=== PATIENT | male | born 1980 | race Caucasian/White ===

== ENCOUNTER → 2016-11-25 | Outpatient (CLI) | payer OTHER ==
--- NOTE | 2016-11-25 12:40 | XR ---
EXAMINATION TYPE: XR wrist complete RT DATE OF EXAM: 11/25/2016 COMPARISON: NONE HISTORY: Pain TECHNIQUE: Four views submitted. FINDINGS: The osseous structures are intact. The joint spaces are preserved and there is no acute fracture or dislocation. IMPRESSION: 1. No definite acute fracture or dislocation if symptoms persist, follow-up study in 7 to 10 days wo uld be suggested
== END ==
LOC: RADXRMAIN 12:00
PROVIDERS: ATTEND Emergency Medicine
DX: S60.211A Contusion of right wrist, initial encounter (principal)

== ENCOUNTER 2018-05-24 14:18 | Emergency (ER) | payer BC ==
[2018-05-24 14:33] VITALS: RESP 18
[2018-05-24] MEDS ORDERED: SODIUM CHLORIDE 0.9% 1,000 ML IV STA (14:48)
[2018-05-24] MEDS ORDERED: SODIUM CHLORIDE 0.9% 500 ML 500 ML IV STA (14:48)
--- NOTE | 2018-05-24 14:50 | ED ---
Seizure HPI - General Chief Complaint: Seizure Stated Complaint: poss seizure, head injury Time Seen by Provider: 05/24/18 14:35 Source: patient, RN notes reviewed, old records reviewed Mode of arrival: ambulatory Limitations: physical limitation - History of Present Illness Initial Comments: This is a 37-year-old male the ER for evaluation of what he believes is a seizure-like activity occurred during sleep. Patient has no recollection of injury, symptoms occurred 2 days ago. Patient denies loss of bowel or bladder denies biting his tongue. Denies drug or alcohol abuse. denies physical confrontation assault. Patient is without significant complaint. Presents today with his and family concerned for possible patient's having seizure MD Complaint: possible seizure -: days(s) Description of Episode: other (Patient was sleeping during event) -: second(s) (Unknown) Witnessed: no Trauma: Yes Seizure History: none Place: home Possible Precipitating Event: none Associated Symptoms: denies other symptoms Treatments Prior to Arrival: none - Related Data Home Medications Medication Instructions Recorded Confirmed No Known Home Medications 05/24/18 05/25/18 Allergies Allergy/AdvReac Type Severity Reaction Status Date / Time Fish Containing Products AdvReac Nausea Verified 05/25/18 08:11 [Fish] Review of Systems ROS Statement: Those systems with pertinent positive or pertinent negative responses have been documented in the HPI. ROS Other: All systems not noted in ROS Statement are negative. Past Medical History Past Medical History: Asthma History of Any Multi-Drug Resistant Organisms: None Reported Past Surgical History: No Surgical Hx Reported Past Psychological History: No Psychological Hx Reported Smoking Status: Never smoker Past Alcohol Use History: None Reported Past Drug Use History: None Reported General Exam Limitations: no limitations General appearance: alert, in no apparent distress Head exam: Present: normocephalic, normal inspection. Absent: atraumatic ( Patient does have abrasion bruising to right forearm, small healed lacerations above left eye and left) Eye exam: Present: normal appearance, PERRL, EOMI. Absent: scleral icterus, conjunctival injection, periorbital swelling ENT exam: Present: normal exam, mucous membranes moist Neck exam: Present: normal inspection. Absent: tenderness, meningismus, lymphadenopathy Respiratory exam: Present: normal lung sounds bilaterally. Absent: respiratory distress, wheezes, rales, rhonchi, stridor Cardiovascular Exam: Present: regular rate, normal rhythm, normal heart sounds. Absent: systolic murmur, diastolic murmur, rubs, gallop, clicks GI/Abdominal exam: Present: soft, normal bowel sounds. Absent: distended, tenderness, guarding, rebound, rigid Extremities exam: Present: normal inspection, full ROM, normal capillary refill. Absent: tenderness, pedal edema, joint swelling, calf tenderness Back exam: Present: normal inspection Neurological exam: Present: alert, oriented X3, CN II-XII intact Psychiatric exam: Present: normal affect, normal mood Skin exam: Present: warm, dry, intact, normal color. Absent: rash Course Vital Signs 05/24/18 05/24/18 14:27 17:12 Temperature 98.3 F 98.2 F Pulse Rate 82 78 Respiratory 18 18 Rate Blood Pressure 142/95 141/80 O2 Sat by Pulse 98 99 Oximetry - Reevaluation(s) Reevaluation #1: Medical record is reviewed Patient symptoms are improved, patient without complaint Spoke with patient at length regarding possible causes of seizure-like activity at his age, informed her results of testing negative, questions are answered. Patient comes in for discharge home Medical Decision Making - Medical Decision Making 37 male the ER for evaluation of head injury. Patient had seizure-like activity wall sleeping. Patient's brought in by . Patient has abrasions to right right forehead and a couple mild small laceration is healing. And is at that occurred 2 days ago. Patient is currently without significant complaining - Lab Data Result diagrams: 05/24/18 15:05 05/24/18 15:05 Lab Results 05/24/18 05/24/18 05/24/18 Range/Units 15:05 15:05 15:05 WBC 8.9 (3.8-10.6) k/uL RBC 5.06 (4.30-5.90) m/uL Hgb 15.7 (13.0-17.5) gm/dL Hct 46.0 (39.0-53.0) % MCV 90.9 (80.0-100.0) fL MCH 31.1 (25.0-35.0) pg MCHC 34.2 (31.0-37.0) g/dL RDW 13.6 (11.5-15.5) % Plt Count 266 (150-450) k/uL Neutrophils % 78 % Lymphocytes % 13 % Monocytes % 5 % Eosinophils % 2 % Basophils % 0 % Neutrophils # 6.9 (1.3-7.7) k/uL Lymphocytes # 1.2 (1.0-4.8) k/uL Monocytes # 0.5 (0-1.0) k/uL Eosinophils # 0.1 (0-0.7) k/uL Basophils # 0.0 (0-0.2) k/uL Sodium 141 (137-145) mmol/L Potassium 4.3 (3.5-5.1) mmol/L Chloride 105 (98-107) mmol/L Carbon Dioxide 25 (22-30) mmol/L Anion Gap 11 mmol/L BUN 10 (9-20) mg/dL Creatinine 1.25 (0.66-1.25) mg/dL Est GFR (CKD-EPI)AfAm 86 (>60 ml/min/1.73 sqM) Est GFR (CKD-EPI)NonAf 74 (>60 ml/min/1.73 sqM) Glucose 93 (74-99) mg/dL Plasma Lactic Acid Emmett 1.4 (0.7-2.0) mmol/L Calcium 9.9 (8.4-10.2) mg/dL Phosphorus 3.9 (2.5-4.5) mg/dL Magnesium 1.8 (1.6-2.3) mg/dL Total Bilirubin 0.9 (0.2-1.3) mg/dL AST 42 (17-59) U/L ALT 55 (21-72) U/L Alkaline Phosphatase 69 (38-126) U/L Total Protein 8.1 (6.3-8.2) g/dL Albumin 4.4 (3.5-5.0) g/dL Salicylates <1.0 mg/dL Acetaminophen <10.0 ug/mL Serum Alcohol <10 mg/dL - Radiology Data Radiology results: report reviewed (The brain negative for acute disease), image reviewed Disposition Clinical Impression: New onset seizure Disposition: HOME SELF-CARE Condition: Good Instructions: New-Onset Seizure in Adults (ED) Is patient prescribed a controlled substance at d/c from ED?: No Referrals: Kirk Dempsey MD [Primary Care Provider] - 1-2 days
[2018-05-24 15:40] LABS: Basophils % (A) 0 %; Eosinophils # (A) 0.1 k/uL (0-0.7); Eosinophils % (A) 2 %; HGB 15.7 gm/dL (13.0-17.5); Lymphocytes # (A) 1.2 k/uL (1.0-4.8); Lymphocytes % (A) 13 %; MCH 31.1 pg (25.0-35.0); MCHC 34.2 g/dL (31.0-37.0); MCV 90.9 fL (80.0-100.0); Mean Platelet Volume 8.2; Monocytes # (A) 0.5 k/uL (0-1.0); Monocytes % (A) 5 %; Neutrophils # (A) 6.9 k/uL (1.3-7.7); Neutrophils % (A) 78 %; Platelet Count 266 k/uL (150-450); RBC 5.06 m/uL (4.30-5.90); RDW 13.6 % (11.5-15.5); WBC 8.9 k/uL (3.8-10.6)
--- NOTE | 2018-05-24 15:52 | CT ---
EXAMINATION TYPE: CT brain wo con DATE OF EXAM: 05/24/2018 COMPARISON: None. HISTORY: Possible seizure CT DLP: 1062.4 mGycm. Automated Exposure Control for Dose Reduction was Utilized. TECHNIQUE: CT scan of the head is performed without contrast. FINDINGS: There is no acute intracranial hemorrhage, mass effect, or midline shift identified. The ventricles and sulci are within normal limits in size. Gonzalez-white matter differentiation is maintain ed. Constipation along the anterior interhemispheric fissure is seen. The globes are intact and the v isualized sinuses are clear. IMPRESSION: No acute intracranial hemorrhage, mass effect, or midline shift is seen.
[2018-05-24 15:57] LABS: ALT 55 U/L (21-72); AST 42 U/L (17-59); Acetaminophen <10.0 ug/mL; Albumin 4.4 g/dL (3.5-5.0); Alcohol <10 mg/dL; Alkaline Phosphatase 69 U/L (38-126); Anion Gap 11 mmol/L; Blood Urea Nitrogen 10 mg/dL (9-20); Calcium 9.9 mg/dL (8.4-10.2); Carbon Dioxide 25 mmol/L (22-30); Chloride 105 mmol/L (98-107); Glucose 93 mg/dL (74-99); Magnesium 1.8 mg/dL (1.6-2.3); Phosphorus 3.9 mg/dL (2.5-4.5); Potassium 4.3 mmol/L (3.5-5.1); Salicylate <1.0 mg/dL; Sodium 141 mmol/L (137-145); Total Bilirubin 0.9 mg/dL (0.2-1.3); Total Protein 8.1 g/dL (6.3-8.2)
[2018-05-24 17:14] VITALS: BP 141/80; PULSE 78; TEMP 98.2
== END 2018-05-24 17:12 | disposition home or self-care (01) ==
LOC: EC 14:18
DX: S01.81XA Laceration without foreign body of other part of head, initial encounter (principal); S50.11XA Contusion of right forearm, initial encounter; R56.9 Unspecified convulsions; Z91.013 Allergy to seafood
CPT/HCPCS: 36415; 70450; 80053; 80320; 83520; 83605; 83735; 84100; 85025; 96360; 96361; 99285

== ENCOUNTER 2018-05-25 07:13 | Inpatient (IN) | payer BC ==
--- NOTE | 2018-05-25 07:24 | ED ---
General Adult HPI - General Stated complaint: seizure Time Seen by Provider: 05/25/18 07:13 Source: RN notes reviewed - History of Present Illness Initial comments: This is a 37-year-old male who presents emergency Department with a possible seizure. Patient has no history of seizures except for yesterday he had a seizure he also has had escalating contusion over the right eye and a small laceration over the left eye. Patient was seen in the emergency department at that time and had a CAT scan it was negative. Patient was found down on the ground after the had come down to investigate what was going on because she heard some banging. That point in time the patient was no longer convulsing but he was not responding to the when EMS arrived they stated he was post ictal. Patient currently is alert and oriented 3 however he does not remember the events of the morning he has no complaint currently. Patient denies any chest pain difficult breathing shortness of breath per patient denies any drug or alcohol use. Patient denies any recent fever or chills. Patient denies any abdominal pain. Patient denies any nausea vomiting. - Related Data Home Medications Medication Instructions Recorded Confirmed No Known Home Medications 05/24/18 05/25/18 Allergies Allergy/AdvReac Type Severity Reaction Status Date / Time Fish Containing Products AdvReac Nausea Verified 05/25/18 08:11 [Fish] Review of Systems ROS Statement: Those systems with pertinent positive or pertinent negative responses have been documented in the HPI. ROS Other: All systems not noted in ROS Statement are negative. Past Medical History Past Medical History: Asthma History of Any Multi-Drug Resistant Organisms: None Reported Past Surgical History: No Surgical Hx Reported Past Psychological History: No Psychological Hx Reported Smoking Status: Never smoker Past Alcohol Use History: None Reported Past Drug Use History: None Reported General Exam - General Exam Comments Initial Comments: GENERAL: Patient is well-developed and well-nourished. Patient is nontoxic and well- hydrated and is in mild distress. Patient has a tender contusion over the right eye which she states was there from the other day when he was seen in the emergency department. ENT Neck is soft and supple. No significant lymphadenopathy is noted. Oropharynx is clear. Moist mucous membranes. Neck has full range of motion without eliciting any pain. EYES: The sclera were anicteric and conjunctiva were pink and moist. Extraocular movements were intact and pupils were equal round and reactive to light. Eyelids were unremarkable. Patient has a small laceration that appears to be healing on the left upper eyelid. PULMONARY: Unlabored respirations. Good breath sounds bilaterally. No audible rales rhonchi or wheezing was noted. CARDIOVASCULAR: There is a regular rate and rhythm without any murmurs gallops or rubs. ABDOMEN: Soft and nontender with normal bowel sounds. SKIN: Skin is clear with no lesions or rashes and otherwise unremarkable. NEUROLOGIC: Patient is alert and oriented x3. Cranial nerves II through XII are grossly intact. Motor and sensory are also intact. Normal speech, volume and content. Symmetrical smile. MUSCULOSKELETAL: Normal extremities with adequate strength and full range of motion. No lower extremity swelling or edema. No calf tenderness. LYMPHATICS: No significant lymphadenopathy is noted PSYCHIATRIC: Normal psychiatric evaluation. Course Vital Signs 05/25/18 05/25/18 07:17 08:15 Temperature 98.4 F Pulse Rate 99 93 Respiratory 18 18 Rate Blood Pressure 135/67 O2 Sat by Pulse 98 99 Oximetry Medical Decision Making - Medical Decision Making EKG shows normal sinus rhythm at 86 bpm SC interval is 154 QRS is 82 QT interval 358 QTC is 428. Patient's EKG shows no ST segment elevation or depression. Computed tomography scan of the brain shows no acute abnormality. Patient is back to his baseline and he has had no seizures while in the emergency department. I spoke with Dr. argueta we admitted the patient consult the neurology. - Lab Data Result diagrams: 05/25/18 07:25 05/25/18 07:25 Lab Results 05/25/18 05/25/18 05/25/18 Range/Units 07:25 07:25 07:25 WBC 7.5 (3.8-10.6) k/uL RBC 4.95 (4.30-5.90) m/uL Hgb 14.9 (13.0-17.5) gm/dL Hct 45.4 (39.0-53.0) % MCV 91.8 (80.0-100.0) fL MCH 30.2 (25.0-35.0) pg MCHC 32.9 (31.0-37.0) g/dL RDW 13.7 (11.5-15.5) % Plt Count 283 (150-450) k/uL Neutrophils % 59 % Lymphocytes % 27 % Monocytes % 5 % Eosinophils % 5 % Basophils % 1 % Neutrophils # 4.4 (1.3-7.7) k/uL Lymphocytes # 2.0 (1.0-4.8) k/uL Monocytes # 0.4 (0-1.0) k/uL Eosinophils # 0.4 (0-0.7) k/uL Basophils # 0.0 (0-0.2) k/uL Sodium 142 (137-145) mmol/L Potassium 4.5 (3.5-5.1) mmol/L Chloride 109 H (98-107) mmol/L Carbon Dioxide 16 L (22-30) mmol/L Anion Gap 17 mmol/L BUN 11 (9-20) mg/dL Creatinine 1.40 H (0.66-1.25) mg/dL Est GFR (CKD-EPI)AfAm 75 (>60 ml/min/1.73 sqM) Est GFR (CKD-EPI)NonAf 64 (>60 ml/min/1.73 sqM) Glucose 143 H (74-99) mg/dL Calcium 9.7 (8.4-10.2) mg/dL Magnesium 1.8 (1.6-2.3) mg/dL Total Bilirubin 1.0 (0.2-1.3) mg/dL AST 50 (17-59) U/L ALT 42 (21-72) U/L Alkaline Phosphatase 65 (38-126) U/L Total Protein 7.9 (6.3-8.2) g/dL Albumin 4.4 (3.5-5.0) g/dL Urine Color Light Yellow Urine Appearance Clear (Clear) Urine pH 5.0 (5.0-8.0) Ur Specific [place] 1.012 (1.001-1.035) Urine Protein 1+ H (Negative) Urine Glucose (UA) Negative (Negative) Urine Ketones 1+ H (Negative) Urine Blood Moderate H (Negative) Urine Nitrite Negative (Negative) Urine Bilirubin Negative (Negative) Urine Urobilinogen <2.0 (<2.0) mg/dL Ur Leukocyte Esterase Negative (Negative) Urine RBC <1 (0-5) /hpf Urine WBC 1 (0-5) /hpf Urine Bacteria Rare H (None) /hpf Urine Mucus Rare H (None) /hpf Urine Opiates Screen Not Detected (NotDetected) Ur Oxycodone Screen Not Detected (NotDetected) Urine Methadone Screen Not Detected (NotDetected) Ur Propoxyphene Screen Not Detected (NotDetected) Ur Barbiturates Screen Not Detected (NotDetected) U Tricyclic Antidepress Not Detected (NotDetected) Ur Phencyclidine Scrn Not Detected (NotDetected) Ur Amphetamines Screen Not Detected (NotDetected) U Methamphetamines Scrn Not Detected (NotDetected) U Benzodiazepines Scrn Not Detected (NotDetected) Urine Cocaine Screen Not Detected (NotDetected) U Marijuana (THC) Screen Detected H (NotDetected) Disposition Clinical Impression: New onset seizure Disposition: ADMITTED IP TO THIS HOSP Referrals: Kirk Argueta MD [Primary Care Provider] - 1-2 days Time of Disposition: 08:37
[2018-05-25 07:52] LABS: Basophils % (A) 1 %; Eosinophils # (A) 0.4 k/uL (0-0.7); Eosinophils % (A) 5 %; HCT 45.4 % (39.0-53.0); HGB 14.9 gm/dL (13.0-17.5); Lymphocytes % (A) 27 %; MCH 30.2 pg (25.0-35.0); MCHC 32.9 g/dL (31.0-37.0); MCV 91.8 fL (80.0-100.0); Mean Platelet Volume 7.8; Monocytes # (A) 0.4 k/uL (0-1.0); Monocytes % (A) 5 %; Neutrophils # (A) 4.4 k/uL (1.3-7.7); Neutrophils % (A) 59 %; Platelet Count 283 k/uL (150-450); RBC 4.95 m/uL (4.30-5.90); RDW 13.7 % (11.5-15.5); WBC 7.5 k/uL (3.8-10.6)
[2018-05-25 08:00] LABS: Appearance,Urine Clear (Clear); Bacteria,Urine Rare /hpf; Bilirubin,Urine Negative (Negative); Blood,Urine Moderate (Negative); Color,Urine Light Yellow; Glucose,Urine (UA) Negative (Negative); Ketones,Urine 1+ (Negative); Leukocyte Esterase,Urine Negative (Negative); Mucus,Urine Rare /hpf; Nitrite,Urine Negative (Negative); Protein,Urine 1+ (Negative); RBC,Urine <1 /hpf (0-5); Specific Gravity,Urine 1.012 (1.001-1.035); Urobilinogen,Urine <2.0 mg/dL (<2.0); WBC,Urine 1 /hpf (0-5)
[2018-05-25 08:02] LABS: Albumin 4.4 g/dL (3.5-5.0); Calcium 9.7 mg/dL (8.4-10.2); Magnesium 1.8 mg/dL (1.6-2.3); Potassium 4.5 mmol/L (3.5-5.1); Total Protein 7.9 g/dL (6.3-8.2)
[2018-05-25 08:04] LABS: Phencyclidine Screen,Urine Not Detected (NotDetected); Urn Cannabinoid Scrn Detected (NotDetected)
[2018-05-25 08:05] LABS: Amphetamine Screen,Urine Not Detected (NotDetected); Barbiturate Screen,Urine Not Detected (NotDetected); Benzodiazepines Screen,Urine Not Detected (NotDetected); Cocaine Screen,Urine Not Detected (NotDetected); Methadone Screen, Urine Not Detected (NotDetected); Opiate Screen,Urine Not Detected (NotDetected); Oxycodone Screen, Urine Not Detected (NotDetected); Tricyclic Antidepressant,Urine Not Detected (NotDetected)
--- NOTE | 2018-05-25 08:16 | CT ---
EXAMINATION TYPE: CT brain wo con DATE OF EXAM: 05/25/2018 COMPARISON: 05/24/2018 HISTORY: Possible seizure CT DLP: 1056.[address] of the brain was performed. The ventricles, basal cisterns and sulci overlying the cerebral convexities demonstrate a normal appe arance. There is no evidence for intracranial hemorrhage or sulcal effacement. No mass effects are seen. Osseous calvarium is intact. If symptoms persist consider MRI as clinically warranted. IMPRESSION: 1. No acute intracranial process is seen at this time.
[2018-05-25] MEDS ORDERED: SODIUM CHLORIDE 0.9% 1,000 ML IV ONE (08:37)
[2018-05-25] MEDS ORDERED: IBUPROFEN 400 MG TAB PO PRN (10:16)
[2018-05-25] MEDS ORDERED: LORazepam 2 MG/ML INJ IV PRN (10:43)
[2018-05-25] MEDS ORDERED: ACETAMINOPHEN TAB 325 MG TAB PO PRN (10:56)
[2018-05-25] MEDS: SODIUM CHLORIDE 0.9% 1,000 ML IV SCH (11:06)
[2018-05-25] MEDS: ACETAMINOPHEN IV (For NPO) 1,000 MG in EMPTY BAG 1 BAG IVPB PRN ×3 (12:05→23:34)
[2018-05-25] MEDS ORDERED: LIDOCAINE VISCOUS 2% 15 ML CUP MUCOUS MEM ONE (16:57)
--- NOTE | 2018-05-25 22:31 | P.CNNES ---
History of Present Illness Consult date: 05/25/18 Requesting physician: Cristhian Crooks Reason for Consult: seizure Chief complaint: seizure History of Present Illness: Neurology is consulting on a 37-year-old male for new onset seizure who presented to the ED. He has no prior seizure history, however patient was sleeping in bed and fell out of bed to the floor struck his head in the right frontal area and suffered a small laceration over the left eye. Patient was found on the ground by his after hearing some banging. Spouse described what appeared to be generalized tonic-clonic seizure and convulsion. When EMS arrived EMS reports that the patient was postictal. Patient did have oral trauma and did have release of bowels and/or bladder. Initially this was believed to have been the only occurrence. After speaking with the patient he also had a previous occurrence the night before and both occurrences took place and admitted that the seizures took place after the patient had been smoking marijuana. Patient previously did not disclose this information. Patient did disclose that he is a marijuana user but did not disclose the use in conjunction with the seizures. He works multiple jobs to support his family and is under high stress and reportedly was using marijuana to relax and decrease his stress at the end of the day. while speaking with the patient, became apparent that the patient was having short-term memory difficulty with regard to events in recent past information. Patient's spouse reports that he appears only approximately 50-65% back to baseline with regard to memory. Patient, spouse and nursing staff report no seizure-like activity since hospitalization. On contact, patient was alert and intermittently oriented 3, spouse at the bedside, no acute distress. Review of Systems all systems not noted in HPI are negative Past Medical History Past Medical History: Asthma Additional Past Medical History / Comment(s): Pt seen in ER 05/24/18 possible seizure/head injury. History of Any Multi-Drug Resistant Organisms: None Reported Past Surgical History: No Surgical Hx Reported Additional Past Surgical History / Comment(s): Surgery for undescended testicle as a teen. Past Anesthesia/Blood Transfusion Reactions: No Reported Reaction Smoking Status: Never smoker - Past Family History Father Family Medical History: CVA/TIA Additional Family Medical History / Comment(s): Father had a CVA. He is Mother Family Medical History: Cancer Additional Family Medical History / Comment(s): Mother of ovarian cancer. Medications and Allergies Home Medications Medication Instructions Recorded Confirmed Type No Known Home Medications 05/24/18 05/25/18 History Allergies Allergy/AdvReac Type Severity Reaction Status Date / Time Fish Containing Products AdvReac Nausea Verified 05/25/18 08:11 [Fish] Physical Examination - Vital Signs Vital Signs: Vital Signs Temp Pulse Pulse Pulse Resp BP BP 05/25/18 19:43 98.4 F 80 17 136/85 05/25/18 16:07 90 16 05/25/18 14:47 99.1 F 90 16 136/89 05/25/18 09:14 98.5 F 78 16 140/95 05/25/18 09:00 89 18 121/84 05/25/18 08:15 93 18 05/25/18 07:17 98.4 F 99 18 135/67 Pulse Ox 05/25/18 19:43 97 05/25/18 16:07 05/25/18 14:47 99 05/25/18 09:14 99 05/25/18 09:00 99 05/25/18 08:15 99 05/25/18 07:17 98 Intake and Output 05/25/18 05/25/18 05/25/18 06:59 14:59 22:59 Intake Total 900 325 Balance 900 325 Intake: Intake, IV Titration 400 Amount Sodium Chloride 0.9% 1, 250 000 ml @ 125 mls/hr IV . Q8H [facility] Rx#:[id number] Sodium Chloride 0.9% 1, 150 000 ml @ 75 mls/hr IV . [id number] Rx#:[id number] Oral 500 325 Other: Weight 77.111 kg 77.111 kg General appearance: Alert & oriented x23, no apparent distress. Head: Atraumatic, normocephalic, normal inspection Eyes: PERRLA, EOMI Ear, nose and throat: Normal exam, mucous membranes moist Neck: Normal inspection, absent tenderness, lymphadenopathy. Respiratory: No increased work of breathing Cardiovascular: Regular rate, rhythm GI/abdominal: No guarding, no rigidity Extremities: moves all extremities Neurological: cranial nerves II through XII intact no lateralizing weakness no seizure activity noted on physical exam no pronator drift and no nystagmus. Strength: full in all 4 extremities Sensation: Left lower extremity: normal Right lower extremity: normal Left upper extremity: normal Right upper extremity:normal Psychological: Mood and Affect appropriate for setting Results CT brain negative for acute process EEG taken MRI brain ordered - Laboratory Findings CBC and BMP: 05/25/18 07:25 05/25/18 07:25 Abnormal Lab Findings: Abnormal Labs 05/25/18 05/25/18 07:25 07:25 Chloride 109 H Carbon Dioxide 16 L Creatinine 1.40 H Glucose 143 H Urine Protein 1+ H Urine Ketones 1+ H Urine Blood Moderate H Urine Bacteria Rare H Urine Mucus Rare H U Marijuana (THC) Screen Detected H Assessment and Plan (1) Cannabis use with cannabis-induced disorder Current Visit: Yes Status: Acute Code(s): F12.99 - CANNABIS USE, UNSP WITH UNSP CANNABIS-INDUCED DISORDER SNOMED Code(s): 92436951 (2) New onset seizure Current Visit: Yes Status: Acute Code(s): R56.9 - UNSPECIFIED CONVULSIONS SNOMED Code(s): 57402643 (3) Concussion Current Visit: Yes Status: Acute Code(s): S06.0X9A - CONCUSSION W LOSS OF CONSCIOUSNESS OF UNSP DURATION, INIT SNOMED Code(s): 340006581 (4) Marijuana abuse Current Visit: Yes Status: Acute Code(s): F12.10 - CANNABIS ABUSE, UNCOMPLICATED SNOMED Code(s): 59253969 Plan: Patient does appear to have experienced two new onset seizures directly related and in conjunction with marijuana use. Seizures occurred within 1-4 hours of marijuana use. It is unable to be determined if the marijuana was laced with an illicit substance or not. At this time it does appear that the seizures were related to the use. However an EEG has been ordered for further workup to rule out seizure disorder. Patient does have evident short-term memory dysfunction at this time. He does have a significant contusion to his right frontal area and a small laceration to his left eyelid which does make postconcussion syndrome likely as a possible etiology to account for patient's memory dysfunction. Patient does deny headache however, I am going to order an MRI of the brain to further investigate any other underlying etiology that could account for patient's symptoms at this time. For now, the patient will not be started on seizure medication. Patient has had no new seizure activity since arriving at the facility. If patient does begin to experience any further seizure activity, patient will be given a loading dose of 1000 mg IV Keppra and neurology notified immediately for further instructions. Seizure precautions to remain in place as implemented. Neurological checks as implemented at this time. Further updates to follow. Patient was advised under [place] law he cannot operate a motor vehicle for 6 months from the date of last occurrence of seizure. Status: Neurology will continue to follow and provide updates as needed or warranted. I have discussed the plan of care with the physician prior to implementation and he agrees with the plan as implemented.
[2018-05-26] MEDS: SODIUM CHLORIDE 0.9% 1,000 ML IV SCH ×2 (00:33→04:25)
[2018-05-26 07:09] LABS: Calcium 9.2 mg/dL (8.4-10.2); Potassium 4.3 mmol/L (3.5-5.1)
[2018-05-26 09:15] VITALS: BP 141/80; PULSE 74; RESP 16; TEMP 97.9
--- NOTE | 2018-05-26 09:26 | P.HPIM ---
<Anne Chapin A - Last Filed: 05/25/18 13:07> History of Present Illness H&P Date: 05/25/18 Chief Complaint: seizure 37-year-old -Vin[place]ian male with no significant past medical history who presented to the emergency room after he believes the patient had a seizure. Apparently she could hear the patient "flopping on the ground" and by the time she got upstairs, all movements had stopped and he was unresponsive. EMS was called who reported that the patient was post-ictal. The patient was also evaluated in the ER on 05/24/2018 after he had what he believes to be a seizure at home the day before. On 05/23/2018 the patient reported that he took a nap and when he woke up he had a bruise to his right forehead, a cut on his left first digit, a small laceration to his left eye and had bit his tongue. He was discharged home from the ER. The patient reports decreased oral intake over the last 24-48 hours due to the pain and swelling from biting his tongue. Denies short of breath. Denies chest pain or pressure. Denies nausea or vomiting. Denies fever or chills. Denies lightheadedness or dizziness. CT of the brain was completed which was negative for an acute intracranial process. Laboratory data upon admission reveals white count 7.5. Hemoglobin 14.9. Platelet count 283. Sodium 142. Potassium 4.5. BUN 11. Crit and 1.40. Glucose 143. Magnesium 1.8. Toxicology was positive for marijuana The patient was admitted to the hospital under the care of Dr. Tapia. Consultations were placed to neurology. REVIEW OF SYSTEMS: Those systems with pertinent positive or pertinent negative responses have been documented in the HPI PHYSICAL EXAM: GENERAL: This is a 37-year-old -Vincentian male in no apparent distress at the time of examination. Pleasant and cooperative. HEENT: Head normocephalic. Pupils are equal, round, and reactive to light. Sclerae anicteric. Conjunctivae are clear. Mucus membranes of the mouth are moist. Neck is supple. RESPIRATORY: Clear to auscultation. No wheezes, rales, or rhonchi. No use of accessory muscles. Patient maintaining oxygen saturation greater than 92%. No chest wall tenderness is noted on palpation or with deep breathing. CARDIOVASCULAR: Regular rate and rhythm. S1 and S2 noted. No systolic or diastolic murmur auscultated. No JVD noted. No S3 or S4 noted. GASTROINTESTINAL: No distention noted. Abdomen soft and round. Normal active bowel sounds auscultated x 4 quadrants. No pain or tenderness noted upon palpation. INTEGUMENTARY: Small laceration left upper eye lid. No cyanosis. No jaundice. No rashes noted. No cellulitis noted. EXTREMITIES: 2+ peripheral pulses. No evidence of peripheral edema. No calf tenderness noted. NEUROLOGIC: Cranial nerves II-XII intact. PSYCHIATRIC: Awake, alert, and oriented X 3. Appropriate affect. Intact judgement and insight. ASSESSMENT: New-onset seizures Trauma to tongue, patient bit during seizure Acute kidney injury, creatinine 1.4 on admission, baseline 1.2, secondary to decreased oral intake due to painful and swollen tongue Cannabis use PLAN: Neurology on consult. Await further recommendations and input Defer anti-seizure medications to neurology Seizure precautions EEG Patient states he is unable to swallow normally due to his pain and swelling of his tongue. Will place patient on a clear liquid diet for now. IV Tylenol for pain. Normal saline at 125 mL an hour. Recheck labs in a.m. Avoid nephrotoxic agents Monitor vital signs and address as appropriate Discharge planning: Patient to return home when stable Further recommendations pending patient's course Nurse practitioner note has been reviewed by physician. Signing provider agrees with the documented findings, assessment, and plan of care. Past Medical History Past Medical History: Asthma Additional Past Medical History / Comment(s): Pt seen in ER 05/24/18 possible seizure/head injury. History of Any Multi-Drug Resistant Organisms: None Reported Past Surgical History: No Surgical Hx Reported Additional Past Surgical History / Comment(s): Surgery for undescended testicle as a teen. Past Anesthesia/Blood Transfusion Reactions: No Reported Reaction Smoking Status: Never smoker - Past Family History Father Family Medical History: CVA/TIA Additional Family Medical History / Comment(s): Father had a CVA. He is Mother Family Medical History: Cancer Additional Family Medical History / Comment(s): Mother of ovarian cancer. Medications and Allergies Home Medications Medication Instructions Recorded Confirmed Type No Known Home Medications 05/24/18 05/25/18 History Allergies Allergy/AdvReac Type Severity Reaction Status Date / Time Fish Containing Products AdvReac Nausea Verified 05/25/18 08:11 [Fish] Physical Exam Vitals: Vital Signs Temp Pulse Pulse Resp BP BP Pulse Ox 05/25/18 09:14 98.5 F 78 16 140/95 99 05/25/18 09:00 89 18 121/84 99 05/25/18 08:15 93 18 99 05/25/18 07:17 98.4 F 99 18 135/67 98 Intake and Output 05/24/18 05/25/18 05/25/18 22:59 06:59 14:59 Other: Weight 77.111 kg Results CBC & Chem 7: 05/25/18 07:25 05/25/18 07:25 Labs: Abnormal Lab Results - Last 24 Hours (Table) 05/25/18 05/25/18 Range/Units 07:25 07:25 Chloride 109 H (98-107) mmol/L Carbon Dioxide 16 L (22-30) mmol/L Creatinine 1.40 H (0.66-1.25) mg/dL Glucose 143 H (74-99) mg/dL Urine Protein 1+ H (Negative) Urine Ketones 1+ H (Negative) Urine Blood Moderate H (Negative) Urine Bacteria Rare H (None) /hpf Urine Mucus Rare H (None) /hpf U Marijuana (THC) Screen Detected H (NotDetected) Thrombosis Risk Factor Assmnt - Choose All That Apply Any of the Below Risk Factors Present?: No Other Risk Factors: No Other congenital or acquired thrombophilia - If yes, enter type in comment: No Thrombosis Risk Factor Assessment Level: Very Low Risk <Yobany Tapia Jr - Last Filed: 05/26/18 09:26> Physical Exam Osteopathic Statement: *. No significant issues noted on an osteopathic structural exam other than those noted in the History and Physical/Consult. Vitals: Vital Signs Temp Pulse Pulse Resp BP Pulse Ox 05/26/18 07:00 97.9 F 74 16 141/80 99 05/25/18 19:43 98.4 F 80 17 136/85 97 05/25/18 16:07 90 16 05/25/18 14:47 99.1 F 90 16 136/89 99 Intake and Output 05/25/18 05/26/18 05/26/18 22:59 06:59 14:59 Intake Total 325 60 Balance 325 60 Intake: Intake, IV Titration 60 Amount Sodium Chloride 0.9% 1, 60 000 ml @ 75 mls/hr IV . [id number] ONE Rx#:[id number] Oral 325 Other: Weight 77.111 kg Results CBC & Chem 7: 05/25/18 07:25 05/26/18 06:41 Labs: Abnormal Lab Results - Last 24 Hours (Table) 05/26/18 Range/Units 06:41 Chloride 109 H (98-107) mmol/L
--- NOTE | 2018-05-26 09:33 | P.DS ---
Providers Date of admission: 05/25/18 08:42 Expected date of discharge: 05/26/18 Attending physician: Yobany Tapia Consults: 05/25/18 08:37 Consult Physician Urgent Consulting Provider: Jack Kraus Consult Reason/Comments: new onset seizures Do you want consulting provider notified?: Yes Primary care physician: Kirk Dempsey [facility] Course: Patient was evaluated in the emergency room on 2 different occasions in the same week prior to both episodes patient had been partaking of marijuana. Patient's stated that the second time she observed him to the going through a tonic clonic type seizure and the emergency room staff noted that the patient appeared to be post ictal at the time of arrival in the emergency room the second This patient did not give me any family history of febrile seizures and siblings or family members no episodes of seizure disorder otherwise in any other family member General: [Patient awake, alert and oriented times 3. Patient in no acute distress.] HEENT: [PERRL. EOMI. No pharyngeal erythema or exudate.] Neck: [No adenopathy.] Cardiac: [Heart regular in rate and rhythm. No S3. No S4. No clicks, rubs. No murmur.] Lungs: [Clear to auscultation bilaterally.] Abdomen: [No mass. No organomegaly. Bowel sounds presnt and normoactive in all 4 quadrants.] Extremes: [No edema no cyanosis no claudication normal pulses] : [] Musculoskeletal: [No joint erythema, edema or tenderness.] Skin: [No rash.] Neurologic: [No lateralizing deficits. CN II - XII grossly intact.] Lymphatic: [No adenopathy.] Plan - Discharge Summary Discharge Rx Participant: No New Discharge Prescriptions: No Action No Known Home Medications Discharge Medication List No Known Home Medications 05/24/18 [History] Follow up Appointment(s)/Referral(s): Kirk Dempsey MD [Primary Care Provider] - 1-2 days Discharge Disposition: HOME SELF-CARE
--- NOTE | 2018-05-27 11:36 | EEG ---
ELECTROENCEPHALOGRAM REPORT DATE OF SERVICE: 05/25/2018. REASON FOR TESTING: Seizure. DESCRIPTION OF THE PROCEDURE: This EEG was performed using a 21 channel digital electroencephalograph, following international 10-20 system. DESCRIPTION OF THE RECORDING: From the beginning of the tracing, with patient's eyes closed, the background rhythm was mostly consisting of 8-9 Hz alpha frequency in the posterior occipital leads. No obvious asymmetry is seen. Photic stimulation was performed with a minimal driving response seen. No pathological waves were elicited. Occasional movement and muscle artifacts are seen. The lead artifacts are also noticed. The patient remains awake throughout the tracing. No epileptiform discharges were seen. His EKG lead showed a regular rate and rhythm. INTERPRETATION: This awake EEG can be considered within normal limits. There was no asymmetry seen. No epileptiform discharges were noticed. The absence of epileptiform discharges does not rule out the diagnosis of epilepsy; therefore clinical correlation is recommended. [id number] / IJN: [id number] /
== END 2018-05-26 10:06 | disposition home or self-care (01) | DRG 101 ==
LOC: EC 07:13 → 4SSUR 08:42
PROVIDERS: ADMIT Family Medicine; ATTEND Family Medicine
DX: R56.9 Unspecified convulsions (principal); N17.9 Acute kidney failure, unspecified; S06.0X9A Concussion with loss of consciousness of unspecified duration, initial encounter; R40.2362 Coma scale, best motor response, obeys commands, at arrival to emergency department; R40.2142 Coma scale, eyes open, spontaneous, at arrival to emergency department; R40.2252 Coma scale, best verbal response, oriented, at arrival to emergency department; J45.909 Unspecified asthma, uncomplicated; S01.111A Laceration without foreign body of right eyelid and periocular area, initial encounter; S01.552A Open bite of oral cavity, initial encounter; W06.XXXA Fall from bed, initial encounter; Z91.013 Allergy to seafood; Z82.3 Family history of stroke; Z80.41 Family history of malignant neoplasm of ovary
CPT/HCPCS: 36415; 70450; 80048; 80053; 80306; 81001; 83735; 85025; 93005; 95816; 99285

== ENCOUNTER 2018-06-24 10:54 | Emergency (ER) | payer BC ==
[2018-06-24] MEDS ORDERED: SODIUM CHLORIDE 0.9% 1,000 ML IV STA (11:08)
[2018-06-24 11:26] VITALS: RESP 18
[2018-06-24 11:45] LABS: ALT 51 U/L (21-72); AST 35 U/L (17-59); Albumin 5.1 g/dL (3.5-5.0); Alcohol <10 mg/dL; Alkaline Phosphatase 72 U/L (38-126); Anion Gap 21 mmol/L; Blood Urea Nitrogen 9 mg/dL (9-20); Calcium 10.4 mg/dL (8.4-10.2); Carbon Dioxide 15 mmol/L (22-30); Chloride 106 mmol/L (98-107); Glucose 138 mg/dL (74-99); Potassium 4.7 mmol/L (3.5-5.1); Sodium 142 mmol/L (137-145); Total Bilirubin 0.9 mg/dL (0.2-1.3); Total Protein 8.8 g/dL (6.3-8.2)
--- NOTE | 2018-06-24 11:50 | ED ---
General Adult HPI - General Chief complaint: Seizure Stated complaint: Seizure Time Seen by Provider: 06/24/18 10:58 Source: patient, EMS, RN notes reviewed, old records reviewed Mode of arrival: EMS Limitations: no limitations - History of Present Illness Initial comments: Patient's a 37-year-old male presented to the emergency room today by EMS, the chief complaint of possible seizure. Patient states he does not remember anything from this morning. States he is tired. He denies any other complaints. History provided by EMS stating that they received a phone call patient was found in his car and they state he was somewhat unresponsive they did give him Narcan which did arouse him. Patient denies any other complaints or symptoms currently. Recent visit to the hospital for possible seizure month ago which patient states he has no history of seizures. He states he does not take any medications. Patient denies any recent fever, chills, shortness of breath, chest pain, back pain, abdominal pain, nausea or vomiting, numbness or tingling, dysuria or hematuria, constipation or diarrhea, headaches or visual changes, or any other complaints. - Related Data Home Medications Medication Instructions Recorded Confirmed No Known Home Medications 05/24/18 05/25/18 Allergies Allergy/AdvReac Type Severity Reaction Status Date / Time Fish Containing Products AdvReac Nausea Verified 06/24/18 11:23 [Fish] Review of Systems ROS Statement: Those systems with pertinent positive or pertinent negative responses have been documented in the HPI. ROS Other: All systems not noted in ROS Statement are negative. Past Medical History Past Medical History: Asthma Additional Past Medical History / Comment(s): Pt seen in ER 05/24/18 possible seizure/head injury. History of Any Multi-Drug Resistant Organisms: None Reported Past Surgical History: No Surgical Hx Reported Additional Past Surgical History / Comment(s): Surgery for undescended testicle as a teen. Past Anesthesia/Blood Transfusion Reactions: No Reported Reaction Past Psychological History: No Psychological Hx Reported Smoking Status: Never smoker Past Alcohol Use History: None Reported Past Drug Use History: None Reported - Past Family History Father Family Medical History: CVA/TIA Additional Family Medical History / Comment(s): Father had a CVA. He is Mother Family Medical History: Cancer Additional Family Medical History / Comment(s): Mother of ovarian cancer. General Exam - General Exam Comments Initial Comments: General: The patient is awake and alert, in no distress, and does not appear acutely ill. Eye: Pupils are equal, round and reactive to light, extra-ocular movements are intact. No nystagmus. There is normal conjunctiva bilaterally. No signs of icterus. Ears, nose, mouth and throat: There are moist mucous membranes and no oral lesions. Neck: The neck is supple, there is no tenderness or JVD. Cardiovascular: There is a regular rate and rhythm. No murmur, rub or gallop is appreciated. Respiratory: Lungs are clear to auscultation, respirations are non-labored, breath sounds are equal. No wheezes, stridor, rales, or rhonchi. Gastrointestinal: Abdomen soft nontender. Musculoskeletal: Normal ROM, no tenderness. Strength 5/5. Sensation intact. Radial pulses equal bilaterally 2+. Neurological: A&O x 3. CN II-XII intact, There are no obvious motor or sensory deficits. Coordination appears grossly intact. Speech is normal. Skin: Skin is warm and dry and no rashes or lesions are noted. Psychiatric: Cooperative Limitations: no limitations Course Vital Signs 06/24/18 06/24/18 11:22 13:37 Temperature 98.9 F Pulse Rate 93 84 Respiratory 18 18 Rate Blood Pressure 127/84 132/86 O2 Sat by Pulse 98 98 Oximetry Medical Decision Making - Medical Decision Making Patient reexamined at this time shows no signs of distress. Is alert and oriented at this time. He does admit that he got up this morning and he was going to get gas for his car. He states the next thing he remembers is waking appear in the emergency room. He does not remember EMS bringing him here. Patient did have a episode a month ago where he fell down some steps and he believes it could be a possible seizure. He states that he's not been confirmed. Patient did have CT of the brain performed today which showed evidence for sinus disease but no other acute abnormality. Patient's labs been reviewed shows some mild dehydration. Was given fluids here in emergency room. Patient completely asymptomatic at this time has no complaints. Patient's junk screen positive for marijuana. Remaining labs unremarkable. Options were discussed with the patient about admission. Was discussed with the patient that he should see a neurologist for possible seizures. There is no neurology coverage currently here at [facility]. Was discussed that we wouldn't transferred patient. He his not agreeable to this. States he would prefer to follow up outpatient. His is at bedside. Patient advised that he should not drive or operate any machinery until cleared by family physician or neurology. Patient will be discharged home to follow-up. He'll be given information to try to make an appointment. He is advised to return here to emergency room if any symptoms increase worsen or for any other concerns. - Lab Data Result diagrams: 06/24/18 11:19 06/24/18 11:19 Lab Results 06/24/18 06/24/18 06/24/18 Range/Units 11:19 11: 11:29 WBC 8.8 (3.8-10.6) k/uL RBC 5.21 (4.30-5.90) m/uL Hgb 15.9 (13.0-17.5) gm/dL Hct 49.5 (39.0-53.0) % MCV 95.0 (80.0-100.0) fL MCH 30.5 (25.0-35.0) pg MCHC 32.1 (31.0-37.0) g/dL RDW 14.1 (11.5-15.5) % Plt Count 321 (150-450) k/uL Neutrophils % 54 % Lymphocytes % 28 % Monocytes % 4 % Eosinophils % 9 % Basophils % 1 % Neutrophils # 4.8 (1.3-7.7) k/uL Lymphocytes # 2.5 (1.0-4.8) k/uL Monocytes # 0.3 (0-1.0) k/uL Eosinophils # 0.8 H (0-0.7) k/uL Basophils # 0.1 (0-0.2) k/uL D-Dimer (<0.60) mg/L FEU Sodium 142 (137-145) mmol/L Potassium 4.7 (3.5-5.1) mmol/L Chloride 106 (98-107) mmol/L Carbon Dioxide 15 L (22-30) mmol/L Anion Gap 21 mmol/L BUN 9 (9-20) mg/dL Creatinine 1.40 H (0.66-1.25) mg/dL Est GFR (CKD-EPI)AfAm 75 (>60 ml/min/1.73 sqM) Est GFR (CKD-EPI)NonAf 64 (>60 ml/min/1.73 sqM) Glucose 138 H (74-99) mg/dL Calcium 10.4 H (8.4-10.2) mg/dL Total Bilirubin 0.9 (0.2-1.3) mg/dL AST 35 (17-59) U/L ALT 51 (21-72) U/L Alkaline Phosphatase 72 (38-126) U/L Total Creatine Kinase 259 H (55-170) U/L CK-MB (CK-2) 0.7 (0.0-2.4) ng/mL CK-MB (CK-2) Rel Index 0.3 Troponin I <0.012 (0.000-0.034) ng/mL Total Protein 8.8 H (6.3-8.2) g/dL Albumin 5.1 H (3.5-5.0) g/dL Urine Color Urine Appearance (Clear) Urine pH (5.0-8.0) Ur Specific [place] (1.001-1.035) Urine Protein (Negative) Urine Glucose (UA) (Negative) Urine Ketones (Negative) Urine Blood (Negative) Urine Nitrite (Negative) Urine Bilirubin (Negative) Urine Urobilinogen (<2.0) mg/dL Ur Leukocyte Esterase (Negative) Urine WBC (0-5) /hpf Ur Squamous Epith Cells (0-4) /hpf Urine Opiates Screen (NotDetected) Ur Oxycodone Screen (NotDetected) Urine Methadone Screen (NotDetected) Ur Propoxyphene Screen (NotDetected) Ur Barbiturates Screen (NotDetected) U Tricyclic Antidepress (NotDetected) Ur Phencyclidine Scrn (NotDetected) Ur Amphetamines Screen (NotDetected) U Methamphetamines Scrn (NotDetected) U Benzodiazepines Scrn (NotDetected) Urine Cocaine Screen (NotDetected) U Marijuana (THC) Screen (NotDetected) Serum Alcohol <10 mg/dL 06/24/18 06/24/18 Range/Units 11:29 11:34 WBC (3.8-10.6) k/uL RBC (4.30-5.90) m/uL Hgb (13.0-17.5) gm/dL Hct (39.0-53.0) % MCV (80.0-100.0) fL MCH (25.0-35.0) pg MCHC (31.0-37.0) g/dL RDW (11.5-15.5) % Plt Count (150-450) k/uL Neutrophils % % Lymphocytes % % Monocytes % % Eosinophils % % Basophils % % Neutrophils # (1.3-7.7) k/uL Lymphocytes # (1.0-4.8) k/uL Monocytes # (0-1.0) k/uL Eosinophils # (0-0.7) k/uL Basophils # (0-0.2) k/uL D-Dimer 0.56 (<0.60) mg/L FEU Sodium (137-145) mmol/L Potassium (3.5-5.1) mmol/L Chloride (98-107) mmol/L Carbon Dioxide (22-30) mmol/L Anion Gap mmol/L BUN (9-20) mg/dL Creatinine (0.66-1.25) mg/dL Est GFR (CKD-EPI)AfAm (>60 ml/min/1.73 sqM) Est GFR (CKD-EPI)NonAf (>60 ml/min/1.73 sqM) Glucose (74-99) mg/dL Calcium (8.4-10.2) mg/dL Total Bilirubin (0.2-1.3) mg/dL AST (17-59) U/L ALT (21-72) U/L Alkaline Phosphatase (38-126) U/L Total Creatine Kinase (55-170) U/L CK-MB (CK-2) (0.0-2.4) ng/mL CK-MB (CK-2) Rel Index Troponin I (0.000-0.034) ng/mL Total Protein (6.3-8.2) g/dL Albumin (3.5-5.0) g/dL Urine Color Light Yellow Urine Appearance Clear (Clear) Urine pH 6.5 (5.0-8.0) Ur Specific [place] 1.012 (1.001-1.035) Urine Protein 1+ H (Negative) Urine Glucose (UA) Negative (Negative) Urine Ketones Trace H (Negative) Urine Blood Negative (Negative) Urine Nitrite Negative (Negative) Urine Bilirubin Negative (Negative) Urine Urobilinogen <2.0 (<2.0) mg/dL Ur Leukocyte Esterase Negative (Negative) Urine WBC <1 (0-5) /hpf Ur Squamous Epith Cells <1 (0-4) /hpf Urine Opiates Screen Not Detected (NotDetected) Ur Oxycodone Screen Not Detected (NotDetected) Urine Methadone Screen Not Detected (NotDetected) Ur Propoxyphene Screen Not Detected (NotDetected) Ur Barbiturates Screen Not Detected (NotDetected) U Tricyclic Antidepress Not Detected (NotDetected) Ur Phencyclidine Scrn Not Detected (NotDetected) Ur Amphetamines Screen Not Detected (NotDetected) U Methamphetamines Scrn Not Detected (NotDetected) U Benzodiazepines Scrn Not Detected (NotDetected) Urine Cocaine Screen Not Detected (NotDetected) U Marijuana (THC) Screen Detected H (NotDetected) Serum Alcohol mg/dL Disposition Clinical Impression: Seizure Disposition: HOME SELF-CARE Condition: Good Instructions: New-Onset Seizure in Adults (ED) Additional Instructions: Please follow-up with family physician/neurologist in the next 2 days as discussed. Please do not drive a vehicle or operate any machinery until cleared by family physician or neurologist as discussed. Please return here to emergency room if any symptoms increase or worsen or for any other concerns. Is patient prescribed a controlled substance at d/c from ED?: No Referrals: Nonstaff,Physician [Primary Care Provider] - 1-2 days Emil Go DO [STAFF PHYSICIAN] - 1-2 days Alexy Maxwell MD [STAFF PHYSICIAN] - 1-2 days Jack Kraus MD [Medical Doctor] - 1-2 days Time of Disposition: 15:06
[2018-06-24 11:51] LABS: Basophils # (A) 0.1 k/uL (0-0.2); Basophils % (A) 1 %; Eosinophils # (A) 0.8 k/uL (0-0.7); Eosinophils % (A) 9 %; HCT 49.5 % (39.0-53.0); HGB 15.9 gm/dL (13.0-17.5); Lymphocytes # (A) 2.5 k/uL (1.0-4.8); Lymphocytes % (A) 28 %; MCH 30.5 pg (25.0-35.0); MCHC 32.1 g/dL (31.0-37.0); Monocytes # (A) 0.3 k/uL (0-1.0); Monocytes % (A) 4 %; Neutrophils # (A) 4.8 k/uL (1.3-7.7); Neutrophils % (A) 54 %; Platelet Count 321 k/uL (150-450); RBC 5.21 m/uL (4.30-5.90); RDW 14.1 % (11.5-15.5); WBC 8.8 k/uL (3.8-10.6)
[2018-06-24 11:59] LABS: Creatine Kinase 259 U/L (55-170)
[2018-06-24 12:12] LABS: Creatine Kinase MB 0.7 ng/mL (0.0-2.4); Troponin I <0.012 ng/mL (0.000-0.034)
--- NOTE | 2018-06-24 12:29 | CT ---
EXAMINATION TYPE: CT brain wo con DATE OF EXAM: 06/24/2018 COMPARISON: Previous study dated 05/25/2018. HISTORY: Possible seizure CT DLP: 1086.4 mGycm Automated exposure control for dose reduction was used. FINDINGS: Central structures are midline. There is no evidence of hydrocephalus. No acute focal lesion, mass ef fect or midline shift is seen. I do not see evidence of intracranial blood. There is mild mucoperiosteal thickening involving the ethmoid sinuses. The remainder the paranasal si nuses and mastoids are clear. The bony calvarium is intact. IMPRESSION: 1. NO ACUTE INTRACRANIAL ABNORMALITY. 2. MILD, CHRONIC ETHMOIDAL SINUS MUCOSAL DISEASE.
[2018-06-24 12:34] LABS: Appearance,Urine Clear (Clear); Bilirubin,Urine Negative (Negative); Blood,Urine Negative (Negative); Color,Urine Light Yellow; Glucose,Urine (UA) Negative (Negative); Ketones,Urine Trace (Negative); Leukocyte Esterase,Urine Negative (Negative); Nitrite,Urine Negative (Negative); PH, Urine 6.5 (5.0-8.0); Protein,Urine 1+ (Negative); Specific Gravity,Urine 1.012 (1.001-1.035); Squamous Epithelial Cell,Urine <1 /hpf (0-4); Urobilinogen,Urine <2.0 mg/dL (<2.0)
[2018-06-24 12:55] LABS: Amphetamine Screen,Urine Not Detected (NotDetected); Barbiturate Screen,Urine Not Detected (NotDetected); Benzodiazepines Screen,Urine Not Detected (NotDetected); Cocaine Screen,Urine Not Detected (NotDetected); Methadone Screen, Urine Not Detected (NotDetected); Opiate Screen,Urine Not Detected (NotDetected); Oxycodone Screen, Urine Not Detected (NotDetected); Phencyclidine Screen,Urine Not Detected (NotDetected); Tricyclic Antidepressant,Urine Not Detected (NotDetected); Urn Cannabinoid Scrn Detected (NotDetected)
[2018-06-24 15:22] VITALS: BP 138/85; PULSE 92; TEMP 99.1
== END 2018-06-24 15:20 | disposition home or self-care (01) ==
LOC: EC 10:54
DX: R56.9 Unspecified convulsions (principal); E86.0 Dehydration; J32.9 Chronic sinusitis, unspecified; Z91.013 Allergy to seafood
CPT/HCPCS: 36415; 70450; 80053; 80306; 80320; 81001; 82550; 82553; 84484; 85025; 85379; 93005; 96360; 96361; 99285

== ENCOUNTER 2018-07-29 14:19 | Observation (INO) | payer BC ==
--- NOTE | 2018-07-29 15:10 | ED ---
General Adult HPI - General Source: patient, RN notes reviewed Mode of arrival: ambulatory Limitations: no limitations <Shivam Hassan - Last Filed: 07/29/18 17:06> <Drew Medina - Last Filed: 07/29/18 19:42> - General Chief complaint: Nausea/Vomiting/Diarrhea Stated complaint: Vomiting Time Seen by Provider: 07/29/18 14:31 - History of Present Illness Initial comments: 37-year-old male with past medical history of possible seizures presents to the emergency department for a chief complaint of nausea and lightheadedness times one day. Patient states he woke up this morning with these symptoms. Patient is uncooperative in answering questions so is main historian. She states that patient woke up this morning and felt lightheaded and nauseous. States he has vomited multiple times. He denies dizziness or the sensation of room spinning. He denies chest pain or shortness of breath. Patient states this has happened before for approximately 3 times. He states it has been followed by a seizure in the past. Patient has been seen for this multiple times in the ER. He was offered transfer for neurologic assessment at that time. He did not follow-up with neurologist as directed. Patient states he has not had these symptoms in over one month until today. (Shivam Hassan) - Related Data Home Medications Medication Instructions Recorded Confirmed No Known Home Medications 05/24/18 07/29/18 Allergies Allergy/AdvReac Type Severity Reaction Status Date / Time Fish Containing Products AdvReac Nausea Verified 07/29/18 15:03 [Fish] Review of Systems ROS Other: All systems not noted in ROS Statement are negative. <Shivam Hassan - Last Filed: 07/29/18 17:06> ROS Other: All systems not noted in ROS Statement are negative. <Drew Medina - Last Filed: 07/29/18 19:42> ROS Statement: Those systems with pertinent positive or pertinent negative responses have been documented in the HPI. Past Medical History Past Medical History: Asthma Additional Past Medical History / Comment(s): Pt seen in ER 05/24/18 possible seizure/head injury. History of Any Multi-Drug Resistant Organisms: None Reported Past Surgical History: No Surgical Hx Reported Additional Past Surgical History / Comment(s): Surgery for undescended testicle as a teen. Past Anesthesia/Blood Transfusion Reactions: No Reported Reaction Past Psychological History: No Psychological Hx Reported Smoking Status: Never smoker Past Alcohol Use History: None Reported Past Drug Use History: None Reported - Past Family History Father Family Medical History: CVA/TIA Additional Family Medical History / Comment(s): Father had a CVA. He is Mother Family Medical History: Cancer Additional Family Medical History / Comment(s): Mother of ovarian cancer. <Shivam Hassan - Last Filed: 07/29/18 17:06> General Exam Limitations: no limitations General appearance: alert, in no apparent distress Head exam: Present: atraumatic, normocephalic, normal inspection Eye exam: Present: normal appearance, PERRL, EOMI. Absent: scleral icterus, conjunctival injection, periorbital swelling ENT exam: Present: normal exam, mucous membranes moist Neck exam: Present: normal inspection, full ROM. Absent: tenderness, meningismus, lymphadenopathy Respiratory exam: Present: normal lung sounds bilaterally. Absent: respiratory distress, wheezes, rales, rhonchi, stridor Cardiovascular Exam: Present: regular rate, normal rhythm, normal heart sounds. Absent: systolic murmur, diastolic murmur, rubs, gallop, clicks GI/Abdominal exam: Present: soft, normal bowel sounds. Absent: distended, tenderness (Nontender abdomen), guarding, rebound, rigid Neurological exam: Present: alert, oriented X3, CN II-XII intact Psychiatric exam: Present: normal affect, normal mood <Shivam Hassan - Last Filed: 07/29/18 17:06> Course <Shivam Hassan - Last Filed: 07/29/18 17:06> <Drew Medina - Last Filed: 07/29/18 19:42> Vital Signs 07/29/18 07/29/18 07/29/18 14:25 15:20 15:46 Temperature 97.6 F Pulse Rate 75 66 Pulse Rate [ 103 H Safety Tech ] Respiratory 18 20 Rate Blood Pressure 153/103 123/89 O2 Sat by Pulse 99 100 Oximetry 07/29/18 16:52 Temperature Pulse Rate 87 Pulse Rate [ Safety Tech ] Respiratory 16 Rate Blood Pressure 145/95 O2 Sat by Pulse 99 Oximetry - Reevaluation(s) Reevaluation #1: 07/29/18 17:07 Patient initially was not giving a good history and was answering all questions. However after evaluation patient is now admitting to chest pain that radiated to his right arm. He states pain is better at this time. (Shivam Hassan) EKG Findings - EKG Comments: EKG Findings:: Sinus bradycardia, ventricular rate 59, RI interval 162, QTc 413 <Shivam Hassan - Last Filed: 07/29/18 17:06> Medical Decision Making - Lab Data Result diagrams: 07/29/18 15:30 07/29/18 15:30 <Shivam Hassan - Last Filed: 07/29/18 17:06> - Lab Data Result diagrams: 07/29/18 15:30 07/29/18 15:30 - Radiology Data Radiology results: report reviewed (I did review the imaging and report no acute findings), image reviewed <Drew Medina - Last Filed: 07/29/18 19:42> - Medical Decision Making I did reevaluate patient several occasions after he was endorsed to me. He still having nausea and vomiting. We did discuss the chest pain reported he denies at this time any chest pain he does admit he is been under a lot of stress at work recently however. No family history of heart disease at early age he does admit to smoking marijuana but does not smoke cigarettes. No known cardiovascular disease. He will be admitted I did discuss the case with Dr. Forbes. (Drew Medina) - Lab Data Lab Results 07/29/18 07/29/18 07/29/18 Range/Units 15:30 15:30 15:30 WBC 6.5 (3.8-10.6) k/uL RBC 5.26 (4.30-5.90) m/uL Hgb 16.5 (13.0-17.5) gm/dL Hct 49.3 (39.0-53.0) % MCV 93.7 (80.0-100.0) fL MCH 31.3 (25.0-35.0) pg MCHC 33.4 (31.0-37.0) g/dL RDW 13.6 (11.5-15.5) % Plt Count 286 (150-450) k/uL Neutrophils % 84 % Lymphocytes % 10 % Monocytes % 2 % Eosinophils % 3 % Basophils % 0 % Neutrophils # 5.5 (1.3-7.7) k/uL Lymphocytes # 0.6 L (1.0-4.8) k/uL Monocytes # 0.2 (0-1.0) k/uL Eosinophils # 0.2 (0-0.7) k/uL Basophils # 0.0 (0-0.2) k/uL PT 10.6 (9.0-12.0) sec INR 1.0 (<1.2) APTT 24.3 (22.0-30.0) sec Sodium 143 (137-145) mmol/L Potassium 4.8 (3.5-5.1) mmol/L Chloride 108 H (98-107) mmol/L Carbon Dioxide 24 (22-30) mmol/L Anion Gap 11 mmol/L BUN 8 L (9-20) mg/dL Creatinine 1.23 (0.66-1.25) mg/dL Est GFR (CKD-EPI)AfAm 87 (>60 ml/min/1.73 sqM) Est GFR (CKD-EPI)NonAf 76 (>60 ml/min/1.73 sqM) Glucose 108 H (74-99) mg/dL POC Glucose (mg/dL) (75-99) mg/dL POC Glu Sales Support Representative ID Calcium 10.9 H (8.4-10.2) mg/dL Phosphorus 1.4 L (2.5-4.5) mg/dL Magnesium (1.6-2.3) mg/dL Total Bilirubin 0.9 (0.2-1.3) mg/dL AST 21 (17-59) U/L ALT 30 (21-72) U/L Alkaline Phosphatase 84 (38-126) U/L Troponin I (0.000-0.034) ng/mL Total Protein 9.0 H (6.3-8.2) g/dL Albumin 5.1 H (3.5-5.0) g/dL Amylase (30-110) U/L Lipase (23-300) U/L Urine Color Urine Appearance (Clear) Urine pH (5.0-8.0) Ur Specific [place] (1.001-1.035) Urine Protein (Negative) Urine Glucose (UA) (Negative) Urine Ketones (Negative) Urine Blood (Negative) Urine Nitrite (Negative) Urine Bilirubin (Negative) Urine Urobilinogen (<2.0) mg/dL Ur Leukocyte Esterase (Negative) Urine WBC (0-5) /hpf Hyaline Casts (0-2) /lpf Urine Mucus (None) /hpf Urine Opiates Screen (NotDetected) Ur Oxycodone Screen (NotDetected) Urine Methadone Screen (NotDetected) Ur Propoxyphene Screen (NotDetected) Ur Barbiturates Screen (NotDetected) U Tricyclic Antidepress (NotDetected) Ur Phencyclidine Scrn (NotDetected) Ur Amphetamines Screen (NotDetected) U Methamphetamines Scrn (NotDetected) U Benzodiazepines Scrn (NotDetected) Urine Cocaine Screen (NotDetected) U Marijuana (THC) Screen (NotDetected) 07/29/18 07/29/18 07/29/18 Range/Units 15:30 15:30 15:33 WBC (3.8-10.6) k/uL RBC (4.30-5.90) m/uL Hgb (13.0-17.5) gm/dL Hct (39.0-53.0) % MCV (80.0-100.0) fL MCH (25.0-35.0) pg MCHC (31.0-37.0) g/dL RDW (11.5-15.5) % Plt Count (150-450) k/uL Neutrophils % % Lymphocytes % % Monocytes % % Eosinophils % % Basophils % % Neutrophils # (1.3-7.7) k/uL Lymphocytes # (1.0-4.8) k/uL Monocytes # (0-1.0) k/uL Eosinophils # (0-0.7) k/uL Basophils # (0-0.2) k/uL PT (9.0-12.0) sec INR (<1.2) APTT (22.0-30.0) sec Sodium (137-145) mmol/L Potassium (3.5-5.1) mmol/L Chloride (98-107) mmol/L Carbon Dioxide (22-30) mmol/L Anion Gap mmol/L BUN (9-20) mg/dL Creatinine (0.66-1.25) mg/dL Est GFR (CKD-EPI)AfAm (>60 ml/min/1.73 sqM) Est GFR (CKD-EPI)NonAf (>60 ml/min/1.73 sqM) Glucose (74-99) mg/dL POC Glucose (mg/dL) 108 H (75-99) mg/dL POC Glu Sales Support Representative ID Jack Rice Calcium (8.4-10.2) mg/dL Phosphorus (2.5-4.5) mg/dL Magnesium 1.7 (1.6-2.3) mg/dL Total Bilirubin (0.2-1.3) mg/dL AST (17-59) U/L ALT (21-72) U/L Alkaline Phosphatase (38-126) U/L Troponin I <0.012 (0.000-0.034) ng/mL Total Protein (6.3-8.2) g/dL Albumin (3.5-5.0) g/dL Amylase 76 (30-110) U/L Lipase 166 (23-300) U/L Urine Color Urine Appearance (Clear) Urine pH (5.0-8.0) Ur Specific [place] (1.001-1.035) Urine Protein (Negative) Urine Glucose (UA) (Negative) Urine Ketones (Negative) Urine Blood (Negative) Urine Nitrite (Negative) Urine Bilirubin (Negative) Urine Urobilinogen (<2.0) mg/dL Ur Leukocyte Esterase (Negative) Urine WBC (0-5) /hpf Hyaline Casts (0-2) /lpf Urine Mucus (None) /hpf Urine Opiates Screen (NotDetected) Ur Oxycodone Screen (NotDetected) Urine Methadone Screen (NotDetected) Ur Propoxyphene Screen (NotDetected) Ur Barbiturates Screen (NotDetected) U Tricyclic Antidepress (NotDetected) Ur Phencyclidine Scrn (NotDetected) Ur Amphetamines Screen (NotDetected) U Methamphetamines Scrn (NotDetected) U Benzodiazepines Scrn (NotDetected) Urine Cocaine Screen (NotDetected) U Marijuana (THC) Screen (NotDetected) 07/29/18 Range/Units 17:09 WBC (3.8-10.6) k/uL RBC (4.30-5.90) m/uL Hgb (13.0-17.5) gm/dL Hct (39.0-53.0) % MCV (80.0-100.0) fL MCH (25.0-35.0) pg MCHC (31.0-37.0) g/dL RDW (11.5-15.5) % Plt Count (150-450) k/uL Neutrophils % % Lymphocytes % % Monocytes % % Eosinophils % % Basophils % % Neutrophils # (1.3-7.7) k/uL Lymphocytes # (1.0-4.8) k/uL Monocytes # (0-1.0) k/uL Eosinophils # (0-0.7) k/uL Basophils # (0-0.2) k/uL PT (9.0-12.0) sec INR (<1.2) APTT (22.0-30.0) sec Sodium (137-145) mmol/L Potassium (3.5-5.1) mmol/L Chloride (98-107) mmol/L Carbon Dioxide (22-30) mmol/L Anion Gap mmol/L BUN (9-20) mg/dL Creatinine (0.66-1.25) mg/dL Est GFR (CKD-EPI)AfAm (>60 ml/min/1.73 sqM) Est GFR (CKD-EPI)NonAf (>60 ml/min/1.73 sqM) Glucose (74-99) mg/dL POC Glucose (mg/dL) (75-99) mg/dL POC Glu Sales Support Representative ID Calcium (8.4-10.2) mg/dL Phosphorus (2.5-4.5) mg/dL Magnesium (1.6-2.3) mg/dL Total Bilirubin (0.2-1.3) mg/dL AST (17-59) U/L ALT (21-72) U/L Alkaline Phosphatase (38-126) U/L Troponin I (0.000-0.034) ng/mL Total Protein (6.3-8.2) g/dL Albumin (3.5-5.0) g/dL Amylase (30-110) U/L Lipase (23-300) U/L Urine Color Yellow Urine Appearance Clear (Clear) Urine pH 8.5 H (5.0-8.0) Ur Specific [place] 1.015 (1.001-1.035) Urine Protein 2+ H (Negative) Urine Glucose (UA) Negative (Negative) Urine Ketones 2+ H (Negative) Urine Blood Negative (Negative) Urine Nitrite Negative (Negative) Urine Bilirubin Negative (Negative) Urine Urobilinogen <2.0 (<2.0) mg/dL Ur Leukocyte Esterase Negative (Negative) Urine WBC <1 (0-5) /hpf Hyaline Casts 1 (0-2) /lpf Urine Mucus Rare H (None) /hpf Urine Opiates Screen Not Detected (NotDetected) Ur Oxycodone Screen Not Detected (NotDetected) Urine Methadone Screen Not Detected (NotDetected) Ur Propoxyphene Screen Not Detected (NotDetected) Ur Barbiturates Screen Not Detected (NotDetected) U Tricyclic Antidepress Not Detected (NotDetected) Ur Phencyclidine Scrn Not Detected (NotDetected) Ur Amphetamines Screen Not Detected (NotDetected) U Methamphetamines Scrn Not Detected (NotDetected) U Benzodiazepines Scrn Not Detected (NotDetected) Urine Cocaine Screen Not Detected (NotDetected) U Marijuana (THC) Screen Detected H (NotDetected) Disposition <Shivam Hassan - Last Filed: 07/29/18 17:06> <Drew Medina - Last Filed: 07/29/18 19:42> Clinical Impression: Intractable vomiting with nausea, Atypical chest pain Disposition: ADMITTED IP TO THIS [facility] Condition: Stable Referrals: None,Stated [Primary Care Provider] - 1-2 days
[2018-07-29] MEDS ORDERED: SODIUM CHLORIDE 0.9% 1,000 ML IV STA ×2 (15:21→17:31)
[2018-07-29] MEDS ORDERED: ONDANSETRON 4 MG/2 ML VIAL IVP STA (15:21)
[2018-07-29 15:36] LABS: Glucose,Whole Blood 108 mg/dL (75-99)
[2018-07-29] MEDS ORDERED: LORazepam 2 MG/ML INJ IV STA (15:42)
[2018-07-29 15:50] LABS: Basophils % (A) 0 %; Eosinophils # (A) 0.2 k/uL (0-0.7); Eosinophils % (A) 3 %; HCT 49.3 % (39.0-53.0); HGB 16.5 gm/dL (13.0-17.5); Lymphocytes # (A) 0.6 k/uL (1.0-4.8); Lymphocytes % (A) 10 %; MCH 31.3 pg (25.0-35.0); MCHC 33.4 g/dL (31.0-37.0); MCV 93.7 fL (80.0-100.0); Mean Platelet Volume 8.3; Monocytes # (A) 0.2 k/uL (0-1.0); Monocytes % (A) 2 %; Neutrophils # (A) 5.5 k/uL (1.3-7.7); Neutrophils % (A) 84 %; Platelet Count 286 k/uL (150-450); RBC 5.26 m/uL (4.30-5.90); RDW 13.6 % (11.5-15.5); WBC 6.5 k/uL (3.8-10.6)
[2018-07-29 15:58] LABS: Albumin 5.1 g/dL (3.5-5.0); Calcium 10.9 mg/dL (8.4-10.2); Phosphorus 1.4 mg/dL (2.5-4.5); Potassium 4.8 mmol/L (3.5-5.1); Total Bilirubin 0.9 mg/dL (0.2-1.3)
[2018-07-29 16:06] LABS: Partial Thromboplastin Time 24.3 sec (22.0-30.0); Prothrombin Time 10.6 sec (9.0-12.0)
--- NOTE | 2018-07-29 16:27 | XR ---
EXAMINATION TYPE: XR chest 2V DATE OF EXAM: 07/29/2018 COMPARISON: None INDICATION: Weakness nausea vomiting diarrhea history of asthma TECHNIQUE: Frontal and lateral views of the chest are obtained. FINDINGS: The heart size is normal. The pulmonary vasculature is normal. The lungs are clear. IMPRESSION: 1. No acute pulmonary process.
--- NOTE | 2018-07-29 16:29 | XR ---
EXAMINATION TYPE: XR abdomen 2V DATE OF EXAM: 07/29/2018 COMPARISON: None INDICATION: Weakness nausea vomiting diarrhea dizziness history of asthma TECHNIQUE: Abdomen is examined in the supine and upright view FINDINGS: Right Little bowel gas is present. Small amount appears to be in the rectal region. No mass effect is evident. Psoas margins are normal. No organomegaly is present. No free air is evident. No suspicious differential air-fluid levels are present. IMPRESSION: 1. Unremarkable Abdomen
[2018-07-29] MEDS ORDERED: ASPIRIN 81 MG PO STA (16:46)
[2018-07-29] MEDS ORDERED: KETOROLAC 30 MG/ML 1 ML VIAL IVP STA (16:56)
[2018-07-29 17:25] LABS: Magnesium 1.7 mg/dL (1.6-2.3)
[2018-07-29 17:27] LABS: Appearance,Urine Clear (Clear); Bilirubin,Urine Negative (Negative); Blood,Urine Negative (Negative); Color,Urine Yellow; Glucose,Urine (UA) Negative (Negative); Hyaline Casts,Urine 1 /lpf (0-2); Ketones,Urine 2+ (Negative); Leukocyte Esterase,Urine Negative (Negative); Mucus,Urine Rare /hpf; Nitrite,Urine Negative (Negative); PH, Urine 8.5 (5.0-8.0); Protein,Urine 2+ (Negative); Specific Gravity,Urine 1.015 (1.001-1.035); Urobilinogen,Urine <2.0 mg/dL (<2.0); WBC,Urine <1 /hpf (0-5)
[2018-07-29] MEDS ORDERED: MAGNESIUM SULFATE-D5W PMX 1 GM in DEXTROSE/WATER 1 100ML.BAG IVPB ONE (17:33)
[2018-07-29 17:38] LABS: Amphetamine Screen,Urine Not Detected (NotDetected); Barbiturate Screen,Urine Not Detected (NotDetected); Benzodiazepines Screen,Urine Not Detected (NotDetected); Cocaine Screen,Urine Not Detected (NotDetected); Methadone Screen, Urine Not Detected (NotDetected); Opiate Screen,Urine Not Detected (NotDetected); Oxycodone Screen, Urine Not Detected (NotDetected); Phencyclidine Screen,Urine Not Detected (NotDetected); Tricyclic Antidepressant,Urine Not Detected (NotDetected); Urn Cannabinoid Scrn Detected (NotDetected)
[2018-07-29] MEDS ORDERED: NALOXONE 0.4 MG/ML 1 ML VIAL IV PRN (19:43)
[2018-07-29] MEDS ORDERED: ONDANSETRON 4 MG/2 ML VIAL IVP PRN (19:43)
[2018-07-29] MEDS ORDERED: SODIUM CHLORIDE 0.9% 1,000 ML IV SCH (19:45)
[2018-07-29 21:32] VITALS: BMI 26.6
[2018-07-29] MEDS ORDERED: ACETAMINOPHEN TAB 500 MG TAB PO PRN (23:42)
[2018-07-29] MEDS ORDERED: ALPRAZolam 0.25 MG TAB PO PRN (23:42)
[2018-07-29] MEDS ORDERED: TEMAZEPAM 15 MG CAP PO PRN (23:42)
[2018-07-29] MEDS ORDERED: HYDROcodone/APAP 5-325MG 1 EACH TAB PO PRN (23:42)
[2018-07-30 00:28] VITALS: RESP 18
[2018-07-30] MEDS: PANTOPRAZOLE 40 MG/10 ML VIAL IV SCH ×2 (01:06→09:58)
--- NOTE | 2018-07-30 07:22 | HP ---
HISTORY AND PHYSICAL DATE OF SERVICE: 07/29/2018 CHIEF COMPLAINT: Nausea, vomiting, and chest pain. HISTORY OF PRESENT ILLNESS: This is a 37-year-old gentleman with a past medical history of multiple medical problems, history of asthma, history of seizures, possible head injury, being followed by no primary physician in the outpatient setting, also previously admitted here but subsequently patient discharged and was recommended recurrent followup. Currently, the patient is complaining of nausea, vomiting this morning and with multiple attacks and patient felt weak and patient had history of chest pain subsequently patient came to [facility] and admitted for further evaluation and treatment. There is no history of fever or rigors. No history of headache, loss of consciousness, seizures at this time. PAST MEDICAL HISTORY: History of asthma, history of seizure disorder. MEDICATIONS: Prior to admission include none. ALLERGIES: FISH-CONTAINING PRODUCTS. FAMILY HISTORY: History of CVA, TIA in the family. SOCIAL HISTORY: History of smoking. No history of alcohol intake. REVIEW OF SYSTEMS: ENT: No diminished hearing, no diminished vision. CARDIOVASCULAR: As mentioned earlier. GI: As mentioned earlier. : No dysuria. NERVOUS SYSTEM: No weakness. ALLERGY/IMMUNOLOGY: As mentioned earlier. MUSCULOSKELETAL: As mentioned earlier. HEMATOLOGY/ONCOLOGY: No history of anemia. ENDOCRINE: No history of diabetes or hypothyroidism. CONSTITUTIONAL: As mentioned earlier. DERMATOLOGY: Negative. RHEUMATOLOGY: Negative. PSYCHIATRY: As mentioned earlier. PHYSICAL EXAMINATION: Alert and oriented x3. Pulse is 91, blood pressure 130/75, respiration 16, temperature 98.4, pulse ox 100% on room air. HEENT: Conjunctivae are normal. NECK: No jugular venous distension. CARDIOVASCULAR: S1, S2 muffled. RESPIRATORY: Breath sounds diminished in the bases, no rhonchi, no crackles. ABDOMEN: Soft, no tender. No mass palpable. LEGS: No edema, no swelling. NERVOUS SYSTEM: Higher functions as mentioned, moves all 4 limbs, no focal deficits. LYMPHATICS: No lymph node enlargement in the neck or axillae. SKIN: No ulcer, rash, bleeding. JOINTS: No acute arthrology. LABS: CBC within normal limits. Otherwise, sodium 143, potassium 4.8, glucose 108, calcium is 10.9, albumin is 5.1. UA noted. Tox screen is THC. Otherwise, the EKG shows sinus bradycardia with ST changes and abdominal x-ray unremarkable. ASSESSMENT: 1. Chest pain, possible unstable angina, possibly gastroesophageal reflux disease. 2. Rule out peptic ulcer disease. 3. Vomiting, possible acute gastritis. 4. History of THC. 5. History of asthma. 6. History of seizure disorder. RECOMMENDATION: In this 37-year-old gentleman who presented with multiple complex medical issues, at this time will monitor the patient closely, continue with the current management and symptomatic treatment. Patient had features of dehydration. Continue with IV fluids. Rule out myocardial infarction, proton-pump inhibitors. Otherwise, I would also recommend Cardiology consultation. Continue to monitor. The prognosis guarded because of multiple complex medical issues. Further recommendations to follow. GI is also consulted because of the persistent upper GI symptoms, rule out the possibility of peptic ulcer disease. Further recommendations to follow. MMODL / IJN: [id number] /
[2018-07-30 08:21] VITALS: PULSE 85
[2018-07-30 08:38] LABS: Cholesterol 185 mg/dL (<200); HDL Cholesterol 51 mg/dL (40-60); LDL Cholesterol,Calculated 120 mg/dL (0-99); Triglycerides 69 mg/dL (<150)
--- NOTE | 2018-07-30 11:06 | P.CRDCN ---
History of Present Illness History of present illness: This is a pleasant 37-year-old -Swiss male past medical history significant for asthma and regular marijuana use. He denies history of hypertension, dyslipidemia, diabetes mellitus or coronary artery disease. He has never seen a bottle gauger for any reason. We've been asked to see him in consultation for symptoms of chest discomfort. He presented to the hospital yesterday after waking up feeling generally unwell with symptoms of feeling very lightheaded and he became acutely nauseated started vomiting throughout the course of the day yesterday he vomited 6-8 times. He was having mild abdominal discomfort. He denies ever having had any symptoms of chest discomfort. There is no pain in his back, arm, neck or jaw. He denies symptoms of shortness of breath, palpitations or diaphoresis. He is seen and examined resting comfortably in bed in no acute distress. He states he has been smoking much more marijuana recently due to increased stressors in his life. He did smoke a significant amount of marijuana Monday night. EKG reveals sinus mechanism with nonspecific baseline ST abnormalities noted on EKG. Compared to old EKGs assessment consistent for his previous 3 EKG since coming to the hospital in May and June. Chest x-ray negative for an acute cardiopulmonary process. Laboratory data reviewed, WBC 6.5, hemoglobin 16.5, platelets 286, sodium 143, potassium 4.8, creatinine 1.23, phosphorus 1.4, magnesium 1.7, cardiac enzymes negative 2, LDL 51 and HDL 76. He takes no daily cardiac medications. At the time of my exam: CONSTITUTIONAL: Denies fever. Denies chills. EYES: Denies blurred vision. Denies vision changes. Denies eye pain. EARS, NOSE, MOUTH & THROAT: Denies headache. Denies sore throat. Denies ear pain. CARDIOVASCULAR: Denies chest pain. Denies shortness of breath. Denies orthopnea. Denies PND. Denies palpitations. RESPIRATORY: Denies cough. GASTROINTESTINAL: Denies abdominal pain. Denies diarrhea. Denies constipation. Denies nausea. Denies vomiting. MUSCULOSKELETAL: Denies myalgias. INTEGUMENTARY: Denies pruitis. Denies rash. NEUROLOGIC: Denies numbness. Denies tingling. Denies weakness. PSYCHIATRIC: Denies anxiety. Denies depression. ENDOCRINE: Denies fatigue. Denies weight change. Denies polydipsia. Denies polyurina. GENITOURINARY: Denies burning, hematuria or urgency with micturation. HEMATOLOGIC: Denies history of anemia. Denies bleeding. Blood pressure 156/83 heart rate 88 afebrile maintaining oxygen saturation on room air GENERAL: This is a 37-year-old -Swiss male in no apparent distress at the time of my examination. HEENT: Head is atraumatic, normocephalic. Pupils are equal, round. Sclerae anicteric. Conjunctivae are clear. Mucous membranes of the mouth are moist. Neck is supple. There is no jugular venous distention. No carotid bruit is heard. LUNGS: Clear to auscultation no wheezes, rales or rhonchi. No chest wall tenderness is noted on palpation or with deep breathing. HEART: Regular rate and rhythm without murmurs, rubs or gallops. S1 and S2 heard. ABDOMEN: Soft, nontender. Bowel sounds are heard. No organomegaly noted. EXTREMITIES: No evidence of peripheral edema and no calf tenderness noted. VASCULAR: Radial and dorsalis pedis pulses palpated, no evidence of clubbing. NEUROLOGIC: Patient is awake, alert and oriented x3. ASSESSMENT Symptoms of nausea, vomiting and dizziness. No symptoms of angina, shortness of breath or any chest pain whatsoever. An acute coronary event has been ruled out. Regular marijuana use PLAN An acute coronary event has been ruled out. Obtain 2-D echocardiogram and Doppler study to assess cardiac structure and function. Due to his baseline EKG abnormalities recommend proceeding with stress echocardiogram to assess for stress-induced cardiac ischemia. Stress test is normal he is stable from a cardiac perspective. Cessation of marijuana use has been highly recommended. Thank you kindly for this consultation. Nurse Practitioner note has been reviewed, I agree with a documented findings and plan of care. Patient was seen and examined. Past Medical History Past Medical History: Asthma Additional Past Medical History / Comment(s): Pt seen in ER 05/24/18 possible seizure/head injury - never followed up with neurp History of Any Multi-Drug Resistant Organisms: None Reported Past Surgical History: No Surgical Hx Reported Additional Past Surgical History / Comment(s): 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 Past Anesthesia/Blood Transfusion Reactions: No Reported Reaction Past Psychological History: No Psychological Hx Reported Additional Psychological History / Comment(s): Pt resides with his spouse and their 4 children. He is independent. Smoking Status: Never smoker Past Alcohol Use History: None Reported Past Drug Use History: None Reported - Past Family History Father Family Medical History: CVA/TIA Additional Family Medical History / Comment(s): Father had a CVA. He is Mother Family Medical History: Cancer Additional Family Medical History / Comment(s): Mother of ovarian cancer. Medications and Allergies Home Medications Medication Instructions Recorded Confirmed Type No Known Home Medications 05/24/18 07/29/18 History Allergies Allergy/AdvReac Type Severity Reaction Status Date / Time Fish Containing Products AdvReac Nausea Verified 07/29/18 15:03 [Fish] Physical Exam Vitals: Vital Signs Temp Pulse Pulse Pulse Resp BP BP 07/30/18 07:44 98.6 F 80 18 156/83 07/30/18 03:32 98.9 F 85 18 136/74 07/30/18 03:27 18 07/30/18 00:00 99 F 94 18 115/74 07/29/18 22:50 18 07/29/18 20:40 98.5 F 91 16 136/74 07/29/18 20:20 98.0 F 90 15 130/76 07/29/18 20:10 93 20 130/76 07/29/18 20:00 94 18 124/77 07/29/18 19:50 94 15 124/77 07/29/18 19:40 96 11 L 124/77 07/29/18 19:30 98 15 127/74 07/29/18 19:20 94 19 127/74 07/29/18 19:10 98 19 127/74 07/29/18 19:00 93 15 120/75 07/29/18 18:50 73 17 120/75 07/29/18 18:40 91 18 120/75 07/29/18 18:30 91 13 133/81 07/29/18 18:21 72 17 133/81 07/29/18 18:10 91 16 133/81 07/29/18 18:00 66 16 137/99 07/29/18 17:50 101 H 16 07/29/18 17:40 83 14 137/99 07/29/18 17:30 81 17 139/71 07/29/18 17:20 90 16 139/71 07/29/18 17:10 90 20 139/71 07/29/18 17:00 75 15 145/95 07/29/18 16:52 87 16 145/95 07/29/18 16:50 80 17 156/102 07/29/18 16:40 66 14 156/102 07/29/18 16:30 79 16 161/102 07/29/18 16:20 161/102 07/29/18 16:10 78 13 161/102 07/29/18 16:00 87 19 123/89 07/29/18 15:50 59 L 15 123/89 07/29/18 15:46 66 20 123/89 07/29/18 15:40 64 19 07/29/18 15:20 103 H 07/29/18 14:25 97.6 F 75 18 153/103 Pulse Ox 07/30/18 07:44 99 07/30/18 03:32 100 07/30/18 03:27 07/30/18 00:00 98 07/29/18 22:50 07/29/18 20:40 100 07/29/18 20:20 98 07/29/18 20:10 98 07/29/18 20:00 98 07/29/18 19:50 99 07/29/18 19:40 99 07/29/18 19:30 99 07/29/18 19:20 98 07/29/18 19:10 96 07/29/18 19:00 85 L 07/29/18 18:50 99 07/29/18 18:40 100 07/29/18 18:30 100 07/29/18 18:21 97 07/29/18 18:10 99 07/29/18 18:00 97 07/29/18 17:50 100 07/29/18 17:40 96 07/29/18 17:30 98 07/29/18 17:20 99 07/29/18 17:10 100 07/29/18 17:00 100 07/29/18 16:52 99 07/29/18 16:50 97 07/29/18 16:40 96 07/29/18 16:30 100 07/29/18 16:20 07/29/18 16:10 96 07/29/18 16:00 97 07/29/18 15:50 100 07/29/18 15:46 100 07/29/18 15:40 07/29/18 15:20 07/29/18 14:25 99 Intake and Output 07/29/18 07/30/18 07/30/18 22:59 06:59 14:59 Other: Voiding Method Toilet Toilet # Voids 2 2 Results 07/29/18 15:30 07/29/18 15:30 Cardiac Enzymes 07/29/18 07/29/18 07/29/18 Range/Units 15:30 15:30 22:34 AST 21 (17-59) U/L Troponin I <0.012 <0.012 (0.000-0.034) ng/mL Coagulation 07/29/18 Range/Units 15:30 PT 10.6 (9.0-12.0) sec APTT 24.3 (22.0-30.0) sec CBC 07/29/18 Range/Units 15:30 WBC 6.5 (3.8-10.6) k/uL RBC 5.26 (4.30-5.90) m/uL Hgb 16.5 (13.0-17.5) gm/dL Hct 49.3 (39.0-53.0) % Plt Count 286 (150-450) k/uL Comprehensive Metabolic Panel 07/29/18 Range/Units 15:30 Sodium 143 (137-145) mmol/L Potassium 4.8 (3.5-5.1) mmol/L Chloride 108 H (98-107) mmol/L Carbon Dioxide 24 (22-30) mmol/L BUN 8 L (9-20) mg/dL Creatinine 1.23 (0.66-1.25) mg/dL Glucose 108 H (74-99) mg/dL Calcium 10.9 H (8.4-10.2) mg/dL AST 21 (17-59) U/L ALT 30 (21-72) U/L Alkaline Phosphatase 84 (38-126) U/L Total Protein 9.0 H (6.3-8.2) g/dL Albumin 5.1 H (3.5-5.0) g/dL Current Medications Generic Name Dose Route Start Last Admin Trade Name Freq PRN Reason Stop Dose Admin Acetaminophen 500 mg 07/29/18 23:42 Tylenol Tab PO Q6HR PRN Fever and/ or Pain Hydrocodone Bitart/Acetaminophen 1 each 07/29/18 23:42 [place] 5-325 PO Q6HR PRN Pain Alprazolam 0.25 mg 07/29/18 23:42 Xanax PO TID PRN Anxiety Sodium Chloride 1,000 mls @ 125 mls/hr 07/29/18 19:45 07/29/18 20:12 Saline 0.9% IV 125 mls/hr .Q8H PABLITO Administration Naloxone HCl 0.2 mg 07/29/18 19:43 Narcan IV Q2M PRN Opioid Reversal Ondansetron HCl 4 mg 07/29/18 19:43 Zofran IVP Q8HR PRN Nausea And Vomiting Pantoprazole Sodium 40 mg 07/29/18 21:00 07/30/18 01:06 Protonix IV Not Given BID PABLITO Temazepam 15 mg 07/29/18 23:42 Restoril PO HS PRN Insomnia Intake and Output 07/29/18 07/30/18 07/30/18 22:59 06:59 14:59 Other: Voiding Method Toilet Toilet # Voids 2 2 07/29/18 15:30 07/29/18 15:30
[2018-07-30 12:18] VITALS: BP 141/84; TEMP 98.8
--- NOTE | 2018-07-30 13:16 | ECHOF ---
Referral Reason:cp MEASUREMENTS -------- HEIGHT: 172.7 cm WEIGHT: 79.4 kg BP: RVIDd: 2.9 cm (< 3.3) IVSd: 1.4 cm (0.6 - 1.1) LVIDd: 4.1 cm (3.9 - 5.3) LVPWd: 1.2 cm (0.6 - 1.1) IVSs: 1.7 cm LVIDs: 3.1 cm LVPWs: 1.4 cm LA Diam: 3.1 cm (2.7 - 3.8) LAESV Index (A-L): 23.70 ml/m Ao Diam: 2.4 cm (2.0 - 3.7) AV Cusp: 1.8 cm (1.5 - 2.6) LA Diam: 3.7 cm (2.7 - 3.8) MV EXCURSION: 16.703 mm (> 18.000) MV EF SLOPE: 105 mm/s (70 - 150) EPSS: 0.5 cm MV E Chucho: 0.98 m/s MV DecT: 152 ms MV A Chucho: 0.80 m/s MV E/A Ratio: 1.23 RAP: 5.00 mmHg RVSP: 26.20 mmHg FINDINGS -------- Sinus rhythm. This was a technically good study. The left ventricular size is normal. There is moderate concentric left ventricular hypertrophy. O verall left ventricular systolic function is normal with, an EF between 55 - 60 %. The right ventricle is normal in size. The left atrial size is normal. The right atrial size is normal. The aortic valve is trileaflet, and appears structurally normal. No aortic stenosis or regurgitation. Mild mitral regurgitation is present. Mild tricuspid regurgitation present. There is no evidence of pulmonary hypertension. The right v entricular systolic pressure, as measured by Doppler, is 26.20mmHg. There is no pulmonic regurgitation present. There is no pericardial effusion. CONCLUSIONS -------- 1. The left ventricular size is normal. 2. There is moderate concentric left ventricular hypertrophy. 3. Overall left ventricular systolic function is normal with, an EF between 55 - 60 %. 4. The right ventricle is normal in size. 5. The left atrial size is normal. 6. The right atrial size is normal. 7. The aortic valve is trileaflet, and appears structurally normal. No aortic stenosis or regurgitati on. 8. Mild mitral regurgitation is present. 9. Mild tricuspid regurgitation present. 10. There is no evidence of pulmonary hypertension. 11. The right ventricular systolic pressure, as measured by Doppler, is 26.20mmHg. 12. There is no pulmonic regurgitation present. 13. There is no pericardial effusion. CHIEF ENGINEER'S HELPER: Roxie Lester RDCS
--- NOTE | 2018-07-30 13:39 | ECHOS ---
STRESS ECHOCARDIOGRAM DATE OF SERVICE: 07/30/2018 INDICATIONS: Chest pain. MEDICATIONS: BASELINE HEART RATE: 86 BASELINE BLOOD PRESSURE: 168/74 MAXIMUM HEART RATE: 175 MAXIMUM BLOOD PRESSURE: 202/54 85% MPHR: 156 100% MPHR: 184 METS: 11.7 MAXIMUM STAGE REACHED: IV TOTAL EXERCISE TIME: 10 minutes CLINICAL INFORMATION: STRESS DATA: Pretesting physical examination showed a heart rate of 86, pressure is 160/74 mmHg. Baseline EKG showed sinus mechanism. The patient exercised on the treadmill according to Miles protocol for a total of 10 minutes and achieved 11.7 METs. Max heart rate was 175, which is about 96% of maximum predicted heart rate. Maximum blood pressure was 202/54 mmHg. Clinically the patient did not have any symptoms and the EKG did not show any significant ST or T wave abnormalities concerning for ischemia. ECHOCARDIOGRAM IMAGES: On echocardiogram images from parasternal long axis view, parasternal short axis view, apical 4 chamber and apical 2 chamber view were obtained as the baseline images, at the peak of the heart rate as well as on recovery and the echocardiogram images showed good augmentation in the left ventricular systolic function without any evidence of wall motion abnormalities concerning for ischemia. CONCLUSION: 1. Excellent exercise tolerance. 2. Normal EKG in response to exercise. 3. Normal echocardiogram in response to exercise. MMODL / IJN: [id number] /
[2018-07-30] MEDS ORDERED: LIDOCAINE 1% INJ 10MG/ML (20 ML MDV) ONE (13:50)
[2018-07-30] MEDS ORDERED: PROPOFOL 10 MG/ML 20 ML VIAL IV ONE (13:50)
--- NOTE | 2018-07-30 13:58 | P.CONS ---
History of Present Illness - Reason for Consult Consult date: 07/30/18 Abdominal pain, nausea and vomiting Requesting physician: Heather Forbes - Chief Complaint Nausea and vomiting - History of Present Illness The patient is a pleasant 37-year-old male with a medical history significant for asthma and seizures disorder who presented to the hospital due to lightheadedness and nausea. The patient reports 3 episodes of associated vomiting, described as nonbloody, nonbilious. He reports he tried to take water and that he brought it back up. He denies any fevers or chills. He does report dull epigastric abdominal pain that has been going on for months now. He reports that the pain will occur intermittently and can be severe in intensity. He denies any NSAID use. He is not on any PPI therapy or NSAID therapy. No prior EGD or colonoscopy reported. Review of Systems REVIEW OF SYSTEMS: CONSTITUTIONAL: Denies any fevers, chills, weight change or fatigue. CARDIOVASCULAR: Denies any chest pain, palpitations high or low blood pressures RESPIRATORY: Denies any shortness of breath, hemoptysis or cough. GENITOURINARY: No dysuria or hematuria. MUSCULOSKELETAL: No weakness reported. SKIN: Denies any new rashes or lesions, jaundice or pallor. PSYCHIATRIC: Denies any depression or anxiety. NEUROLOGY: Denies headache, denies any new focal deficits, patient reports feeling lightheaded. EARS/NOSE/THROAT: No recent hearing change, congestion, nasal discharge or sore throat. EYES: No pain in eyes, discharge or change in vision. GASTROINTESTINAL: As per HPI. Past Medical History Past Medical History: Asthma Additional Past Medical History / Comment(s): Pt seen in ER 05/24/18 possible seizure/head injury - never followed up with neurp History of Any Multi-Drug Resistant Organisms: None Reported Past Surgical History: No Surgical Hx Reported Additional Past Surgical History / Comment(s): 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 Past Anesthesia/Blood Transfusion Reactions: No Reported Reaction Past Psychological History: No Psychological Hx Reported Additional Psychological History / Comment(s): Pt resides with his spouse and their 4 children. He is independent. Smoking Status: Never smoker Past Alcohol Use History: None Reported Past Drug Use History: None Reported - Past Family History Father Family Medical History: CVA/TIA Additional Family Medical History / Comment(s): Father had a CVA. He is Mother Family Medical History: Cancer Additional Family Medical History / Comment(s): Mother of ovarian cancer. Medications and Allergies Home Medications Medication Instructions Recorded Confirmed Type Pantoprazole Sodium [Protonix] 40 mg PO DAILY #30 tablet. 07/30/18 Rx Allergies Allergy/AdvReac Type Severity Reaction Status Date / Time Fish Containing Products AdvReac Nausea Verified 07/29/18 15:03 [Fish] Physical Exam Vitals: Vital Signs Temp Pulse Pulse Pulse Resp BP BP 07/30/18 12:00 98.8 F 85 18 141/84 07/30/18 08:00 85 80 18 07/30/18 07:44 98.6 F 80 18 07/30/18 03:32 98.9 F 85 18 07/30/18 03:27 18 07/30/18 00:00 99 F 94 18 07/29/18 22:50 18 07/29/18 20:40 98.5 F 91 16 07/29/18 20:20 98.0 F 90 15 130/76 07/29/18 20:10 93 20 130/76 07/29/18 20:00 94 18 124/77 07/29/18 19:50 94 15 124/77 07/29/18 19:40 96 11 L 124/77 07/29/18 19:30 98 15 127/74 07/29/18 19:20 94 19 127/74 07/29/18 19:10 98 19 127/74 07/29/18 19:00 93 15 120/75 07/29/18 18:50 73 17 120/75 07/29/18 18:40 91 18 120/75 07/29/18 18:30 91 13 133/81 07/29/18 18:21 72 17 133/81 07/29/18 18:10 91 16 133/81 07/29/18 18:00 66 16 137/99 07/29/18 17:50 101 H 16 07/29/18 17:40 83 14 137/99 07/29/18 17:30 81 17 139/71 07/29/18 17:20 90 16 139/71 07/29/18 17:10 90 20 139/71 07/29/18 17:00 75 15 145/95 07/29/18 16:52 87 16 145/95 07/29/18 16:50 80 17 156/102 07/29/18 16:40 66 14 156/102 07/29/18 16:30 79 16 161/102 07/29/18 16:20 161/102 07/29/18 16:10 78 13 161/102 07/29/18 16:00 87 19 123/89 07/29/18 15:50 59 L 15 123/89 07/29/18 15:46 66 20 123/89 07/29/18 15:40 64 19 07/29/18 15:20 103 H 07/29/18 14:25 97.6 F 75 18 153/103 BP Pulse Ox 07/30/18 12:00 100 07/30/18 08:00 07/30/18 07:44 156/83 99 07/30/18 03:32 136/74 100 07/30/18 03:27 07/30/18 00:00 115/74 98 07/29/18 22:50 07/29/18 20:40 136/74 100 07/29/18 20:20 98 07/29/18 20:10 98 07/29/18 20:00 98 07/29/18 19:50 99 07/29/18 19:40 99 07/29/18 19:30 99 07/29/18 19:20 98 07/29/18 19:10 96 07/29/18 19:00 85 L 07/29/18 18:50 99 07/29/18 18:40 100 07/29/18 18:30 100 07/29/18 18:21 97 07/29/18 18:10 99 07/29/18 18:00 97 07/29/18 17:50 100 07/29/18 17:40 96 07/29/18 17:30 98 07/29/18 17:20 99 07/29/18 17:10 100 07/29/18 17:00 100 07/29/18 16:52 99 07/29/18 16:50 97 07/29/18 16:40 96 07/29/18 16:30 100 07/29/18 16:20 07/29/18 16:10 96 07/29/18 16:00 97 07/29/18 15:50 100 07/29/18 15:46 100 07/29/18 15:40 02/24/19 15:20 07/29/18 14:25 99 Intake and Output 07/29/18 07/30/18 07/30/18 22:59 06:59 14:59 Other: Voiding Method Toilet Toilet Toilet # Voids 2 2 1 On physical examination, patient appears comfortable in no apparent distress. HEAD: Normocephalic, atraumatic. EYES: No scleral icterus. No conjunctival injection. MOUTH: No lesions, tongue midline. NECK: Trachea midline, no gross abnormalities. CHEST: Clear to auscultation with no wheezing or rhonchi appreciated. HEART: Regular rate and rhythm. ABDOMEN: Soft, obese. Bowel sounds are positive. No organomegaly. No guarding or rigidity. EXTREMITIES: No pedal edema. SKIN: No rashes, no jaundice. NEUROLOGIC: Alert and oriented x3. No focal deficits. Results CBC & Chem 7: 07/29/18 15:30 07/29/18 15:30 Labs: Abnormal Lab Results - Last 24 Hours (Table) 07/29/18 07/29/18 07/29/18 Range/Units 15:30 15:30 15:30 Lymphocytes # 0.6 L (1.0-4.8) k/uL Chloride 108 H (98-107) mmol/L BUN 8 L (9-20) mg/dL Glucose 108 H (74-99) mg/dL POC Glucose (mg/dL) (75-99) mg/dL Calcium 10.9 H (8.4-10.2) mg/dL Phosphorus 1.4 L (2.5-4.5) mg/dL Total Protein 9.0 H (6.3-8.2) g/dL Albumin 5.1 H (3.5-5.0) g/dL LDL Cholesterol, Calc 120 H (0-99) mg/dL Urine pH (5.0-8.0) Urine Protein (Negative) Urine Ketones (Negative) Urine Mucus (None) /hpf U Marijuana (THC) Screen (NotDetected) 07/29/18 07/29/18 Range/Units 15:33 17:09 Lymphocytes # (1.0-4.8) k/uL Chloride (98-107) mmol/L BUN (9-20) mg/dL Glucose (74-99) mg/dL POC Glucose (mg/dL) 108 H (75-99) mg/dL Calcium (8.4-10.2) mg/dL Phosphorus (2.5-4.5) mg/dL Total Protein (6.3-8.2) g/dL Albumin (3.5-5.0) g/dL LDL Cholesterol, Calc (0-99) mg/dL Urine pH 8.5 H (5.0-8.0) Urine Protein 2+ H (Negative) Urine Ketones 2+ H (Negative) Urine Mucus Rare H (None) /hpf U Marijuana (THC) Screen Detected H (NotDetected) Abdominal x-ray: report reviewed (X-ray of the abdomen was unremarkable) Assessment and Plan (1) Epigastric abdominal pain Narrative/Plan: Patient reporting intermittent episodes of epigastric abdominal pain over the past few months. He denies any NSAID use, not on any treatment with PPI therapy or H2 antagonist therapy. Concern is for possible ulcer disease. Current Visit: Yes Status: Acute Code(s): R10.13 - EPIGASTRIC PAIN SNOMED Code(s): 93844070 (2) Intractable vomiting with nausea Current Visit: Yes Status: Acute Code(s): R11.2 - NAUSEA WITH VOMITING, UNSPECIFIED SNOMED Code(s): 634304566 Plan: Supportive care Nothing by mouth Continue Protonix therapy Can consider trial of Bentyl therapy if no improvement on PPI Plan for EGD for further investigation Thank you for allowing us to participate in the care of this patient we will continue to follow
[2018-07-30] MEDS ORDERED: IV FLUID CONTINUATION 900 ML IV ONE (14:01)
--- NOTE | 2018-07-30 14:14 | P.PCN ---
Date of Procedure: 07/30/18 Description of Procedure: BRIEF HISTORY: The patient is a pleasant 37-year-old male with a medical history significant for asthma and seizures disorder who presented to the hospital due to lightheadedness and nausea. The patient reports 3 episodes of associated vomiting, described as nonbloody, nonbilious. He reports he tried to take water and that he brought it back up. He denies any fevers or chills. He does report dull epigastric abdominal pain that has been going on for months now. He reports that the pain will occur intermittently and can be severe in intensity. He denies any NSAID use. He is not on any PPI therapy or NSAID therapy. No prior EGD or colonoscopy reported.. PROCEDURE PERFORMED: Esophagogastroduodenoscopy with biopsy. PREOPERATIVE DIAGNOSIS: Abdominal pain, nausea and vomiting. ESTIMATED BLOOD LOSS: Minimal. IV sedation per anesthesia. PROCEDURE: After informed consent was obtained, the patient was brought into the endoscopy unit. IV sedation was administered by Anesthesia under continuous monitoring. Initially the Olympus GIF-190 video endoscope was inserted into the mouth. Esophagus intubated without any difficulty. It was gradually advanced into the stomach and duodenum and carefully examined. There was some erythema and superficial erosions of the duodenal bulb and mild erythema of the second portion of the duodenum with biopsies taken of the bulb and second portion. The scope at this time was withdrawn to the stomach, adequately insufflated with air , and upon careful examination, mucosa of the antrum, body, cardia and the fundus appeared normal, except for some mild scattered erythema in the antrum and body suggestive of mild gastritis biopsied. The scope was then withdrawn into the esophagus. The GE junction was located at 39 cm from the incisors. The esophagus appeared normal. There were no erosions or ulcerations seen and the patient tolerated the procedure well. IMPRESSION: 1. Moderate duodenitis of the bulb and second portion of the duodenum, biopsied. 2. Mild gastritis of the antrum and body, biopsied. RECOMMENDATIONS: The findings of this examination were discussed with the patient. Okay for diet. Discharge on Protonix daily. Avoid NSAID medications. Await pathology from biopsies.
[2018-07-30] MEDS ORDERED: PANTOPRAZOLE 40 MG TABLET PO SCH (14:30)
--- NOTE | 2018-07-31 09:22 | DS ---
DISCHARGE SUMMARY DATE OF SERVICE: 07/30/2018 FINAL DIAGNOSES: 1. Chest pain, possibly musculoskeletal or gastroesophageal reflux disease. 2. Status post negative stress test. 3. Recurrent vomiting possible moderate duodenitis status post biopsy as well as gastritis. 4. History of THC. 5. History of asthma. 6. History of seizure disorder. DISCHARGE DISPOSITION: The patient will be discharged in a stable condition with guarded prognosis. HISTORY OF PRESENT ILLNESS: This is a 37-year-old gentleman with a past medical history of multiple medical problems. Chest pain and myocardial infarction ruled out. The patient had a stress test which was negative. Patient also had an EGD by Dr. Calero, showed duodenitis the required outpatient followup. On exam, vitals are stable. CARDIOVASCULAR: S1, S2. ABDOMEN: Soft. NERVOUS SYSTEM: No focal deficits. Discharge diet is soft, bland. Suggested to stop smoking and THC. Follow up with Dr. Linh Shannon in 1 week. Follow up with Dr. Calero as recommended. MEDICATIONS: Protonix 40 mg p.o. daily. CBC BMP with Dr. Linh Shannon. Biopsy report per Dr. Calero, Gastroenterology. Once again, the patient will be discharged in a stable condition with guarded prognosis. MMODL / IJN: [id number] /
== END 2018-07-30 17:14 | disposition home or self-care (01) ==
LOC: EC 14:19 → 1SOBS 19:43
PROVIDERS: ADMIT Internal Medicine; ATTEND Internal Medicine
DX: R07.89 Other chest pain (principal); K29.50 Unspecified chronic gastritis without bleeding; K29.80 Duodenitis without bleeding; J45.909 Unspecified asthma, uncomplicated; G40.909 Epilepsy, unspecified, not intractable, without status epilepticus; F43.9 Reaction to severe stress, unspecified; R53.1 Weakness; F12.90 Cannabis use, unspecified, uncomplicated; Z91.013 Allergy to seafood; Z91.018 Allergy to other foods; Z87.891 Personal history of nicotine dependence; Z87.820 Personal history of traumatic brain injury; Z82.3 Family history of stroke; Z80.41 Family history of malignant neoplasm of ovary
CPT/HCPCS: 96375 ×2; 96361; 96365; 99285; 36415; 93005; 93306; 93351; 88305; 80061; 80053; 82150; 83690; 83735; 84100; 84484; 85025; 85610; 85730; 81001; 80306; 71046; 74019; 43239; G0378 ×2; J2405 ×2; J2001; J1885; J3475; J2704; C9113

== ENCOUNTER 2018-08-10 20:14 | Emergency (ER) | payer BC ==
[2018-08-10 20:27] VITALS: TEMP 99.1
[2018-08-10] MEDS ORDERED: SODIUM CHLORIDE 0.9% 1,000 ML IV STA (20:57)
[2018-08-10] MEDS ORDERED: MORPHINE SULFATE 4 MG/ML SYRINGE IVP STA (20:58)
[2018-08-10 21:14] LABS: Basophils % (A) 0 %; Eosinophils # (A) 0.3 k/uL (0-0.7); Eosinophils % (A) 2 %; HCT 45.1 % (39.0-53.0); HGB 14.8 gm/dL (13.0-17.5); Lymphocytes % (A) 6 %; MCH 30.7 pg (25.0-35.0); MCHC 32.7 g/dL (31.0-37.0); MCV 93.7 fL (80.0-100.0); Mean Platelet Volume 8.5; Monocytes # (A) 0.8 k/uL (0-1.0); Monocytes % (A) 5 %; Neutrophils # (A) 14.2 k/uL (1.3-7.7); Neutrophils % (A) 87 %; Platelet Count 280 k/uL (150-450); RBC 4.81 m/uL (4.30-5.90); RDW 13.8 % (11.5-15.5); WBC 16.3 k/uL (3.8-10.6)
[2018-08-10 21:24] LABS: Albumin 4.5 g/dL (3.5-5.0); Calcium 9.9 mg/dL (8.4-10.2); Potassium 4.3 mmol/L (3.5-5.1); Total Bilirubin 0.9 mg/dL (0.2-1.3); Total Protein 7.7 g/dL (6.3-8.2)
[2018-08-10 21:27] LABS: Appearance,Urine Clear (Clear); Bilirubin,Urine Negative (Negative); Blood,Urine Trace (Negative); Color,Urine Light Yellow; Glucose,Urine (UA) Negative (Negative); Ketones,Urine Trace (Negative); Leukocyte Esterase,Urine Negative (Negative); Mucus,Urine Rare /hpf; Nitrite,Urine Negative (Negative); Protein,Urine 1+ (Negative); RBC,Urine 1 /hpf (0-5); Specific Gravity,Urine 1.012 (1.001-1.035); Urobilinogen,Urine <2.0 mg/dL (<2.0); WBC,Urine 1 /hpf (0-5)
[2018-08-10] MEDS ORDERED: SODIUM CHLORIDE 0.9% 1,000 ML IV ONE (21:33)
[2018-08-10 21:38] LABS: Amphetamine Screen,Urine Not Detected (NotDetected); Barbiturate Screen,Urine Not Detected (NotDetected); Benzodiazepines Screen,Urine Not Detected (NotDetected); Cocaine Screen,Urine Not Detected (NotDetected); Methadone Screen, Urine Not Detected (NotDetected); Opiate Screen,Urine Not Detected (NotDetected); Oxycodone Screen, Urine Not Detected (NotDetected); Phencyclidine Screen,Urine Not Detected (NotDetected); Tricyclic Antidepressant,Urine Not Detected (NotDetected); Urn Cannabinoid Scrn Detected (NotDetected)
--- NOTE | 2018-08-10 21:38 | ED ---
General Adult HPI - General Chief complaint: Seizure Stated complaint: Seizure Time Seen by Provider: 08/10/18 20:49 Source: patient, family, EMS, RN notes reviewed, old records reviewed Mode of arrival: EMS Limitations: altered mental status - History of Present Illness Initial comments: 37-year-old male presents for evaluation of suspected seizure. Patient has had 4 episodes over the past several months of left lateral consciousness, suspect seizure activity. He has been given neurology follow-up but has been unable to make an appointment to date. He is not currently on any seizure medication. He had an episode today where he had a shaking episode, altered level of consciousness. Time my evaluation patient is alert, somewhat sleepy. He is able to give a good history. There was head trauma with abrasion to the forehead. He is complaining of left shoulder pain. No chest pain or abdominal pain. Patient has had chronic marijuana use and there is some concern that this may be related to his symptoms. He does report some intermittent nausea and vomiting. - Related Data Home Medications Medication Instructions Recorded Confirmed No Known Home Medications 08/10/18 08/10/18 Allergies Allergy/AdvReac Type Severity Reaction Status Date / Time Fish Containing Products AdvReac Nausea Verified 08/10/18 20:50 [Fish] Review of Systems ROS Statement: Those systems with pertinent positive or pertinent negative responses have been documented in the HPI. ROS Other: All systems not noted in ROS Statement are negative. Past Medical History Past Medical History: Asthma Additional Past Medical History / Comment(s): Pt seen in ER 05/24/18 possible seizure/head injury - never followed up with neurp History of Any Multi-Drug Resistant Organisms: None Reported Past Surgical History: No Surgical Hx Reported Additional Past Surgical History / Comment(s): 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 Past Anesthesia/Blood Transfusion Reactions: No Reported Reaction Past Psychological History: No Psychological Hx Reported Additional Psychological History / Comment(s): Pt resides with his spouse and their 4 children. He is independent. Smoking Status: Never smoker Past Alcohol Use History: None Reported Past Drug Use History: None Reported - Past Family History Father Family Medical History: CVA/TIA Additional Family Medical History / Comment(s): Father had a CVA. He is Mother Family Medical History: Cancer Additional Family Medical History / Comment(s): Mother of ovarian cancer. General Exam Limitations: altered mental status General appearance: alert Head exam: Absent: atraumatic (Right forehead abrasion) Eye exam: Present: normal appearance, PERRL ENT exam: Present: mucous membranes dry Neck exam: Present: normal inspection, full ROM. Absent: tenderness, meningismus Respiratory exam: Present: normal lung sounds bilaterally. Absent: respiratory distress, wheezes Cardiovascular Exam: Present: normal rhythm, tachycardia GI/Abdominal exam: Present: soft. Absent: distended, tenderness, guarding Extremities exam: Absent: full ROM (Decreased range of motion, left shoulder, no external signs trauma, neurovascularly intact) Back exam: Present: normal inspection, full ROM. Absent: tenderness Neurological exam: Present: alert, oriented X3, CN II-XII intact. Absent: motor sensory deficit Psychiatric exam: Present: normal affect, normal mood Skin exam: Present: warm, dry, abrasion. Absent: cyanosis, diaphoretic Course Vital Signs 08/10/18 20:24 Temperature 99.1 F Pulse Rate 113 H Respiratory 18 Rate Blood Pressure 122/82 O2 Sat by Pulse 99 Oximetry EKG Findings - EKG Comments: EKG Findings:: EKG: Normal sinus rhythm, left atrial enlargement, rate of 90, VA interval 146, QRS duration 86, QTC 480 ST segment elevation Medical Decision Making - Medical Decision Making 37-year-old presenting with suspected seizure. Patient mildly confused may be postictal on initial exam, nonfocal neurologic exam, mild forehead abrasion. Head CT obtained negative for intracranial hemorrhage mass effect, x-ray of the left shoulder obtained secondary to pain complaint, negative for fracture dislocation. Patient has elevated white blood cell count 16.3 likely reactive, stable hemoglobin, lactic acid 3.5 consistent with seizure activity. Urinalysis negative, urine drug screen positive only for THC. Patient given 2 L IV fluid, initiated on Keppra. I do suspect new onset seizure in this patient. We'll transfer to [facility] for further evaluation and treatment, neurology consultation. Case discussed with Dr. Palma, will accept transfer. - Lab Data Result diagrams: 08/10/18 20:59 08/10/18 20:59 Lab Results 08/10/18 08/10/18 08/10/18 Range/Units 20:59 20:59 20:59 WBC 16.3 H (3.8-10.6) k/uL RBC 4.81 (4.30-5.90) m/uL Hgb 14.8 (13.0-17.5) gm/dL Hct 45.1 (39.0-53.0) % MCV 93.7 (80.0-100.0) fL MCH 30.7 (25.0-35.0) pg MCHC 32.7 (31.0-37.0) g/dL RDW 13.8 (11.5-15.5) % Plt Count 280 (150-450) k/uL Neutrophils % 87 % Lymphocytes % 6 % Monocytes % 5 % Eosinophils % 2 % Basophils % 0 % Neutrophils # 14.2 H (1.3-7.7) k/uL Lymphocytes # 1.0 (1.0-4.8) k/uL Monocytes # 0.8 (0-1.0) k/uL Eosinophils # 0.3 (0-0.7) k/uL Basophils # 0.0 (0-0.2) k/uL Sodium 140 (137-145) mmol/L Potassium 4.3 (3.5-5.1) mmol/L Chloride 105 (98-107) mmol/L Carbon Dioxide 25 (22-30) mmol/L Anion Gap 10 mmol/L BUN 8 L (9-20) mg/dL Creatinine 1.34 H (0.66-1.25) mg/dL Est GFR (CKD-EPI)AfAm 79 (>60 ml/min/1.73 sqM) Est GFR (CKD-EPI)NonAf 68 (>60 ml/min/1.73 sqM) Glucose 108 H (74-99) mg/dL Plasma Lactic Acid Emmett 3.4 H* (0.7-2.0) mmol/L Calcium 9.9 (8.4-10.2) mg/dL Total Bilirubin 0.9 (0.2-1.3) mg/dL AST 17 (17-59) U/L ALT 28 (21-72) U/L Alkaline Phosphatase 67 (38-126) U/L Total Protein 7.7 (6.3-8.2) g/dL Albumin 4.5 (3.5-5.0) g/dL Urine Color Urine Appearance (Clear) Urine pH (5.0-8.0) Ur Specific [place] (1.001-1.035) Urine Protein (Negative) Urine Glucose (UA) (Negative) Urine Ketones (Negative) Urine Blood (Negative) Urine Nitrite (Negative) Urine Bilirubin (Negative) Urine Urobilinogen (<2.0) mg/dL Ur Leukocyte Esterase (Negative) Urine RBC (0-5) /hpf Urine WBC (0-5) /hpf Urine Mucus (None) /hpf Urine Opiates Screen (NotDetected) Ur Oxycodone Screen (NotDetected) Urine Methadone Screen (NotDetected) Ur Propoxyphene Screen (NotDetected) Ur Barbiturates Screen (NotDetected) U Tricyclic Antidepress (NotDetected) Ur Phencyclidine Scrn (NotDetected) Ur Amphetamines Screen (NotDetected) U Methamphetamines Scrn (NotDetected) U Benzodiazepines Scrn (NotDetected) Urine Cocaine Screen (NotDetected) U Marijuana (THC) Screen (NotDetected) 08/10/18 Range/Units 21:21 WBC (3.8-10.6) k/uL RBC (4.30-5.90) m/uL Hgb (13.0-17.5) gm/dL Hct (39.0-53.0) % MCV (80.0-100.0) fL MCH (25.0-35.0) pg MCHC (31.0-37.0) g/dL RDW (11.5-15.5) % Plt Count (150-450) k/uL Neutrophils % % Lymphocytes % % Monocytes % % Eosinophils % % Basophils % % Neutrophils # (1.3-7.7) k/uL Lymphocytes # (1.0-4.8) k/uL Monocytes # (0-1.0) k/uL Eosinophils # (0-0.7) k/uL Basophils # (0-0.2) k/uL Sodium (137-145) mmol/L Potassium (3.5-5.1) mmol/L Chloride (98-107) mmol/L Carbon Dioxide (22-30) mmol/L Anion Gap mmol/L BUN (9-20) mg/dL Creatinine (0.66-1.25) mg/dL Est GFR (CKD-EPI)AfAm (>60 ml/min/1.73 sqM) Est GFR (CKD-EPI)NonAf (>60 ml/min/1.73 sqM) Glucose (74-99) mg/dL Plasma Lactic Acid Emmett (0.7-2.0) mmol/L Calcium (8.4-10.2) mg/dL Total Bilirubin (0.2-1.3) mg/dL AST (17-59) U/L ALT (21-72) U/L Alkaline Phosphatase (38-126) U/L Total Protein (6.3-8.2) g/dL Albumin (3.5-5.0) g/dL Urine Color Light Yellow Urine Appearance Clear (Clear) Urine pH 6.0 (5.0-8.0) Ur Specific [place] 1.012 (1.001-1.035) Urine Protein 1+ H (Negative) Urine Glucose (UA) Negative (Negative) Urine Ketones Trace H (Negative) Urine Blood Trace H (Negative) Urine Nitrite Negative (Negative) Urine Bilirubin Negative (Negative) Urine Urobilinogen <2.0 (<2.0) mg/dL Ur Leukocyte Esterase Negative (Negative) Urine RBC 1 (0-5) /hpf Urine WBC 1 (0-5) /hpf Urine Mucus Rare H (None) /hpf Urine Opiates Screen Not Detected (NotDetected) Ur Oxycodone Screen Not Detected (NotDetected) Urine Methadone Screen Not Detected (NotDetected) Ur Propoxyphene Screen Not Detected (NotDetected) Ur Barbiturates Screen Not Detected (NotDetected) U Tricyclic Antidepress Not Detected (NotDetected) Ur Phencyclidine Scrn Not Detected (NotDetected) Ur Amphetamines Screen Not Detected (NotDetected) U Methamphetamines Scrn Not Detected (NotDetected) U Benzodiazepines Scrn Not Detected (NotDetected) Urine Cocaine Screen Not Detected (NotDetected) U Marijuana (THC) Screen Detected H (NotDetected) Disposition Clinical Impression: New onset seizure Disposition: OTHER INSTITUTION NOT DEFINED Condition: Stable Is patient prescribed a controlled substance at d/c from ED?: No Referrals: None,Stated [Primary Care Provider] - 1-2 days Time of Disposition: 22:23 - Out of Hospital Transfer - Req. Specs Out of Hospital Transfer - Requested Specifics: Other Emergency Center (Transfer to [facility])
--- NOTE | 2018-08-10 21:50 | CT ---
EXAMINATION: CT brain wo con DATE AND TIME: 08/10/2018 9:39 PM CLINICAL INDICATION: PHH; seizure activity TECHNIQUE: Standard departmental protocol.; 1082.4; COMPARISON: 06/24/2018 FINDINGS: The calvarium is intact. There is no intracranial hemorrhage. There is no intracranial mass or mass effect. No definite new intra-axial or extra-axial attenuation defect. The paranasal sinuses, middle ear cavities, and mastoid sinus air cells are clear. The orbits are unremarkable. IMPRESSION: NO ACUTE PROCESS.
--- NOTE | 2018-08-10 21:51 | XR ---
PROCEDURE: XR shoulder complete LT - 3V DATE AND TIME: 08/10/2018 9:42 PM CLINICAL INDICATION: PHH; Pain TECHNIQUE: Department protocol COMPARISON: None FINDINGS: There is no fracture or malalignment. The soft tissues are unremarkable. IMPRESSION: NO ACUTE PROCESS.
[2018-08-10] MEDS ORDERED: levETIRAcetam IV 1,000 MG in SALINE 1 100ML.BAG IVPB ONE (22:00)
[2018-08-10 23:02] VITALS: BP 117/95; PULSE 85; RESP 16
== END 2018-08-10 23:04 | disposition short-term general hospital (02) ==
LOC: EC 20:14
DX: R56.9 Unspecified convulsions (principal); S00.81XA Abrasion of other part of head, initial encounter; D72.829 Elevated white blood cell count, unspecified; F12.90 Cannabis use, unspecified, uncomplicated; R00.0 Tachycardia, unspecified; R41.0 Disorientation, unspecified; M25.512 Pain in left shoulder; R11.2 Nausea with vomiting, unspecified; Z91.013 Allergy to seafood; W06.XXXA Fall from bed, initial encounter
CPT/HCPCS: 99285; 96365; 96361; 36415; 93005; 80053; 83605; 85025; 81001; 80306; 73030; 70450; J1953

== ENCOUNTER 2018-11-22 13:27 | Emergency (ER) | payer BC ==
[2018-11-22] MEDS ORDERED: SODIUM CHLORIDE 0.9% 500 ML 500 ML IV STA (13:31)
[2018-11-22] MEDS ORDERED: SODIUM CHLORIDE 0.9% 1,000 ML IV STA (13:31)
[2018-11-22] MEDS ORDERED: DIPH,PERTUS(ACELL)TETVAC-LF 0.5 ML VIAL IM ONE (13:32)
[2018-11-22 13:42] VITALS: TEMP 97.3
[2018-11-22 13:58] LABS: Glucose,Whole Blood 128 mg/dL (75-99)
[2018-11-22 14:21] LABS: Basophils # (A) 0.1 k/uL (0-0.2); Basophils % (A) 1 %; Eosinophils # (A) 0.4 k/uL (0-0.7); Eosinophils % (A) 8 %; HCT 42.7 % (39.0-53.0); HGB 14.4 gm/dL (13.0-17.5); Lymphocytes # (A) 1.5 k/uL (1.0-4.8); Lymphocytes % (A) 28 %; MCH 30.4 pg (25.0-35.0); MCHC 33.7 g/dL (31.0-37.0); MCV 90.3 fL (80.0-100.0); Mean Platelet Volume 8.5; Monocytes # (A) 0.2 k/uL (0-1.0); Monocytes % (A) 4 %; Neutrophils % (A) 57 %; Platelet Count 343 k/uL (150-450); RBC 4.72 m/uL (4.30-5.90); RDW 13.6 % (11.5-15.5); WBC 5.3 k/uL (3.8-10.6)
--- NOTE | 2018-11-22 14:23 | ED ---
Seizure HPI - General Chief Complaint: Seizure Stated Complaint: Seizure Time Seen by Provider: 11/22/18 13:27 Source: patient, EMS, RN notes reviewed Mode of arrival: EMS Limitations: altered mental status - History of Present Illness Initial Comments: This is a 38-year-old male with a history of seizure disorder who was brought in by EMS after being found have a seizure lasting perhaps 2 minutes at a local [place] station. He was brought in with cervical collar he did have abrasions to his face and left hand. He appeared be postictal upon arrival with agitation. No focal deficits MD Complaint: seizure - Related Data Home Medications Medication Instructions Recorded Confirmed Zonisamide [Zonegran] 100 mg PO TID 11/22/18 11/22/18 Previous Rx's Medication Instructions Recorded Ibuprofen 800 mg PO Q6HR PRN #20 tablet 11/22/18 Allergies Allergy/AdvReac Type Severity Reaction Status Date / Time Fish Containing Products AdvReac Nausea Verified 11/22/18 14:09 [Fish] Review of Systems ROS Statement: Those systems with pertinent positive or pertinent negative responses have been documented in the HPI. ROS Other: All systems not noted in ROS Statement are negative. Limitations: ROS unobtainable due to patients medical condition Past Medical History Past Medical History: Asthma Additional Past Medical History / Comment(s): Pt seen in ER 05/24/18 possible seizure/head injury - never followed up with neurp History of Any Multi-Drug Resistant Organisms: None Reported Past Surgical History: No Surgical Hx Reported Additional Past Surgical History / Comment(s): 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 Past Anesthesia/Blood Transfusion Reactions: No Reported Reaction Past Psychological History: No Psychological Hx Reported Smoking Status: Never smoker Past Alcohol Use History: None Reported Past Drug Use History: None Reported - Past Family History Father Family Medical History: CVA/TIA Additional Family Medical History / Comment(s): Father had a CVA. He is Mother Family Medical History: Cancer Additional Family Medical History / Comment(s): Mother of ovarian cancer. General Exam - General Exam Comments Initial Comments: Is a well-developed well-nourished agitated male who does not respond to initial verbal stimulation he stranding crawl off of the EMS gurney. Limitations: altered mental status General appearance: alert, anxious Head exam: Present: normocephalic (Abrasion to the right face with a superficial laceration) Eye exam: Present: normal appearance, PERRL, EOMI. Absent: scleral icterus, conjunctival injection, periorbital swelling ENT exam: Present: normal exam, mucous membranes moist Neck exam: Present: normal inspection, other (Cervical collar in place) Respiratory exam: Present: normal lung sounds bilaterally. Absent: respiratory distress, wheezes, rales, rhonchi, stridor Cardiovascular Exam: Present: regular rate, normal rhythm, normal heart sounds. Absent: systolic murmur, diastolic murmur, rubs, gallop, clicks GI/Abdominal exam: Present: soft, normal bowel sounds. Absent: distended, tenderness, guarding, rebound, rigid Extremities exam: Present: full ROM, normal capillary refill, other (Abrasion over the left hand no active bleeding at this time. He also indicates left shoulder pain) Back exam: Present: normal inspection Neurological exam: Present: altered, CN II-XII intact. Absent: motor sensory deficit Psychiatric exam: Present: anxious Skin exam: Present: warm, normal color, diaphoretic, other (Abrasions as above) Course Vital Signs 11/22/18 11/22/18 13:37 15:52 Temperature 97.3 F L Pulse Rate 104 H 74 Respiratory 18 16 Rate Blood Pressure 137/85 129/77 O2 Sat by Pulse 98 100 Oximetry Medical Decision Making - Medical Decision Making Patient was observed for a period time in emergency department he did initially demonstrate evidence of postictal findings on evaluation he did slowly recover and at this time is awake alert oriented 3 [place] Coma Scale of 15. The laceration on his right forearm was repaired by Morgan clancy physician senior sales assistant. Patient did tolerate this well he'll be discharged to follow-up with his doctor - Lab Data Result diagrams: 11/22/18 14:00 11/22/18 14:00 Lab Results 11/22/18 11/22/18 11/22/18 Range/Units 13:55 14:00 14:00 WBC 5.3 (3.8-10.6) k/uL RBC 4.72 (4.30-5.90) m/uL Hgb 14.4 (13.0-17.5) gm/dL Hct 42.7 (39.0-53.0) % MCV 90.3 (80.0-100.0) fL MCH 30.4 (25.0-35.0) pg MCHC 33.7 (31.0-37.0) g/dL RDW 13.6 (11.5-15.5) % Plt Count 343 (150-450) k/uL Neutrophils % 57 % Lymphocytes % 28 % Monocytes % 4 % Eosinophils % 8 % Basophils % 1 % Neutrophils # 3.0 (1.3-7.7) k/uL Lymphocytes # 1.5 (1.0-4.8) k/uL Monocytes # 0.2 (0-1.0) k/uL Eosinophils # 0.4 (0-0.7) k/uL Basophils # 0.1 (0-0.2) k/uL Sodium 141 (137-145) mmol/L Potassium 4.6 (3.5-5.1) mmol/L Chloride 110 H (98-107) mmol/L Carbon Dioxide 18 L (22-30) mmol/L Anion Gap 13 mmol/L BUN 9 (9-20) mg/dL Creatinine 1.50 H (0.66-1.25) mg/dL Est GFR (CKD-EPI)AfAm 68 (>60 ml/min/1.73 sqM) Est GFR (CKD-EPI)NonAf 59 (>60 ml/min/1.73 sqM) Glucose 119 H (74-99) mg/dL POC Glucose (mg/dL) 128 H (75-99) mg/dL POC Glu Retail Banking Manager ID Sarath Castaneda Calcium 9.6 (8.4-10.2) mg/dL Magnesium 1.9 (1.6-2.3) mg/dL Total Bilirubin 0.3 (0.2-1.3) mg/dL AST 16 L (17-59) U/L ALT 14 L (21-72) U/L Alkaline Phosphatase 63 (38-126) U/L Total Creatine Kinase (55-170) U/L CK-MB (CK-2) (0.0-2.4) ng/mL CK-MB (CK-2) Rel Index Total Protein 7.3 (6.3-8.2) g/dL Albumin 4.3 (3.5-5.0) g/dL Urine Opiates Screen (NotDetected) Ur Oxycodone Screen (NotDetected) Urine Methadone Screen (NotDetected) Ur Propoxyphene Screen (NotDetected) Ur Barbiturates Screen (NotDetected) U Tricyclic Antidepress (NotDetected) Ur Phencyclidine Scrn (NotDetected) Ur Amphetamines Screen (NotDetected) U Methamphetamines Scrn (NotDetected) U Benzodiazepines Scrn (NotDetected) Urine Cocaine Screen (NotDetected) U Marijuana (THC) Screen (NotDetected) Serum Alcohol <10 mg/dL 11/22/18 11/22/18 Range/Units 14:00 14:25 WBC (3.8-10.6) k/uL RBC (4.30-5.90) m/uL Hgb (13.0-17.5) gm/dL Hct (39.0-53.0) % MCV (80.0-100.0) fL MCH (25.0-35.0) pg MCHC (31.0-37.0) g/dL RDW (11.5-15.5) % Plt Count (150-450) k/uL Neutrophils % % Lymphocytes % % Monocytes % % Eosinophils % % Basophils % % Neutrophils # (1.3-7.7) k/uL Lymphocytes # (1.0-4.8) k/uL Monocytes # (0-1.0) k/uL Eosinophils # (0-0.7) k/uL Basophils # (0-0.2) k/uL Sodium (137-145) mmol/L Potassium (3.5-5.1) mmol/L Chloride (98-107) mmol/L Carbon Dioxide (22-30) mmol/L Anion Gap mmol/L BUN (9-20) mg/dL Creatinine (0.66-1.25) mg/dL Est GFR (CKD-EPI)AfAm (>60 ml/min/1.73 sqM) Est GFR (CKD-EPI)NonAf (>60 ml/min/1.73 sqM) Glucose (74-99) mg/dL POC Glucose (mg/dL) (75-99) mg/dL POC Glu Retail Banking Manager ID Calcium (8.4-10.2) mg/dL Magnesium (1.6-2.3) mg/dL Total Bilirubin (0.2-1.3) mg/dL AST (17-59) U/L ALT (21-72) U/L Alkaline Phosphatase (38-126) U/L Total Creatine Kinase 256 H (55-170) U/L CK-MB (CK-2) 0.8 (0.0-2.4) ng/mL CK-MB (CK-2) Rel Index 0.3 Total Protein (6.3-8.2) g/dL Albumin (3.5-5.0) g/dL Urine Opiates Screen Not Detected (NotDetected) Ur Oxycodone Screen Not Detected (NotDetected) Urine Methadone Screen Not Detected (NotDetected) Ur Propoxyphene Screen Not Detected (NotDetected) Ur Barbiturates Screen Not Detected (NotDetected) U Tricyclic Antidepress Not Detected (NotDetected) Ur Phencyclidine Scrn Not Detected (NotDetected) Ur Amphetamines Screen Not Detected (NotDetected) U Methamphetamines Scrn Not Detected (NotDetected) U Benzodiazepines Scrn Not Detected (NotDetected) Urine Cocaine Screen Not Detected (NotDetected) U Marijuana (THC) Screen Detected H (NotDetected) Serum Alcohol mg/dL - EKG Data -: EKG Interpreted by Ri EKG shows normal: sinus rhythm (Sinus rhythm of 85. Interval 150 to QRS duration 80 QT since QTC 362/4:30 or T-wave changes) - Radiology Data Radiology results: report reviewed, image reviewed Disposition Clinical Impression: Epileptic seizure, Facial laceration, Facial abrasion, Left shoulder strain Disposition: HOME SELF-CARE Condition: Fair Instructions (If sedation given, give patient instructions): Recurrent Seizures in Adults (ED), Laceration (DC), Facial Laceration (ED) Additional Instructions: No driving until cleared by your physician and follow-up with her doctor next 2-3 days. Continue with your current medication Prescriptions: Ibuprofen 800 mg PO Q6HR PRN #20 tablet PRN Reason: Pain Is patient prescribed a controlled substance at d/c from ED?: No Referrals: None,Stated [Primary Care Provider] - 1-2 days
[2018-11-22 14:34] LABS: ALT 14 U/L (21-72); AST 16 U/L (17-59); African American GFR (CKD) 68 (>60 ml/min/1.73 sqM); Albumin 4.3 g/dL (3.5-5.0); Alcohol <10 mg/dL; Alkaline Phosphatase 63 U/L (38-126); Anion Gap 13 mmol/L; Blood Urea Nitrogen 9 mg/dL (9-20); Calcium 9.6 mg/dL (8.4-10.2); Carbon Dioxide 18 mmol/L (22-30); Chloride 110 mmol/L (98-107); Glucose 119 mg/dL (74-99); Magnesium 1.9 mg/dL (1.6-2.3); Potassium 4.6 mmol/L (3.5-5.1); Sodium 141 mmol/L (137-145); Total Bilirubin 0.3 mg/dL (0.2-1.3); Total Protein 7.3 g/dL (6.3-8.2)
[2018-11-22 14:47] LABS: Amphetamine Screen,Urine Not Detected (NotDetected); Barbiturate Screen,Urine Not Detected (NotDetected); Benzodiazepines Screen,Urine Not Detected (NotDetected); Cocaine Screen,Urine Not Detected (NotDetected); Methadone Screen, Urine Not Detected (NotDetected); Opiate Screen,Urine Not Detected (NotDetected); Oxycodone Screen, Urine Not Detected (NotDetected); Phencyclidine Screen,Urine Not Detected (NotDetected); Tricyclic Antidepressant,Urine Not Detected (NotDetected); Urn Cannabinoid Scrn Detected (NotDetected)
[2018-11-22 14:57] LABS: Creatine Kinase MB 0.8 ng/mL (0.0-2.4)
--- NOTE | 2018-11-22 14:58 | CT ---
EXAMINATION TYPE: CT brain cspine wo con DATE OF EXAM: 11/22/2018 COMPARISON: 08/10/2018 HISTORY: Right frontal injury after seizure today. CT DLP: 1373.4 mGycm Automated exposure control for dose reduction was used. TECHNIQUE: CT scan of the head and cervical spine are performed without contrast. FINDINGS: There is a subcutaneous 1.4 cm calcification along the right frontal bone which was not s een on the prior exam. Appears to be soft tissue thickening or hematoma in the region. Ventricular sy stem is midline. No midline shift or mass effect. No acute hemorrhage.. Cervical spine is visualized in its entirety from C1 through upper thoracic levels and demonstrates s atisfactory alignment without evidence of acute fracture or dislocation. Prevertebral soft tissue ap pears within normal limits. The C1-C2 articulation is unremarkable. Assessment of the spinal canal nondiagnostic due to resolution and artifact. IMPRESSION: 1. There is no acute fracture or dislocation evident in the cervical spine. 2. No acute intracranial hemorrhage, mass effect, or midline shift is seen. Soft tissue edema overlyi ng the right frontal bone and there is a large area of suspected calcification within the subcutaneou s tissues which was not seen on the prior exam. Correlate clinically to exclude foreign body. Otherwi se consider dystrophic calcification.
--- NOTE | 2018-11-22 15:18 | XR ---
EXAMINATION TYPE: XR chest 2V DATE OF EXAM: 11/22/2018 COMPARISON: 07/29/2018 HISTORY: 38-year-old male with cough and fall during seizure TECHNIQUE: AP and lateral views FINDINGS: The cardiomediastinal silhouette, aorta, and pulmonary vasculature are within normal limits. Lungs an d pleural spaces are clear. IMPRESSION: No acute cardiopulmonary process.
--- NOTE | 2018-11-22 15:19 | XR ---
EXAMINATION TYPE: XR humerus LT DATE OF EXAM: 11/22/2018 COMPARISON: 08/10/2018 HISTORY: 38-year-old male with pain after fall during seizure TECHNIQUE: 2 views FINDINGS: No acute fracture identified. Shoulder and elbow articulations appear grossly intact. IMPRESSION: No acute osseous abnormality seen.
[2018-11-22 15:54] VITALS: RESP 16
[2018-11-22] MEDS ORDERED: TOPICAL SKIN ADHESIVE 1 EACH AMP TOPICAL ONE (16:18)
[2018-11-22 16:52] VITALS: BP 130/80; PULSE 78
--- NOTE | 2018-11-23 02:59 | CDI ---
Documentation Clarification OP Dear Drew VIVAR MD, Please provide the addendum for laceration procedure (repaired by PA) Thank you, Regina Fay Rheumatology Specialist If you have any question, Please contact medical coding instructor at [phone] MTDD
== END 2018-11-22 16:40 | disposition home or self-care (01) ==
LOC: EC 13:27
DX: S01.81XA Laceration without foreign body of other part of head, initial encounter (principal); S46.912A Strain of unspecified muscle, fascia and tendon at shoulder and upper arm level, left arm, initial encounter; Z23 Encounter for immunization; G40.909 Epilepsy, unspecified, not intractable, without status epilepticus; Z79.899 Other long term (current) drug therapy; Z91.013 Allergy to seafood
CPT/HCPCS: 12011; 36415; 70450; 71046; 72125; 80053; 80306; 80320; 82550; 82553; 83735; 85025; 90471; 90715; 93005; 96360; 96361; 99285

== ENCOUNTER 2018-12-09 14:34 | Emergency (ER) | payer BC ==
[2018-12-09] MEDS ORDERED: SODIUM CHLORIDE 0.9% 500 ML 500 ML IV STA (14:38)
[2018-12-09 14:50] VITALS: PULSE 99; RESP 18; TEMP 98
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
[2018-12-09 15:12] LABS: Basophils # (A) 0.1 k/uL (0-0.2); Basophils % (A) 1 %; Eosinophils # (A) 0.5 k/uL (0-0.7); Eosinophils % (A) 8 %; HCT 44.2 % (39.0-53.0); HGB 14.3 gm/dL (13.0-17.5); Lymphocytes # (A) 2.1 k/uL (1.0-4.8); Lymphocytes % (A) 35 %; MCH 29.6 pg (25.0-35.0); MCHC 32.4 g/dL (31.0-37.0); MCV 91.3 fL (80.0-100.0); Mean Platelet Volume 8.4; Monocytes # (A) 0.3 k/uL (0-1.0); Monocytes % (A) 5 %; Neutrophils # (A) 2.8 k/uL (1.3-7.7); Neutrophils % (A) 48 %; Platelet Count 343 k/uL (150-450); RBC 4.84 m/uL (4.30-5.90); RDW 13.5 % (11.5-15.5); WBC 5.9 k/uL (3.8-10.6)
--- NOTE | 2018-12-09 15:20 | XR ---
EXAMINATION TYPE: XR shoulder complete LT DATE OF EXAM: 12/09/2018 COMPARISON: 08/10/2018 HISTORY: Shoulder pain TECHNIQUE: 3 views FINDINGS: I see no fracture nor dislocation. Glenohumeral joint is intact. There are no pathologic ca lcifications. IMPRESSION: Negative left shoulder exam. No change.
[2018-12-09 15:24] LABS: Albumin 4.7 g/dL (3.5-5.0); Calcium 10.1 mg/dL (8.4-10.2); Potassium 4.7 mmol/L (3.5-5.1); Total Bilirubin 0.3 mg/dL (0.2-1.3); Total Protein 7.9 g/dL (6.3-8.2)
[2018-12-09] MEDS ORDERED: LORazepam 1 MG TAB PO STA (15:49)
[2018-12-09 16:20] VITALS: BP 121/78
== END 2018-12-09 16:00 | disposition home or self-care (01) ==
LOC: EC 14:34
DX: G40.909 Epilepsy, unspecified, not intractable, without status epilepticus (principal); M25.512 Pain in left shoulder; Z98.890 Other specified postprocedural states; Z79.899 Other long term (current) drug therapy; Z91.013 Allergy to seafood
CPT/HCPCS: 36415; 80053; 85025; 93005; 99284

== ENCOUNTER 2019-03-02 22:55 | Emergency (ER) | payer BC ==
[2019-03-02 23:09] VITALS: RESP 18; TEMP 99.3
[2019-03-02] MEDS ORDERED: Acetaminophen-Codeine 300-30mg TAB PO STA (23:30)
[2019-03-02] MEDS ORDERED: IBUPROFEN 400 MG TAB PO STA (23:30)
--- NOTE | 2019-03-02 23:55 | XR ---
EXAMINATION TYPE: XR shoulder complete LT DATE OF EXAM: 03/02/2019 COMPARISON: NONE HISTORY: Pain TECHNIQUE: 3 views FINDINGS: There is some spurring of the inferior glenohumeral joint. I see no fracture nor dislocatio n. AC joint appears normal. 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 No fracture.
--- NOTE | 2019-03-02 23:56 | XR ---
EXAMINATION TYPE: XR chest 2V DATE OF EXAM: 03/02/2019 COMPARISON: 11/22/2018 HISTORY: Pain TECHNIQUE: Frontal and lateral views of the chest are obtained. FINDINGS: Heart and mediastinum are normal. Lungs are clear. Diaphragm is normal. Bony thorax appear s normal. Pulmonary vascularity is normal. IMPRESSION: Normal chest. No change.
[2019-03-02 23:58] LABS: Albumin 4.4 g/dL (3.5-5.0); Calcium 9.6 mg/dL (8.4-10.2); Potassium 4.6 mmol/L (3.5-5.1); Total Bilirubin 0.2 mg/dL (0.2-1.3); Total Protein 7.6 g/dL (6.3-8.2)
[2019-03-03] MEDS ORDERED: SODIUM CHLORIDE 0.9% 1,000 ML IV ONE (00:25)
[2019-03-03 00:42] LABS: Appearance,Urine Clear (Clear); Bilirubin,Urine Negative (Negative); Blood,Urine Negative (Negative); Color,Urine Light Yellow; Glucose,Urine (UA) Negative (Negative); Ketones,Urine Negative (Negative); Leukocyte Esterase,Urine Negative (Negative); Nitrite,Urine Negative (Negative); PH, Urine 6.5 (5.0-8.0); Protein,Urine Trace (Negative); Specific Gravity,Urine 1.016 (1.001-1.035); Urobilinogen,Urine <2.0 mg/dL (<2.0)
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
[2019-03-03 01:42] VITALS: BP 129/90; PULSE 65
== END 2019-03-03 01:38 | disposition home or self-care (01) ==
LOC: EC 22:55
DX: S49.92XA Unspecified injury of left shoulder and upper arm, initial encounter (principal); G40.409 Other generalized epilepsy and epileptic syndromes, not intractable, without status epilepticus; Z91.013 Allergy to seafood; Z79.899 Other long term (current) drug therapy; V49.9XXA Car occupant (driver) (passenger) injured in unspecified traffic accident, initial encounter; Y92.410 Unspecified street and highway as the place of occurrence of the external cause; Z53.20 Procedure and treatment not carried out because of patient's decision for unspecified reasons
CPT/HCPCS: 36415; 71046; 80053; 81003; 93005; 96360; 99285

== ENCOUNTER 2019-04-25 21:10 | Emergency (ER) | payer BC ==
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
[2019-04-25] MEDS ORDERED: SODIUM CHLORIDE 0.9% 1,000 ML IV STA ×2 (21:53)
[2019-04-25] MEDS ORDERED: DIAZEPAM 5 MG/ML 2 ML INJ IVP STA (21:53)
[2019-04-25 22:10] LABS: Basophils # (A) 0.1 k/uL (0-0.2); Basophils % (A) 2 %; Eosinophils # (A) 0.7 k/uL (0-0.7); Eosinophils % (A) 9 %; HCT 44.1 % (39.0-53.0); Lymphocytes # (A) 1.6 k/uL (1.0-4.8); Lymphocytes % (A) 23 %; MCH 31.3 pg (25.0-35.0); Mean Platelet Volume 7.7; Monocytes # (A) 0.4 k/uL (0-1.0); Monocytes % (A) 6 %; Neutrophils # (A) 4.2 k/uL (1.3-7.7); Neutrophils % (A) 59 %; Platelet Count 294 k/uL (150-450); RBC 4.79 m/uL (4.30-5.90); RDW 13.5 % (11.5-15.5); WBC 7.1 k/uL (3.8-10.6)
[2019-04-25 22:14] LABS: ALT 26 U/L (21-72); AST 21 U/L (17-59); Acetaminophen <10.0 ug/mL; African American GFR (CKD) 69 (>60 ml/min/1.73 sqM); Albumin 4.7 g/dL (3.5-5.0); Alcohol <10 mg/dL; Alkaline Phosphatase 61 U/L (38-126); Anion Gap 14 mmol/L; Blood Urea Nitrogen 8 mg/dL (9-20); Calcium 10.2 mg/dL (8.4-10.2); Carbon Dioxide 20 mmol/L (22-30); Chloride 106 mmol/L (98-107); Creatine Kinase 234 U/L (55-170); Glucose 91 mg/dL (74-99); Non-African American GFR(CKD) 60 (>60 ml/min/1.73 sqM); Phosphorus 2.9 mg/dL (2.5-4.5); Potassium 4.3 mmol/L (3.5-5.1); Salicylate <1.0 mg/dL; Sodium 140 mmol/L (137-145); Total Bilirubin 0.3 mg/dL (0.2-1.3); Total Protein 8.1 g/dL (6.3-8.2)
[2019-04-25 23:19] VITALS: BP 118/76; PULSE 67; RESP 17; TEMP 98.1
== END 2019-04-25 23:10 | disposition home or self-care (01) ==
LOC: EC 21:10
DX: G40.409 Other generalized epilepsy and epileptic syndromes, not intractable, without status epilepticus (principal); S01.112A Laceration without foreign body of left eyelid and periocular area, initial encounter; Z91.013 Allergy to seafood; Z79.899 Other long term (current) drug therapy; W18.39XA Other fall on same level, initial encounter; Y92.002 Bathroom of unspecified non-institutional (private) residence as the place of occurrence of the external cause
CPT/HCPCS: 36415; 93005; 80053; 82550; 83735; 84100; 85025; 83520; 80329; 99285; 96374; 96361; 80320; J3360

== ENCOUNTER 2019-06-26 12:05 | Emergency (ER) | payer BC ==
[2019-06-26 12:14] VITALS: RESP 18; TEMP 98.2
[2019-06-26 12:47] LABS: Basophils % (A) 1 %; Eosinophils # (A) 0.4 k/uL (0-0.7); Eosinophils % (A) 9 %; HCT 42.8 % (39.0-53.0); HGB 14.9 gm/dL (13.0-17.5); Lymphocytes # (A) 1.2 k/uL (1.0-4.8); Lymphocytes % (A) 23 %; MCHC 34.7 g/dL (31.0-37.0); MCV 92.2 fL (80.0-100.0); Mean Platelet Volume 8.9; Monocytes # (A) 0.2 k/uL (0-1.0); Monocytes % (A) 5 %; Neutrophils # (A) 2.9 k/uL (1.3-7.7); Neutrophils % (A) 60 %; Platelet Count 283 k/uL (150-450); RBC 4.65 m/uL (4.30-5.90); RDW 13.4 % (11.5-15.5); WBC 4.9 k/uL (3.8-10.6)
[2019-06-26 12:57] LABS: Appearance,Urine Clear (Clear); Bacteria,Urine Rare /hpf; Bilirubin,Urine Negative (Negative); Blood,Urine Small (Negative); Color,Urine Light Yellow; Glucose,Urine (UA) Negative (Negative); Hyaline Casts,Urine 23 /lpf (0-2); Ketones,Urine Trace (Negative); Leukocyte Esterase,Urine Negative (Negative); Nitrite,Urine Negative (Negative); PH, Urine 5.5 (5.0-8.0); Protein,Urine 1+ (Negative); Specific Gravity,Urine 1.013 (1.001-1.035); Urobilinogen,Urine <2.0 mg/dL (<2.0); WBC,Urine 1 /hpf (0-5)
[2019-06-26 13:01] LABS: Albumin 4.5 g/dL (3.5-5.0); Calcium 9.7 mg/dL (8.4-10.2); Total Bilirubin 0.5 mg/dL (0.2-1.3); Total Protein 7.6 g/dL (6.3-8.2)
--- NOTE | 2019-06-26 13:07 | XR ---
EXAMINATION TYPE: XR shoulder complete LT DATE OF EXAM: 06/26/2019 COMPARISON: NONE HISTORY: Pain TECHNIQUE: Three views are submitted. FINDINGS: There is spurring along the inferior margin of the humerus and AC joint mild arthropathy. Chronic tia earing bony density along the lower margin of the glenoid. No definite acute dislocation. There is a bony density in the Y-view adjacent to the spine of the scapula IMPRESSION: 1. Recommend CT of the left shoulder to assess bony density noted on the Y-view adjacent to the spine of the scapula for fracture. Correlate with point tenderness.
[2019-06-26 13:12] LABS: Amphetamine Screen,Urine Not Detected (NotDetected); Barbiturate Screen,Urine Not Detected (NotDetected); Benzodiazepines Screen,Urine Not Detected (NotDetected); Cocaine Screen,Urine Not Detected (NotDetected); Methadone Screen, Urine Not Detected (NotDetected); Opiate Screen,Urine Not Detected (NotDetected); Oxycodone Screen, Urine Not Detected (NotDetected); Phencyclidine Screen,Urine Not Detected (NotDetected); Tricyclic Antidepressant,Urine Not Detected (NotDetected); Urn Cannabinoid Scrn Detected (NotDetected)
--- NOTE | 2019-06-26 13:12 | ED ---
Seizure HPI - General Chief Complaint: Seizure Stated Complaint: seizure Time Seen by Provider: 06/26/19 12:08 Source: patient Mode of arrival: EMS Limitations: no limitations - History of Present Illness Initial Comments: 38-year-old male presenting today for chief complaint of seizure, left shoulder pain. Patient states that he has been noncompliant with his seizure medication he states often forgets his nightly dose which was instructed to take 300 mg daily at bedtime. Patient states he was at home with his children and he did not remember the events of the seizure. His daughter saw him sit down on the bottom step then fall back with entire body shaking. No incontinence per patient, no tongue pain. patient states she was groggy with nild headache after. On arrival patient is AAOx3 complaining of left shoulder pain. She states she has had multiple left shoulder dislocations in the past. Denies this feeling like a dislocation. Patietn denies an abrasion, lacerations or lumps of the scalp. Denies nausea, vomiting, visual changes, speech changes, weakness of the UE or LE, or sensation deficits. Remainign ROS (-). - Related Data Home Medications Medication Instructions Recorded Confirmed Zonisamide [Zonegran] 300 mg PO HS 11/22/18 06/26/19 Allergies Allergy/AdvReac Type Severity Reaction Status Date / Time Fish Containing Products AdvReac Nausea Verified 06/26/19 13:03 [Fish] Review of Systems ROS Statement: Those systems with pertinent positive or pertinent negative responses have been documented in the HPI. ROS Other: All systems not noted in ROS Statement are negative. Past Medical History Past Medical History: Asthma, Seizure Disorder Additional Past Medical History / Comment(s): Pt seen in ER 05/24/18 possible seizure/head injury - never followed up with neurp History of Any Multi-Drug Resistant Organisms: None Reported Past Surgical History: No Surgical Hx Reported Additional Past Surgical History / Comment(s): 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 Past Anesthesia/Blood Transfusion Reactions: No Reported Reaction Past Psychological History: No Psychological Hx Reported Smoking Status: Never smoker Past Alcohol Use History: None Reported Past Drug Use History: None Reported - Past Family History Father Family Medical History: CVA/TIA Additional Family Medical History / Comment(s): Father had a CVA. He is d eceased Mother Family Medical History: Cancer Additional Family Medical History / Comment(s): Mother of ovarian cancer. General Exam - General Exam Comments Initial Comments: General: The patient is awake and alert, in no distress, patient does not have any urine unclothing that is noted Eye: +3 mm pupils are equal, round and reactive to light, extra-ocular movements are intact. No nystagmus. There is normal conjunctiva bilaterally. No signs of icterus. Ears, nose, mouth and throat: There are moist mucous membranes and no oral lesions. No tongue laceration. Neck: The neck is supple, there is no tenderness or JVD. No midline tenderness to patient the cervical thoracic or lumbar spine patient has mild paravertebral tenderness of the cervical spine. Fully able to range at the cervical spine without difficulty. Patient has no raccoon or Brady sign Cardiovascular: There is a regular rate and rhythm. No murmur, rub or gallop is appreciated. Respiratory: Lungs are clear to auscultation, respirations are non-labored, breath sounds are equal. No wheezes, stridor, rales, or rhonchi. Gastrointestinal: Soft, non-distended, non-tender abdomen without masses or organomegaly noted. There is no rebound or guarding present. Musculoskeletal: Normal ROM, no tenderness. Strength 5/5. Sensation intact. Radial pulses equal bilaterally 2+. Patient is able to make the fingers crossed thumbs-up opposes the digit and thumb extension at the wrist bilaterally compartments are soft and compressible no gross deformity of the left shoulder patient is able to range at the shoulders equal patient complains of anterior posterior discomfort of the left shoulder Neurological: A&O x 3. CN II-XII intact, There are no obvious motor or sensory deficits. Coordination appears grossly intact. Speech is normal. Skin: Skin is warm and dry and no rashes or lesions are noted. Psychiatric: Cooperative, appropriate mood & affect, normal judgment. Limitations: no limitations Course Vital Signs 06/26/19 06/26/19 12:06 15:46 Temperature 98.2 F 98.2 F Pulse Rate 103 H 68 Respiratory 18 18 Rate Blood Pressure 128/94 114/99 O2 Sat by Pulse 99 98 Oximetry Medical Decision Making - Medical Decision Making Known noncompliant 38-year-old male with history of epilepsy. Patient follows neurology. Patient has been noncompliant with his medications, given a dose in the emergency department. Level sent for evaluation. Patient otherwise has no significant laboratory study findings mild elevation of creatine kinase which is consistent with seizure activity. Upon arrival patient's alert and oriented 3. No focal neurological deficits. Unsure if it had. CT of the brain and C- spine obtained given patient's daughter was not to obtained during history taking originally. No acute process. C-spine cleared after evaluation. Patient left shoulder . Dislocated patient able to range. Patient appears neurovascularly intact however there was a deformity noted of the scapula CT was recommended by radiology. CT revealed a glenoid fracture with medial displacem ent. I contacted orthopedic surgery recommended sling and follow-up in office. Otherwise at this time after discussing case multivitamin. Patient stable for discharge with both orthopedic and neurology follow-up. I discussed the importance of compliance patient verbalizes understanding and was discharged appearing well - Lab Data Result diagrams: 06/26/19 12:28 06/26/19 12:28 Lab Results 06/26/19 06/26/19 06/26/19 Range/Units 12:28 12:28 12:28 WBC 4.9 (3.8-10.6) k/uL RBC 4.65 (4.30-5.90) m/uL Hgb 14.9 (13.0-17.5) gm/dL Hct 42.8 (39.0-53.0) % MCV 92.2 (80.0-100.0) fL MCH 32.0 (25.0-35.0) pg MCHC 34.7 (31.0-37.0) g/dL RDW 13.4 (11.5-15.5) % Plt Count 283 (150-450) k/uL Neutrophils % 60 % Lymphocytes % 23 % Monocytes % 5 % Eosinophils % 9 % Basophils % 1 % Neutrophils # 2.9 (1.3-7.7) k/uL Lymphocytes # 1.2 (1.0-4.8) k/uL Monocytes # 0.2 (0-1.0) k/uL Eosinophils # 0.4 (0-0.7) k/uL Basophils # 0.0 (0-0.2) k/uL Sodium 141 (137-145) mmol/L Potassium 5.0 (3.5-5.1) mmol/L Chloride 109 H (98-107) mmol/L Carbon Dioxide 20 L (22-30) mmol/L Anion Gap 12 mmol/L BUN 10 (9-20) mg/dL Creatinine 1.37 H (0.66-1.25) mg/dL Est GFR (CKD-EPI)AfAm 76 (>60 ml/min/1.73 sqM) Est GFR (CKD-EPI)NonAf 66 (>60 ml/min/1.73 sqM) Glucose 77 (74-99) mg/dL Calcium 9.7 (8.4-10.2) mg/dL Total Bilirubin 0.5 (0.2-1.3) mg/dL AST 27 (17-59) U/L ALT 24 (4-49) U/L Alkaline Phosphatase 65 (38-126) U/L Creatine Kinase 205 H (55-170) U/L Total Protein 7.6 (6.3-8.2) g/dL Albumin 4.5 (3.5-5.0) g/dL Urine Color Light Yellow Urine Appearance Clear (Clear) Urine pH 5.5 (5.0-8.0) Ur Specific [place] 1.013 (1.001-1.035) Urine Protein 1+ H (Negative) Urine Glucose (UA) Negative (Negative) Urine Ketones Trace H (Negative) Urine Blood Small H (Negative) Urine Nitrite Negative (Negative) Urine Bilirubin Negative (Negative) Urine Urobilinogen <2.0 (<2.0) mg/dL Ur Leukocyte Esterase Negative (Negative) Urine WBC 1 (0-5) /hpf Urine Bacteria Rare H (None) /hpf Hyaline Casts 23 H (0-2) /lpf Urine Opiates Screen Not Detected (NotDetected) Ur Oxycodone Screen Not Detected (NotDetected) Urine Methadone Screen Not Detected (NotDetected) Ur Propoxyphene Screen Not Detected (NotDetected) Ur Barbiturates Screen Not Detected (NotDetected) U Tricyclic Antidepress Not Detected (NotDetected) Ur Phencyclidine Scrn Not Detected (NotDetected) Ur Amphetamines Screen Not Detected (NotDetected) U Methamphetamines Scrn Not Detected (NotDetected) U Benzodiazepines Scrn Not Detected (NotDetected) Urine Cocaine Screen Not Detected (NotDetected) U Marijuana (THC) Screen Detected H (NotDetected) Disposition Clinical Impression: Seizure, Glenoid fracture of shoulder, Left shoulder pain Disposition: HOME SELF-CARE Condition: Good Instructions (If sedation given, give patient instructions): Recurrent Seizures in Adults (ED) Additional Instructions: Please use medication as discussed. Please follow-up with neurology, take medications as directed, follow-up with orthopedics and wear sling for comfort, refrain from significant range of motion of the left shoulder secondary to possible dislocation. Please return to emergency room if the symptoms increase or worsen or for any other concerns. Is patient prescribed a controlled substance at d/c from ED?: No Referrals: None,Stated [Primary Care Provider] - 1-2 days Sandrine Saucedo PAC [PHYSICIAN [facility] TECHNICIAN] - 1-2 days Time of Disposition: 15:30
--- NOTE | 2019-06-26 13:43 | CT ---
EXAMINATION TYPE: CT shoulder LT wo con DATE OF EXAM: 06/26/2019 COMPARISON: Plain film same date HISTORY: Possible seizure today with fall. Left shoulder pain CT DLP: 501.9 mGycm Automated exposure control for dose reduction was used. Helical acquisition through the left shoulder . Coronal sagittal reconstructions. FINDINGS: Posterior glenoid fracture shows posterior and medial displacement. Suspect there is possible Hill-Sa chs deformity of the proximal humerus. Correlate for history of shoulder dislocation. IMPRESSION: POSTERIOR BONY GLENOID FRACTURE WITH DISPLACEMENT DESCRIBED.
[2019-06-26] MEDS ORDERED: ZONISAMIDE 100 MG CAP PO STA (14:26)
--- NOTE | 2019-06-26 14:53 | CT ---
EXAMINATION TYPE: CT brain c-spine wo con DATE OF EXAM: 06/26/2019 COMPARISON: CT brain and cervical spine November 22, 2018 HISTORY: Seizure injury today with headache and neck pain CT DLP: 1478.1 mGycm. Automated Exposure Control for Dose Reduction was Utilized. TECHNIQUE: CT scan of the head and cervical spine are performed without contrast. FINDINGS: There is no acute intracranial hemorrhage, mass effect, or midline shift identified. Mild atrophy superiorly redemonstrated. The ventricles and sulci are within normal limits in size. Gonzalez-w lala matter differentiation is preserved. Calvarium is intact. Some dural calcification is redemonstr ated The globes are intact and the visualized sinuses are clear. Cervical spine is visualized in its entirety from C1 through upper thoracic levels and demonstrates r eversal of normal cervical curvature without evidence of acute fracture or dislocation. Prevertebral soft tissue appears remains normal limits. The C1-C2 articulation is within normal limits on the co griffin images. Vertebral body heights and disc space heights are maintained. Spinal canal is preserve d. Axial images are unremarkable. Thyroid gland remains normal in size. Lung apices show no pneumotho rax. IMPRESSION: 1. There is no acute fracture or dislocation evident in the cervical spine. 2. No acute intracranial hemorrhage, mass effect, or midline shift is seen.
[2019-06-26 15:52] VITALS: BP 114/99; PULSE 68
== END 2019-06-26 15:52 | disposition home or self-care (01) ==
LOC: EC 12:05
DX: G40.909 Epilepsy, unspecified, not intractable, without status epilepticus (principal); S42.142A Displaced fracture of glenoid cavity of scapula, left shoulder, initial encounter for closed fracture; T42.6X6A Underdosing of other antiepileptic and sedative-hypnotic drugs, initial encounter; Z91.138 Patient's unintentional underdosing of medication regimen for other reason; R79.89 Other specified abnormal findings of blood chemistry; R51 Headache; Z91.013 Allergy to seafood; Z79.899 Other long term (current) drug therapy; W10.9XXA Fall (on) (from) unspecified stairs and steps, initial encounter; Y93.89 Activity, other specified
CPT/HCPCS: 36415; 70450; 72125; 80053; 80203; 80306; 81001; 82550; 85025; 99284

== ENCOUNTER 2019-12-29 16:52 | Observation (INO) | payer BC ==
[2019-12-29] MEDS ORDERED: SODIUM CHLORIDE 0.9% 1,000 ML IV STA (16:54)
[2019-12-29 17:14] LABS: Basophils # (A) 0.1 k/uL (0-0.2); Basophils % (A) 1 %; Eosinophils # (A) 0.5 k/uL (0-0.7); Eosinophils % (A) 5 %; HCT 48.4 % (39.0-53.0); HGB 15.4 gm/dL (13.0-17.5); Lymphocytes # (A) 4.4 k/uL (1.0-4.8); Lymphocytes % (A) 46 %; MCHC 31.8 g/dL (31.0-37.0); MCV 97.3 fL (80.0-100.0); Mean Platelet Volume 9.6; Monocytes # (A) 0.6 k/uL (0-1.0); Monocytes % (A) 6 %; Neutrophils # (A) 3.8 k/uL (1.3-7.7); Neutrophils % (A) 39 %; Platelet Count 315 k/uL (150-450); RBC 4.98 m/uL (4.30-5.90); RDW 13.5 % (11.5-15.5); WBC 9.6 k/uL (3.8-10.6)
[2019-12-29 17:20] LABS: Albumin 4.9 g/dL (3.5-5.0); Calcium 9.9 mg/dL (8.4-10.2); Potassium 3.9 mmol/L (3.5-5.1); Total Bilirubin 0.4 mg/dL (0.2-1.3); Total Protein 7.9 g/dL (6.3-8.2)
--- NOTE | 2019-12-29 17:39 | ED ---
General Adult HPI - General Chief complaint: Seizure Stated complaint: seizures Time Seen by Provider: 12/29/19 16:54 Source: EMS, RN notes reviewed, old records reviewed Mode of arrival: EMS Limitations: altered mental status, physical limitation - History of Present Illness Initial comments: 31-year-old male history of seizure disorder, unknown what medications this patient is currently on. He had a seizure this afternoon lasting several minutes. History is obtained from EMS who is on certain of the exact duration. He does have previous seizure disorder. He was found in the bathroom on the floor, uncertain if there was any trauma. Patient unable to contribute to the history, he is postictal period - Related Data Home Medications Medication Instructions Recorded Confirmed Zonisamide [Zonegran] 300 mg PO HS 11/22/18 06/26/19 Allergies Allergy/AdvReac Type Severity Reaction Status Date / Time Fish Containing Products AdvReac Nausea Verified 06/26/19 13:03 [Fish] Review of Systems ROS Statement: Those systems with pertinent positive or pertinent negative responses have been documented in the HPI. ROS Other: All systems not noted in ROS Statement are negative. Past Medical History Past Medical History: Asthma, Seizure Disorder Additional Past Medical History / Comment(s): Pt seen in ER 05/24/18 possible seizure/head injury - never followed up with neurp History of Any Multi-Drug Resistant Organisms: None Reported Past Surgical History: No Surgical Hx Reported Additional Past Surgical History / Comment(s): 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 Past Anesthesia/Blood Transfusion Reactions: No Reported Reaction Past Psychological History: No Psychological Hx Reported Past Alcohol Use History: None Reported Past Drug Use History: None Reported - Past Family History Father Family Medical History: CVA/TIA Additional Family Medical History / Comment(s): Father had a CVA. He is Mother Family Medical History: Cancer Additional Family Medical History / Comment(s): Mother of ovarian cancer. General Exam Limitations: altered mental status, physical limitation General appearance: lethargic Head exam: Present: atraumatic, normocephalic Eye exam: Present: normal appearance, PERRL ENT exam: Present: mucous membranes dry Neck exam: Present: normal inspection. Absent: tenderness, meningismus Respiratory exam: Present: normal lung sounds bilaterally. Absent: respiratory distress, wheezes Cardiovascular Exam: Present: normal rhythm, tachycardia GI/Abdominal exam: Present: soft. Absent: distended, tenderness, guarding Extremities exam: Present: normal inspection, normal capillary refill. Absent: pedal edema Neurological exam: Absent: alert, oriented X3, motor sensory deficit (Patient mo ving all extremities symmetrically, no external signs of trauma) Skin exam: Present: warm, diaphoretic Course Vital Signs 12/29/19 17:01 Temperature 97.4 F L Pulse Rate 107 H Respiratory 16 Rate Blood Pressure 120/80 O2 Sat by Pulse 98 Oximetry - Reevaluation(s) Reevaluation #1: 12/29/19 18:00 Patient is on Zonismide 400 mg which was recently increased. EKG Findings - EKG Comments: EKG Findings:: EKG: Sinus tachycardia, rate of 107, ND interval 140, QRS duration 84, QTC [address] segment elevation Medical Decision Making - Medical Decision Making 39-year-old male presenting postictal status post tonic-clonic seizure with history of seizure disorder. Patient is unable to contribute initial history. There was question of trauma, head CT is obtained, negative for intracranial hemorrhage, no significant change. Patient has normal CBC, he is acidotic with a CO2 of 70 suspect this is from lactic acidosis from seizure. He's given IV hydration in the emergency department, he is loaded with Keppra as he is previously been on Zonegran with increasing doses and has continued to have seizure. He is additionally given 1 mg of Ativan. He is placed in seizure precautions. He has a prolonged postictal period will be admitted for close mo nitoring, neurology consultation. - Lab Data Result diagrams: 12/29/19 17:05 12/29/19 17:05 Lab Results 12/29/19 12/29/19 Range/Units 17:05 17:05 WBC 9.6 (3.8-10.6) k/uL RBC 4.98 (4.30-5.90) m/uL Hgb 15.4 (13.0-17.5) gm/dL Hct 48.4 (39.0-53.0) % MCV 97.3 (80.0-100.0) fL MCH 31.0 (25.0-35.0) pg MCHC 31.8 (31.0-37.0) g/dL RDW 13.5 (11.5-15.5) % Plt Count 315 (150-450) k/uL Neutrophils % 39 % Lymphocytes % 46 % Monocytes % 6 % Eosinophils % 5 % Basophils % 1 % Neutrophils # 3.8 (1.3-7.7) k/uL Lymphocytes # 4.4 (1.0-4.8) k/uL Monocytes # 0.6 (0-1.0) k/uL Eosinophils # 0.5 (0-0.7) k/uL Basophils # 0.1 (0-0.2) k/uL Sodium 142 (137-145) mmol/L Potassium 3.9 (3.5-5.1) mmol/L Chloride 109 H (98-107) mmol/L Carbon Dioxide 7 L* (22-30) mmol/L Anion Gap 26 mmol/L BUN 12 (9-20) mg/dL Creatinine 1.83 H (0.66-1.25) mg/dL Est GFR (CKD-EPI)AfAm 53 (>60 ml/min/1.73 sqM) Est GFR (CKD-EPI)NonAf 46 (>60 ml/min/1.73 sqM) Glucose 158 H (74-99) mg/dL Calcium 9.9 (8.4-10.2) mg/dL Total Bilirubin 0.4 (0.2-1.3) mg/dL AST 20 (17-59) U/L ALT 22 (4-49) U/L Alkaline Phosphatase 57 (38-126) U/L Total Protein 7.9 (6.3-8.2) g/dL Albumin 4.9 (3.5-5.0) g/dL Disposition Clinical Impression: Generalized seizure, Postictal state Disposition: ADMITTED IP TO THIS HOSP Condition: Stable Is patient prescribed a controlled substance at d/c from ED?: No Referrals: None,Stated [Primary Care Provider] - 1-2 days Decision to Admit Reason: Admit from EC Decision Date: 12/29/19 Decision Time: 18:17
--- NOTE | 2019-12-29 17:43 | CT ---
EXAMINATION TYPE: CT brain wo con DATE OF EXAM: 12/29/2019 COMPARISON: 06/26/2019 HISTORY: ams, seizure CT DLP: 2372.4 mGycm Automated exposure control for dose reduction was used. Exam performed without contrast. Ventricles and sulci appear normal. There is no mass effect nor midline shift. There is no sign of in tracranial hemorrhage. The calvarium is intact. IMPRESSION: Negative unenhanced head CT scan. No change.
[2019-12-29] MEDS ORDERED: SODIUM CHLORIDE 0.9% 500 ML 500 ML IV ONE (18:01)
[2019-12-29] MEDS ORDERED: LORazepam 2 MG/ML INJ IV STA (18:01)
[2019-12-29] MEDS ORDERED: levETIRAcetam IV 1,500 MG in SALINE 1 100ML.BAG IVPB STA (18:01)
[2019-12-29] MEDS ORDERED: LORazepam 2 MG/ML INJ IV PRN (18:02)
[2019-12-29] MEDS ORDERED: NALOXONE 0.4 MG/ML 1 ML VIAL IV PRN (18:03)
[2019-12-29] MEDS ORDERED: ACETAMINOPHEN TAB 325 MG TAB PO PRN (18:03)
[2019-12-29] MEDS: SODIUM CHLORIDE 0.9% 1,000 ML IV SCH (19:03)
[2019-12-29 22:01] LABS: Appearance,Urine Clear (Clear); Bilirubin,Urine Negative (Negative); Blood,Urine Negative (Negative); Color,Urine Yellow; Glucose,Urine (UA) Negative (Negative); Ketones,Urine Trace (Negative); Leukocyte Esterase,Urine Negative (Negative); Nitrite,Urine Negative (Negative); PH, Urine 5.5 (5.0-8.0); Protein,Urine Trace (Negative); Specific Gravity,Urine 1.016 (1.001-1.035); Urobilinogen,Urine <2.0 mg/dL (<2.0)
[2019-12-29 22:16] LABS: Amphetamine Screen,Urine Not Detected (NotDetected); Barbiturate Screen,Urine Not Detected (NotDetected); Benzodiazepines Screen,Urine Not Detected (NotDetected); Cocaine Screen,Urine Not Detected (NotDetected); Methadone Screen, Urine Not Detected (NotDetected); Opiate Screen,Urine Not Detected (NotDetected); Oxycodone Screen, Urine Not Detected (NotDetected); Phencyclidine Screen,Urine Not Detected (NotDetected); Tricyclic Antidepressant,Urine Not Detected (NotDetected); Urn Cannabinoid Scrn Detected (NotDetected)
[2019-12-30 08:04] LABS: Albumin 3.4 g/dL (3.5-5.0); Calcium 8.4 mg/dL (8.4-10.2); Magnesium 2.1 mg/dL (1.6-2.3); Potassium 4.1 mmol/L (3.5-5.1); Total Bilirubin 0.6 mg/dL (0.2-1.3)
[2019-12-30 08:06] LABS: Basophils % (A) 0 %; Eosinophils # (A) 0.2 k/uL (0-0.7); Eosinophils % (A) 2 %; HCT 39.8 % (39.0-53.0); HGB 13.8 gm/dL (13.0-17.5); Lymphocytes # (A) 1.3 k/uL (1.0-4.8); Lymphocytes % (A) 16 %; MCH 32.4 pg (25.0-35.0); MCHC 34.7 g/dL (31.0-37.0); MCV 93.1 fL (80.0-100.0); Mean Platelet Volume 9.7; Monocytes # (A) 0.4 k/uL (0-1.0); Monocytes % (A) 5 %; Neutrophils # (A) 6.2 k/uL (1.3-7.7); Neutrophils % (A) 76 %; Platelet Count 236 k/uL (150-450); RBC 4.27 m/uL (4.30-5.90); RDW 13.3 % (11.5-15.5); WBC 8.2 k/uL (3.8-10.6)
[2019-12-30] MEDS: levETIRAcetam 500 MG TAB PO SCH ×2 (08:07→20:13)
[2019-12-30] MEDS: SODIUM CHLORIDE 0.9% 1,000 ML IV SCH ×2 (08:09→18:19)
--- NOTE | 2019-12-30 10:47 | P.HPIM ---
History of Present Illness H&P Date: 12/30/19 Chief Complaint: Seizures. Patient is a 39-year-old male with a known history of seizure disorder, history of head injury, asthma, currently everyday smoker marijuana use was brought to the ER after he had a seizure at home yesterday afternoon lasting several minutes. Patient was postictal for the time EMS arrived. Evidently patient was found in the bathroom floor by his . Patient has been taking his medications. His Zonegran dose was increased recently to 40 mg at bedtime about 3 weeks ago. Patient is awake alert oriented x3 currently but states he feels weak still. No complaints of fever or chills. No headache. No nausea vomiting abdominal pain or diarrhea. No dysuria or hematuria. No fever no chills. Denied any no recent other illnesses. According to his patient has been having more frequent episodes of seizures since then. Patient's UDS is also positive for marijuana. Laboratory data showed WBC 9.6, hemoglobin 15.4 and platelets 315 BUN 12 and creatinine 1.83 Sodium 142, potassium 3.9, chloride 109 and bicarb level is 7 on admission UA negative infection and UDS is positive for marijuana Review of Systems Constitutional: Patient denies any fever or chills . generalized weakness. No weight loss. Abdomen: Patient denied nausea vomiting and diarrhea and abdominal pain. Cardiovascular: Patient denies any chest pain or short of breath no palpitations. Respiratory: patient denied any cough is from production. No shortness of breath Neurologic: Patient denied any numbness or tingling headache. Musculoskeletal: Patient denies any complaints of joint swelling or deformity. Skin: Negative Psychiatric: Negative Endocrine: No heat or cold intolerance. No recent weight gain. Genitourinary: No dysuria or hematuria. All other 14 point ROS negative except the above Past Medical History Past Medical History: Asthma, Seizure Disorder Additional Past Medical History / Comment(s): Pt seen in ER 05/24/18 possible seizure/head injury History of Any Multi-Drug Resistant Organisms: None Reported Past Surgical History: No Surgical Hx Reported Additional Past Surgical History / Comment(s): 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 Past Anesthesia/Blood Transfusion Reactions: No Reported Reaction Past Psychological History: No Psychological Hx Reported Additional Psychological History / Comment(s): Pt resides with his spouse and their 4 children. He is independent. Smoking Status: Current some day smoker Past Alcohol Use History: None Reported Past Drug Use History: None Reported - Past Family History Father Family Medical History: CVA/TIA Additional Family Medical History / Comment(s): Father had a CVA. He is Mother Family Medical History: Cancer Additional Family Medical History / Comment(s): Mother of ovarian cancer. Medications and Allergies Home Medications Medication Instructions Recorded Confirmed Type Zonisamide [Zonegran] 400 mg PO HS 11/22/18 12/29/19 History Allergies Allergy/AdvReac Type Severity Reaction Status Date / Time Fish Containing Products AdvReac Nausea Verified 12/29/19 19:27 [Fish] Physical Exam Vitals: Vital Signs Temp Pulse Pulse Resp BP BP Pulse Ox 12/30/19 05:00 98.8 F 77 18 104/65 99 12/29/19 21:00 97.2 F L 71 18 124/76 100 12/29/19 19:05 98 F 73 18 132/90 98 12/29/19 18:44 82 18 124/84 100 12/29/19 17:01 97.4 F L 107 H 16 120/80 98 Intake and Output 12/29/19 12/30/19 12/30/19 22:59 06:59 14:59 Intake Total 900 Balance 900 Intake: Intake, IV Titration 900 Amount Sodium Chloride 0.9% 1, 900 000 ml @ 75 mls/hr IV . [id number] [facility] Rx#:[id number] Other: Voiding Method Toilet Urinal # Voids 1 Weight 86.183 kg PHYSICAL EXAMINATION: Patient is lying in the bed comfortably, no acute distress, awake alert and oriented.. HEENT: Normocephalic. Neck is supple. Pupils reactive. Nostrils clear. Oral cavity is moist. Ears reveal no drainage. Neck reveals no JVD, carotid bruits, or thyromegaly. CHEST EXAMINATION: Trachea is central. Symmetrical expansion. Lung hinds clear to auscultation and percussion. CARDIAC: Normal S1, S2 with no gallops. No murmurs ABDOMEN: Soft. Bowel sounds normal. No organomegaly. No abdominal bruits. Extremities: reveal no edema. No clubbing or cyanosis Neurologically awake, alert, oriented x3 with well-coordinated movements. No focal deficits noted Skin: No rash or skin lesions. Psychiatric: Coperative. Nonsuicidal Musculoskeletal: No joint swelling or deformity. Normal range of motion. Results CBC & Chem 7: 12/30/19 06:33 12/30/19 06:33 Labs: Abnormal Lab Results - Last 24 Hours (Table) 12/29/19 12/29/19 12/30/19 Range/Units 17:05 21:40 06:33 RBC 4.27 L (4.30-5.90) m/uL Chloride 109 H (98-107) mmol/L Carbon Dioxide 7 L* (22-30) mmol/L Creatinine 1.83 H (0.66-1.25) mg/dL Glucose 158 H (74-99) mg/dL Total Protein (6.3-8.2) g/dL Albumin (3.5-5.0) g/dL Urine Protein Trace H (Negative) Urine Ketones Trace H (Negative) U Marijuana (THC) Screen Detected H (NotDetected) 12/30/19 Range/Units 06:33 RBC (4.30-5.90) m/uL Chloride 115 H (98-107) mmol/L Carbon Dioxide 20 L (22-30) mmol/L Creatinine 1.30 H (0.66-1.25) mg/dL Glucose (74-99) mg/dL Total Protein 6.0 L (6.3-8.2) g/dL Albumin 3.4 L (3.5-5.0) g/dL Urine Protein (Negative) Urine Ketones (Negative) U Marijuana (THC) Screen (NotDetected) Thrombosis Risk Factor Assmnt - DVT/VTE Prophylaxis DVT/VTE Prophylaxis: Pharmacologic Prophylaxis ordered - Choose All That Apply Any of the Below Risk Factors Present?: No Other Risk Factors: No Other congenital or acquired thrombophilia - If yes, enter type in comment: No Thrombosis Risk Factor Assessment Level: Very Low Risk Assessment and Plan Assessment: Acute seizure episode with prolonged postictal state Seizure disorder currently on Zonegran 40 mg at bedtime at home Marijuana use Severe metabolic acidosis on admission improved now Acute kidney injury most likely prerenal with creatinine 1.83 came down to 1.3 now Asthma stable Currently everyday smoker History head injury DVT prophylaxis Heparin subcu Plan: Patient will be continued on seizure precautions and fall precautions. Continue with IV hydration and started on Keppra currently. Neurology was consulted. Discussed with his and the patient regarding his medical condition and updated. Patient has been counseled extensively for marijuana abstinence. Time with Patient: Greater than 30
[2019-12-30 20:25] VITALS: BP 127/75; PULSE 77; RESP 16; TEMP 98.1
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
== END 2019-12-30 21:24 | disposition home or self-care (01) ==
LOC: EC 16:52 → 5NMEDONC 18:03 → INTOOBSV 18:03 → UNDODISIN 12-30 21:24
PROVIDERS: ADMIT Hospitalist; ATTEND Hospitalist
DX: G40.409 Other generalized epilepsy and epileptic syndromes, not intractable, without status epilepticus (principal); E87.2 Acidosis; N17.9 Acute kidney failure, unspecified; J45.909 Unspecified asthma, uncomplicated; F12.90 Cannabis use, unspecified, uncomplicated; F17.200 Nicotine dependence, unspecified, uncomplicated; R00.0 Tachycardia, unspecified; Z03.818 Encounter for observation for suspected exposure to other biological agents ruled out; Z71.51 Drug abuse counseling and surveillance of drug abuser; Z79.899 Other long term (current) drug therapy; Z91.013 Allergy to seafood; Z98.890 Other specified postprocedural states; Z87.438 Personal history of other diseases of male genital organs; Z87.820 Personal history of traumatic brain injury; Z82.3 Family history of stroke; Z80.41 Family history of malignant neoplasm of ovary
CPT/HCPCS: 96361 ×3; 96374; 99285; 36415; 93005; 80053 ×2; 83735; 85025 ×2; 81003; 80306; 70450; G0378 ×2; U0003; J2060; J1953; 96365; 96375

== ENCOUNTER 2020-01-30 10:19 | Emergency (ER) | payer BC ==
[2020-01-30] MEDS ORDERED: levETIRAcetam IV 500 MG in SODIUM CHLORIDE 0.9% 100 ML IVPB STA (10:40)
[2020-01-30] MEDS ORDERED: SODIUM CHLORIDE 0.9% 1,000 ML IV STA (10:40)
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
[2020-01-30 11:01] LABS: Basophils # (A) 0.1 k/uL (0-0.2); Basophils % (A) 1 %; Eosinophils # (A) 0.6 k/uL (0-0.7); Eosinophils % (A) 8 %; HCT 46.5 % (39.0-53.0); HGB 14.9 gm/dL (13.0-17.5); Lymphocytes # (A) 2.7 k/uL (1.0-4.8); Lymphocytes % (A) 34 %; MCH 30.6 pg (25.0-35.0); MCV 95.5 fL (80.0-100.0); Mean Platelet Volume 9.1; Monocytes # (A) 0.4 k/uL (0-1.0); Monocytes % (A) 5 %; Neutrophils % (A) 50 %; Platelet Count 283 k/uL (150-450); RBC 4.87 m/uL (4.30-5.90); RDW 13.7 % (11.5-15.5); WBC 8.1 k/uL (3.8-10.6)
[2020-01-30 11:16] LABS: Albumin 4.3 g/dL (3.5-5.0); Calcium 9.4 mg/dL (8.4-10.2); Potassium 4.8 mmol/L (3.5-5.1); Total Bilirubin 0.4 mg/dL (0.2-1.3); Total Protein 7.1 g/dL (6.3-8.2)
--- NOTE | 2020-01-30 11:17 | CT ---
EXAMINATION TYPE: CT brain wo con DATE OF EXAM: 01/30/2020 COMPARISON: CT brain December 29, 2019 HISTORY: Seizure activity. CT DLP: 1123.4 mGycm. Automated Exposure Control for Dose Reduction was Utilized. TECHNIQUE: CT scan of the head is performed without contrast. FINDINGS: There is no acute intracranial hemorrhage, mass effect, or midline shift identified. The ventricles and sulci are within normal limits in size. Gonzalez-white matter differentiation is maintai luis. The globes are intact and the visualized sinuses are clear. IMPRESSION: No acute intracranial hemorrhage or midline shift is seen. No significant change from pr ior.
[2020-01-30] MEDS ORDERED: ACETAMINOPHEN TAB 500 MG TAB PO STA (12:37)
[2020-01-30] MEDS ORDERED: KETOROLAC 15 MG/ML 1 ML VIAL IVP STA (12:37)
[2020-01-30 13:16] LABS: Appearance,Urine Clear (Clear); Bilirubin,Urine Negative (Negative); Blood,Urine Negative (Negative); Color,Urine Light Yellow; Glucose,Urine (UA) Negative (Negative); Ketones,Urine Negative (Negative); Leukocyte Esterase,Urine Negative (Negative); Nitrite,Urine Negative (Negative); Protein,Urine Trace (Negative); Specific Gravity,Urine 1.012 (1.001-1.035); Urobilinogen,Urine <2.0 mg/dL (<2.0)
[2020-01-30 13:19] VITALS: BP 122/76; PULSE 70; RESP 18; TEMP 97.6
[2020-01-30 13:45] LABS: Amphetamine Screen,Urine Not Detected (NotDetected); Barbiturate Screen,Urine Not Detected (NotDetected); Benzodiazepines Screen,Urine Not Detected (NotDetected); Cocaine Screen,Urine Not Detected (NotDetected); Methadone Screen, Urine Not Detected (NotDetected); Opiate Screen,Urine Not Detected (NotDetected); Oxycodone Screen, Urine Not Detected (NotDetected); Phencyclidine Screen,Urine Not Detected (NotDetected); Tricyclic Antidepressant,Urine Not Detected (NotDetected); Urn Cannabinoid Scrn Detected (NotDetected)
== END 2020-01-30 13:20 | disposition home or self-care (01) ==
LOC: EC 10:19
DX: R56.9 Unspecified convulsions (principal); F17.200 Nicotine dependence, unspecified, uncomplicated; Z91.013 Allergy to seafood
CPT/HCPCS: 36415; 93005; 80053; 85025; 81003; 80306; 70450; 99285; 96365; 96375; 96361; J1953; J1885

== ENCOUNTER 2020-02-15 15:11 | Emergency (ER) | payer BC ==
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
[2020-02-15] MEDS ORDERED: ONDANSETRON 4 MG/2 ML VIAL IVP STA ×2 (15:36→17:12)
[2020-02-15] MEDS ORDERED: SODIUM CHLORIDE 0.9% 1,000 ML IV STA (15:36)
[2020-02-15] MEDS ORDERED: MAG HYDROX/AL HYDROX/SIMETH 30 ML, HYOSCYAMINE ELIXIR 10 ML, LIDOCAINE VISCOUS 2% 10 ML PO STA ×3 (15:37)
[2020-02-15 16:06] LABS: Basophils % (A) 0 %; Eosinophils # (A) 0.2 k/uL (0-0.7); Eosinophils % (A) 3 %; HCT 53.1 % (39.0-53.0); HGB 17.6 gm/dL (13.0-17.5); Lymphocytes % (A) 12 %; MCH 30.7 pg (25.0-35.0); MCHC 33.2 g/dL (31.0-37.0); MCV 92.4 fL (80.0-100.0); Mean Platelet Volume 8.9; Monocytes # (A) 0.2 k/uL (0-1.0); Monocytes % (A) 3 %; Neutrophils # (A) 6.6 k/uL (1.3-7.7); Neutrophils % (A) 81 %; Platelet Count 329 k/uL (150-450); RBC 5.74 m/uL (4.30-5.90); RDW 13.2 % (11.5-15.5); WBC 8.1 k/uL (3.8-10.6)
[2020-02-15 16:15] LABS: Albumin 5.3 g/dL (3.5-5.0); Calcium 10.8 mg/dL (8.4-10.2); Potassium 4.2 mmol/L (3.5-5.1); Total Bilirubin 0.9 mg/dL (0.2-1.3); Total Protein 8.9 g/dL (6.3-8.2)
[2020-02-15] MEDS ORDERED: SODIUM CHLORIDE 0.9% 1,000 ML IV ONE (16:18)
[2020-02-15] MEDS ORDERED: diphenhydrAMINE 50 MG/ML 1 ML VIAL IVP STA (18:25)
[2020-02-15] MEDS ORDERED: METOCLOPRAMIDE 5 MG/ML 2 ML VIAL IVP STA (18:25)
[2020-02-15 19:43] VITALS: BP 141/84; PULSE 70; RESP 16; TEMP 98.2
== END 2020-02-15 19:39 | disposition home or self-care (01) ==
LOC: EC 15:11
DX: R10.13 Epigastric pain (principal); R11.2 Nausea with vomiting, unspecified; R19.7 Diarrhea, unspecified; Z91.013 Allergy to seafood; F17.200 Nicotine dependence, unspecified, uncomplicated
CPT/HCPCS: 36415; 80053; 83690; 85025; 99284; 96374; 96375 ×2; 96376; 96361 ×2; J1200; J2765; J2405

== ENCOUNTER 2020-02-17 04:26 | Emergency (ER) | payer BC ==
[2020-02-17 04:36] VITALS: RESP 18
[2020-02-17] MEDS ORDERED: METOCLOPRAMIDE 5 MG/ML 2 ML VIAL IVP STA (04:55)
[2020-02-17] MEDS ORDERED: SODIUM CHLORIDE 0.9% 500 ML 500 ML IV STA (04:55)
[2020-02-17 05:09] LABS: Basophils % (A) 0 %; Eosinophils # (A) 0.2 k/uL (0-0.7); Eosinophils % (A) 2 %; HCT 46.4 % (39.0-53.0); HGB 15.8 gm/dL (13.0-17.5); Lymphocytes # (A) 1.5 k/uL (1.0-4.8); Lymphocytes % (A) 13 %; MCH 31.1 pg (25.0-35.0); MCV 91.5 fL (80.0-100.0); Monocytes # (A) 0.5 k/uL (0-1.0); Monocytes % (A) 5 %; Neutrophils # (A) 9.4 k/uL (1.3-7.7); Neutrophils % (A) 80 %; Platelet Count 285 k/uL (150-450); RBC 5.07 m/uL (4.30-5.90); RDW 13.2 % (11.5-15.5); WBC 11.8 k/uL (3.8-10.6)
[2020-02-17 05:19] LABS: Albumin 4.5 g/dL (3.5-5.0); C Reactive Protein 7.3 mg/L (<10.0); Calcium 10.4 mg/dL (8.4-10.2); Potassium 3.8 mmol/L (3.5-5.1); Total Bilirubin 1.1 mg/dL (0.2-1.3); Total Protein 7.3 g/dL (6.3-8.2)
[2020-02-17] MEDS ORDERED: DICYCLOMINE 20 MG TAB PO STA (05:55)
[2020-02-17 06:05] LABS: Appearance,Urine Clear (Clear); Bilirubin,Urine 1+ (Negative); Blood,Urine Negative (Negative); Color,Urine Yellow; Glucose,Urine (UA) Negative (Negative); Ketones,Urine 3+ (Negative); Leukocyte Esterase,Urine Negative (Negative); Mucus,Urine Many /hpf; Nitrite,Urine Negative (Negative); Protein,Urine 1+ (Negative); RBC,Urine 1 /hpf (0-5); Specific Gravity,Urine 1.036 (1.001-1.035); WBC,Urine 1 /hpf (0-5)
--- NOTE | 2020-02-17 06:49 | CT ---
EXAMINATION TYPE: CT abdomen pelvis wo con DATE OF EXAM: 02/17/2020 COMPARISON: None HISTORY: acute abd pain CT DLP: 468.6 mGycm Automated exposure control for dose reduction was used. Exam performed from the diaphragm to the floor the pelvis with no contrast. Lung bases are clear. There is no pleural effusion. Heart size is normal. There is no pericardial eff usion. Liver spleen stomach pancreas gallbladder appear normal. Bile ducts are not dilated. There is no adre nal mass. Kidneys have normal size. There is no hydronephrosis. Ureters are not dilated. There is no retroperitoneal adenopathy. There is no inguinal hernia. Bladder distends smoothly. There is no free fluid in the pelvis. There is minimal prostate calcification. There is no evidence of a pelvic mass. There is minimal pelvic calcification that could be in the seminal vesicles. This could relate to old inflammatory disease. The appendix is posterior and inferior and appears normal. There is no mesenteric edema. There is no ascites. There is no evidence of free air. There is no evid ence of a bowel obstruction. Lumbar vertebra have normal alignment. Disc spaces are fairly normal. There is no compression fractur e. Bony pelvis is intact. Hip joints appear normal. IMPRESSION: Negative CT scan abdomen and pelvis. Normal appendix.
[2020-02-17] MEDS ORDERED: PROMETHAZINE INJ 25 MG in SODIUM CHLORIDE 0.9% 50 ML IVPB STA (06:59)
[2020-02-17] MEDS ORDERED: MORPHINE SULFATE 4 MG/ML SYRINGE IV STA (06:59)
[2020-02-17] MEDS ORDERED: SODIUM CHLORIDE 0.9% 1,000 ML IV ONE (07:48)
--- NOTE | 2020-02-17 07:49 | ED ---
Abdominal Pain HPI - General Chief Complaint: Recheck/Abnormal Lab/Rx Stated Complaint: nausea Time Seen by Provider: 02/17/20 04:43 Source: patient Mode of arrival: ambulatory Limitations: physical limitation (Patient is declining to participate with initial history and physical exam) - History of Present Illness Initial Comments: This patient is a 39-year-old man who returns for reevaluation in relation to nausea, vomiting, and abdominal pain. The patient is declining to participate with the initial history and physical stating that he is too sick. Most the history comes from his who is at the bedside. She states the symptoms have been going on since late Monday. He was seen here on Monday, had some lab tests and was given medication. He was feeling a little better and went home with prescription for Zofran. Patient has had recurrence of nausea and vomiting. Patient does indicate periumbilical abdominal pain, but not able to characterize it, feeling too sick to participate in the initial story and physical exam. MD Complaint: abdominal pain -: days(s) Location: diffuse Radiation: none Associated Symptoms: nausea, vomiting - Related Data Previous Rx's Medication Instructions Recorded levETIRAcetam [Keppra] 500 mg PO Q12HR #60 tab 12/30/19 Ondansetron Odt [Zofran Odt] 4 mg PO Q8HR PRN #10 tab 02/15/20 Promethazine [Phenergan] 25 mg PO Q6HR PRN #12 tablet 02/17/20 Allergies Allergy/AdvReac Type Severity Reaction Status Date / Time Fish Containing Products AdvReac Nausea Verified 02/17/20 06:57 [Fish] Review of Systems ROS Statement: Those systems with pertinent positive or pertinent negative responses have been documented in the HPI. ROS Other: All systems not noted in ROS Statement are negative. Limitations: ROS unobtainable due to patients medical condition (Patient is declining to participate with initial history and physical exam) Constitutional: Denies: fever, chills Cardiovascular: Denies: chest pain Gastrointestinal: Reports: as per HPI, abdominal pain, nausea, vomiting Musculoskeletal: Denies: back pain Neurological: Denies: headache Past Medical History Past Medical History: Asthma, Seizure Disorder Additional Past Medical History / Comment(s): Pt seen in ER 05/24/18 possible seizure/head injury History of Any Multi-Drug Resistant Organisms: None Reported Past Surgical History: No Surgical Hx Reported Additional Past Surgical History / Comment(s): 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 Past Anesthesia/Blood Transfusion Reactions: No Reported Reaction Past Psychological History: No Psychological Hx Reported Smoking Status: Current some day smoker Past Alcohol Use History: None Reported Past Drug Use History: Marijuana - Past Family History Father Family Medical History: CVA/TIA Additional Family Medical History / Comment(s): Father had a CVA. He is Mother Family Medical History: Cancer Additional Family Medical History / Comment(s): Mother of ovarian cancer. General Exam Limitations: no limitations General appearance: alert, in no apparent distress Head exam: Present: atraumatic, normocephalic Eye exam: Present: normal appearance. Absent: scleral icterus, conjunctival injection Respiratory exam: Present: normal lung sounds bilaterally. Absent: respiratory distress, wheezes, rales, rhonchi, stridor Cardiovascular Exam: Present: regular rate, normal rhythm, normal heart sounds. Absent: systolic murmur, diastolic murmur, rubs, gallop GI/Abdominal exam: Present: soft, tenderness (There appears to be mild diffuse tenderness without rebound or guarding). Absent: distended, guarding, rebound, rigid, mass, pulsatile mass, hernia Extremities exam: Present: normal inspection, normal capillary refill. Absent: pedal edema, calf tenderness Back exam: Present: other (Unable to examine patient's back) Neurological exam: Present: alert Skin exam: Present: warm, dry, intact, normal color. Absent: rash Course Vital Signs 02/17/20 02/17/20 02/17/20 04:32 06:00 07:00 Temperature 98.3 F 98.5 F Pulse Rate 83 78 88 Respiratory 18 18 18 Rate Blood Pressure 160/100 158/88 126/88 O2 Sat by Pulse 100 97 99 Oximetry Medical Decision Making - Medical Decision Making Patient is 39-year-old man with nausea, vomiting, and abdominal pain. The initial workup does reveal an increase in patient's leukocytes versus the previous encounter. Given this and the abdominal tenderness, he is sent for computed tomography scan which is unremarkable. Following medications, patient is feeling a bit better and is now able to participate and did request a little more medication for nausea. - Lab Data Result diagrams: 02/17/20 05:00 02/17/20 05:00 Lab Results 02/17/20 02/17/20 02/17/20 Range/Units 05:00 05:00 05:00 WBC 11.8 H (3.8-10.6) k/uL RBC 5.07 (4.30-5.90) m/uL Hgb 15.8 (13.0-17.5) gm/dL Hct 46.4 (39.0-53.0) % MCV 91.5 (80.0-100.0) fL MCH 31.1 (25.0-35.0) pg MCHC 34.0 (31.0-37.0) g/dL RDW 13.2 (11.5-15.5) % Plt Count 285 (150-450) k/uL Neutrophils % 80 % Lymphocytes % 13 % Monocytes % 5 % Eosinophils % 2 % Basophils % 0 % Neutrophils # 9.4 H (1.3-7.7) k/uL Lymphocytes # 1.5 (1.0-4.8) k/uL Monocytes # 0.5 (0-1.0) k/uL Eosinophils # 0.2 (0-0.7) k/uL Basophils # 0.0 (0-0.2) k/uL Sodium 137 (137-145) mmol/L Potassium 3.8 (3.5-5.1) mmol/L Chloride 102 (98-107) mmol/L Carbon Dioxide 25 (22-30) mmol/L Anion Gap 10 mmol/L BUN 12 (9-20) mg/dL Creatinine 1.23 (0.66-1.25) mg/dL Est GFR (CKD-EPI)AfAm 86 (>60 ml/min/1.73 sqM) Est GFR (CKD-EPI)NonAf 74 (>60 ml/min/1.73 sqM) Glucose 106 H (74-99) mg/dL Calcium 10.4 H (8.4-10.2) mg/dL Total Bilirubin 1.1 (0.2-1.3) mg/dL AST 35 (17-59) U/L ALT 23 (4-49) U/L Alkaline Phosphatase 71 (38-126) U/L C-Reactive Protein 7.3 (<10.0) mg/L Total Protein 7.3 (6.3-8.2) g/dL Albumin 4.5 (3.5-5.0) g/dL Amylase 68 (30-110) U/L Lipase 186 (23-300) U/L Urine Color Yellow Urine Appearance Clear (Clear) Urine pH 6.0 (5.0-8.0) Ur Specific [place] 1.036 H (1.001-1.035) Urine Protein 1+ H (Negative) Urine Glucose (UA) Negative (Negative) Urine Ketones 3+ H (Negative) Urine Blood Negative (Negative) Urine Nitrite Negative (Negative) Urine Bilirubin 1+ H (Negative) Urine Urobilinogen 6.0 (<2.0) mg/dL Ur Leukocyte Esterase Negative (Negative) Urine RBC 1 (0-5) /hpf Urine WBC 1 (0-5) /hpf Urine Mucus Many H (None) /hpf Disposition Clinical Impression: Abdominal pain Disposition: HOME SELF-CARE Condition: Good Instructions (If sedation given, give patient instructions): Abdominal Pain (ED) Prescriptions: Promethazine [Phenergan] 25 mg PO Q6HR PRN #12 tablet PRN Reason: Vomiting Is patient prescribed a controlled substance at d/c from ED?: No Referrals: Kirk Dempsey MD [Primary Care Provider] - 1-2 days
[2020-02-17 09:05] VITALS: BP 152/86; PULSE 96; TEMP 98.1
== END 2020-02-17 09:04 | disposition home or self-care (01) ==
LOC: EC 04:26
DX: R10.30 Lower abdominal pain, unspecified (principal); R11.2 Nausea with vomiting, unspecified; Z91.013 Allergy to seafood; F17.200 Nicotine dependence, unspecified, uncomplicated
CPT/HCPCS: 36415; 80053; 82150; 83690; 85025; 86140; 81001; 74176; 96365; 96375 ×2; 96361 ×2; 99284; J2270; J2550; J2765

== ENCOUNTER 2020-05-28 12:40 | Emergency (ER) | payer BC ==
[2020-05-28 12:45] VITALS: RESP 18; TEMP 98.7
[2020-05-28] MEDS ORDERED: levETIRAcetam IV 500 MG in SODIUM CHLORIDE 0.9% 100 ML IVPB STA (13:18)
--- NOTE | 2020-05-28 13:24 | ED ---
General Adult HPI - General Chief complaint: Seizure Stated complaint: Seizure Time Seen by Provider: 05/28/20 12:45 Source: patient, EMS, RN notes reviewed, old records reviewed Mode of arrival: EMS Limitations: no limitations - History of Present Illness Initial comments: This is a 39-year-old male with past medical history significant for seizures. Patient states he takes Keppra. Patient states he does miss Keppra dose every couple days. Patient states she's had a seizure about one week ago. Patient states he does not remember anything prior to seizure today. states she found him in a postictal state. She called EMS. Patient currently denies any symptoms other than feeling a little bit tired. Patient denies any recent fever chills or cough per patient denies any difficulty breathing. Patient denies any vomiting or diarrhea. Patient denies abdominal pain. Patient denies any recent injury or trauma. - Related Data Previous Rx's Medication Instructions Recorded levETIRAcetam [Keppra] 500 mg PO Q12HR #60 tab 12/30/19 Ondansetron Odt [Zofran Odt] 4 mg PO Q8HR PRN #10 tab 02/15/20 Promethazine [Phenergan] 25 mg PO Q6HR PRN #12 tablet 02/17/20 Allergies Allergy/AdvReac Type Severity Reaction Status Date / Time Fish Containing Products AdvReac Nausea Verified 02/17/20 06:57 [Fish] Review of Systems ROS Statement: Those systems with pertinent positive or pertinent negative responses have been documented in the HPI. ROS Other: All systems not noted in ROS Statement are negative. 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 Past Anesthesia/Blood Transfusion Reactions: No Reported Reaction Past Psychological History: No Psychological Hx Reported Smoking Status: Current some day smoker Past Alcohol Use History: None Reported Past Drug Use History: Marijuana - Past Family History Father Family Medical History: CVA/TIA Additional Family Medical History / Comment(s): Father had a CVA. He is Mother Family Medical History: Cancer Additional Family Medical History / Comment(s): Mother of ovarian cancer. General Exam - General Exam Comments Initial Comments: GENERAL: Patient is well-developed and well-nourished. Patient is nontoxic and well-hydrated and is in mild distress. ENT: Neck is soft and supple. No significant lymphadenopathy is noted. Oropharynx is clear. Moist mucous membranes. Neck has full range of motion without eliciting any pain. EYES: The sclera were anicteric and conjunctiva were pink and moist. Extraocular movements were intact and pupils were equal round and reactive to light. Eyelids were unremarkable. PULMONARY: Unlabored respirations. Good breath sounds bilaterally. No audible rales rhonchi or wheezing was noted. CARDIOVASCULAR: There is a regular rate and rhythm without any murmurs gallops or rubs. ABDOMEN: Soft and nontender with normal bowel sounds. SKIN: Skin is clear with no lesions or rashes and otherwise unremarkable. NEUROLOGIC: Patient is alert and oriented x3. Cranial nerves II through XII are grossly intact. Motor and sensory are also intact. Normal speech, volume and content. Symmetrical smile. MUSCULOSKELETAL: Normal extremities with adequate strength and full range of motion. LYMPHATICS: No significant lymphadenopathy is noted PSYCHIATRIC: Normal psychiatric evaluation. Limitations: no limitations Course Vital Signs 05/28/20 12:41 Temperature 98.7 F Pulse Rate 118 H Respiratory 18 Rate Blood Pressure 128/78 O2 Sat by Pulse 100 Oximetry Medical Decision Making - Medical Decision Making EKG shows normal sinus rhythm at 90 bpm MS interval 144 QRS is 86 QT interval 356 QTC is 456 per patient's EKG shows no ST segment elevation or depression. - Lab Data Result diagrams: 05/28/20 13:21 05/28/20 13:21 Lab Results 05/28/20 05/28/20 Range/Units 13:21 13:21 WBC 13.6 H (3.8-10.6) k/uL RBC 5.05 (4.30-5.90) m/uL Hgb 16.1 (13.0-17.5) gm/dL Hct 47.1 (39.0-53.0) % MCV 93.2 (80.0-100.0) fL MCH 31.9 (25.0-35.0) pg MCHC 34.2 (31.0-37.0) g/dL RDW 12.9 (11.5-15.5) % Plt Count 287 (150-450) k/uL MPV 8.8 Neutrophils % 84 % Lymphocytes % 8 % Monocytes % 6 % Eosinophils % 1 % Basophils % 0 % Neutrophils # 11.4 H (1.3-7.7) k/uL Lymphocytes # 1.1 (1.0-4.8) k/uL Monocytes # 0.8 (0-1.0) k/uL Eosinophils # 0.2 (0-0.7) k/uL Basophils # 0.0 (0-0.2) k/uL Sodium 141 (137-145) mmol/L Potassium 4.2 (3.5-5.1) mmol/L Chloride 104 (98-107) mmol/L Carbon Dioxide 19 L (22-30) mmol/L Anion Gap 18 mmol/L BUN 10 (9-20) mg/dL Creatinine 1.31 H (0.66-1.25) mg/dL Est GFR (CKD-EPI)AfAm 80 (>60 ml/min/1.73 sqM) Est GFR (CKD-EPI)NonAf 69 (>60 ml/min/1.73 sqM) Glucose 121 H (74-99) mg/dL Calcium 10.2 (8.4-10.2) mg/dL Total Bilirubin 0.7 (0.2-1.3) mg/dL AST 34 (17-59) U/L ALT 35 (4-49) U/L Alkaline Phosphatase 51 (38-126) U/L Total Protein 8.0 (6.3-8.2) g/dL Albumin 4.9 (3.5-5.0) g/dL Disposition Clinical Impression: Generalized seizure, Noncompliance with medications Disposition: HOME SELF-CARE Condition: Good Instructions (If sedation given, give patient instructions): Recurrent Seizures in Adults (ED) Is patient prescribed a controlled substance at d/c from ED?: No Referrals: Kirk Dempsey MD [Primary Care Provider] - 1-2 days Time of Disposition: 14:01
[2020-05-28 13:32] LABS: Basophils % (A) 0 %; Eosinophils # (A) 0.2 k/uL (0-0.7); Eosinophils % (A) 1 %; HCT 47.1 % (39.0-53.0); HGB 16.1 gm/dL (13.0-17.5); Lymphocytes # (A) 1.1 k/uL (1.0-4.8); Lymphocytes % (A) 8 %; MCH 31.9 pg (25.0-35.0); MCHC 34.2 g/dL (31.0-37.0); MCV 93.2 fL (80.0-100.0); Mean Platelet Volume 8.8; Monocytes # (A) 0.8 k/uL (0-1.0); Monocytes % (A) 6 %; Neutrophils # (A) 11.4 k/uL (1.3-7.7); Neutrophils % (A) 84 %; Platelet Count 287 k/uL (150-450); RBC 5.05 m/uL (4.30-5.90); RDW 12.9 % (11.5-15.5); WBC 13.6 k/uL (3.8-10.6)
[2020-05-28 13:47] LABS: Albumin 4.9 g/dL (3.5-5.0); Calcium 10.2 mg/dL (8.4-10.2); Potassium 4.2 mmol/L (3.5-5.1); Total Bilirubin 0.7 mg/dL (0.2-1.3)
[2020-05-28 14:16] VITALS: BP 136/84; PULSE 88
== END 2020-05-28 14:14 | disposition home or self-care (01) ==
LOC: EC 12:40
DX: G40.909 Epilepsy, unspecified, not intractable, without status epilepticus (principal); F17.200 Nicotine dependence, unspecified, uncomplicated; Z91.013 Allergy to seafood; Z91.14 Patient's other noncompliance with medication regimen
CPT/HCPCS: 36415; 93005; 80053; 80177; 85025; 99284; 96360; J1953

== ENCOUNTER 2020-05-29 18:58 | Emergency (ER) | payer BC ==
[2020-05-29 19:08] VITALS: RESP 18; TEMP 99.8
--- NOTE | 2020-05-29 19:11 | ED ---
General Adult HPI - General Chief complaint: Nausea/Vomiting/Diarrhea Stated complaint: Revisit - vomiting Time Seen by Provider: 05/29/20 19:10 Source: patient, family Mode of arrival: ambulatory Limitations: no limitations - History of Present Illness Initial comments: Patient presents to the ED with for evaluation. Patient states that he has had nausea and vomiting for the past 3 days. Patient's states that the patient was seen in the ED yesterday after having a seizure, and he was treated for his seizure disorder with IV Keppra, but he was not treated for his nausea and vomiting. Patient's states that the patient has a history of recurrent nausea and vomiting. Patient denies trauma or injury, fever or chills, headache, focal neuro deficit, chest pain, dyspnea, dizziness, cough or cold symptoms, abdominal pain, back or flank pain, diarrhea or constipation, bloody or melanotic stool, hematemesis, dysuria or urinary symptoms, decreased urine output, or any other symptoms or complaints. Patient denies known sick contact or recent travel. - Related Data Home Medications Medication Instructions Recorded Confirmed levETIRAcetam [Keppra] 500 mg PO TID 05/29/20 05/29/20 Previous Rx's Medication Instructions Recorded Ondansetron Odt [Zofran Odt] 4 mg PO Q8HR PRN #10 tab 05/29/20 Allergies Allergy/AdvReac Type Severity Reaction Status Date / Time Fish Containing Products AdvReac Nausea Verified 05/29/20 20:52 [Fish] Review of Systems ROS Statement: Those systems with pertinent positive or pertinent negative responses have been documented in the HPI. ROS Other: All systems not noted in ROS Statement are negative. 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 Past Anesthesia/Blood Transfusion Reactions: No Reported Reaction Past Psychological History: No Psychological Hx Reported Smoking Status: Current some day smoker Past Alcohol Use History: None Reported Past Drug Use History: Marijuana - Past Family History Father Family Medical History: CVA/TIA Additional Family Medical History / Comment(s): Father had a CVA. He is Mother Family Medical History: Cancer Additional Family Medical History / Comment(s): Mother of ovarian cancer. General Exam Limitations: no limitations General appearance: alert, in no apparent distress Head exam: Present: atraumatic, normocephalic Eye exam: Present: normal appearance, EOMI ENT exam: Present: mucous membranes moist Neck exam: Present: other (Trachea is in midline). Absent: tenderness, meningismus Respiratory exam: Present: normal lung sounds bilaterally. Absent: respiratory distress, wheezes, rales, rhonchi Cardiovascular Exam: Present: regular rate, normal rhythm, normal heart sounds, other (Normal radial pulses bilaterally) GI/Abdominal exam: Present: soft, normal bowel sounds. Absent: distended, tenderness, guarding Extremities exam: Absent: tenderness, pedal edema Back exam: Absent: CVA tenderness (R), CVA tenderness (L) Neurological exam: Present: alert, oriented X3. Absent: motor sensory deficit Psychiatric exam: Present: normal affect, normal mood Skin exam: Present: warm, dry, intact, normal color Course Vital Signs 05/29/20 05/29/20 19:03 20:47 Temperature 99.8 F H Pulse Rate 89 84 Respiratory 18 18 Rate Blood Pressure 147/91 151/90 O2 Sat by Pulse 99 97 Oximetry - Reevaluation(s) Reevaluation #1: 05/29/20 20:51 Patient states that his nausea and vomiting have improved with ED treatment, and he is requesting to go home at this time. Patient's abdomen remains soft and nontender on examination. Patient has not had any vomiting while in the ED. Patient was able to drink and keep down some dwight kathy while in the ED. Patient and are aware the patient's test results, and they both feel comfortable with the patient going home at this time. They were counseled about nausea and vomiting, and they were clearly explained return and follow-up instructions. Patient was instructed to follow up closely with his primary care provider. Patient feels comfortable with this plan. Medical Decision Making - Medical Decision Making Patient's labs are fairly unremarkable. Patient has a soft and nontender abdomen. Patient is afebrile and without leukocytosis. Patient's vital signs are reassuring. Patient has a history of recurrent nausea and vomiting, which his feels may be secondary to his chronic marijuana use. I do not suspect an emergent medical condition at this time. Will discharge patient home with his at this time. - Lab Data Result diagrams: 05/29/20 19:52 05/29/20 19:52 Lab Results 05/29/20 05/29/20 Range/Units 19:52 19:52 WBC 9.0 (3.8-10.6) k/uL RBC 4.92 (4.30-5.90) m/uL Hgb 15.7 (13.0-17.5) gm/dL Hct 45.0 (39.0-53.0) % MCV 91.5 (80.0-100.0) fL MCH 31.9 (25.0-35.0) pg MCHC 34.8 (31.0-37.0) g/dL RDW 12.6 (11.5-15.5) % Plt Count 229 (150-450) k/uL MPV 8.6 Neutrophils % 72 % Lymphocytes % 18 % Monocytes % 6 % Eosinophils % 1 % Basophils % 1 % Neutrophils # 6.5 (1.3-7.7) k/uL Lymphocytes # 1.7 (1.0-4.8) k/uL Monocytes # 0.6 (0-1.0) k/uL Eosinophils # 0.1 (0-0.7) k/uL Basophils # 0.1 (0-0.2) k/uL Sodium 136 L (137-145) mmol/L Potassium 3.9 (3.5-5.1) mmol/L Chloride 103 (98-107) mmol/L Carbon Dioxide 26 (22-30) mmol/L Anion Gap 7 mmol/L BUN 15 (9-20) mg/dL Creatinine 1.06 (0.66-1.25) mg/dL Est GFR (CKD-EPI)AfAm >90 (>60 ml/min/1.73 sqM) Est GFR (CKD-EPI)NonAf 89 (>60 ml/min/1.73 sqM) Glucose 96 (74-99) mg/dL Calcium 9.9 (8.4-10.2) mg/dL Total Bilirubin 1.0 (0.2-1.3) mg/dL AST 35 (17-59) U/L ALT 26 (4-49) U/L Alkaline Phosphatase 58 (38-126) U/L Total Protein 7.3 (6.3-8.2) g/dL Albumin 4.3 (3.5-5.0) g/dL Lipase 169 (23-300) U/L Disposition Clinical Impression: Nausea and vomiting Disposition: HOME SELF-CARE Condition: Stable Instructions (If sedation given, give patient instructions): Acute Nausea and Vomiting (ED) Additional Instructions: Return to the ER immediately should you develop increased or persistent vomiting, bloody vomiting, significant pain, a fever, shortness of breath, feeling dizzy or faint, or new or worsening symptoms. Follow up closely with your primary care provider. Prescriptions: Ondansetron Odt [Zofran Odt] 4 mg PO Q8HR PRN #10 tab PRN Reason: Nausea Is patient prescribed a controlled substance at d/c from ED?: No Referrals: None,Stated [Primary Care Provider] - 1-2 days Aryan Pappas MD [REFERRING] - 1-2 days Time of Disposition: 20:54
[2020-05-29] MEDS ORDERED: diphenhydrAMINE 50 MG/ML 1 ML VIAL IVP STA (19:19)
[2020-05-29] MEDS ORDERED: ONDANSETRON 4 MG/2 ML VIAL IVP STA (19:19)
[2020-05-29] MEDS ORDERED: SODIUM CHLORIDE 0.9% 1,000 ML IV STA (19:19)
[2020-05-29 20:05] LABS: Basophils # (A) 0.1 k/uL (0-0.2); Basophils % (A) 1 %; Eosinophils # (A) 0.1 k/uL (0-0.7); Eosinophils % (A) 1 %; HGB 15.7 gm/dL (13.0-17.5); Lymphocytes # (A) 1.7 k/uL (1.0-4.8); Lymphocytes % (A) 18 %; MCH 31.9 pg (25.0-35.0); MCHC 34.8 g/dL (31.0-37.0); MCV 91.5 fL (80.0-100.0); Mean Platelet Volume 8.6; Monocytes # (A) 0.6 k/uL (0-1.0); Monocytes % (A) 6 %; Neutrophils # (A) 6.5 k/uL (1.3-7.7); Neutrophils % (A) 72 %; Platelet Count 229 k/uL (150-450); RBC 4.92 m/uL (4.30-5.90); RDW 12.6 % (11.5-15.5)
[2020-05-29 20:14] LABS: ALT 26 U/L (4-49); AST 35 U/L (17-59); African American GFR (CKD) >90 (>60 ml/min/1.73 sqM); Albumin 4.3 g/dL (3.5-5.0); Alkaline Phosphatase 58 U/L (38-126); Anion Gap 7 mmol/L; Blood Urea Nitrogen 15 mg/dL (9-20); Calcium 9.9 mg/dL (8.4-10.2); Carbon Dioxide 26 mmol/L (22-30); Chloride 103 mmol/L (98-107); Glucose 96 mg/dL (74-99); Lipase 169 U/L (23-300); Non-African American GFR(CKD) 89 (>60 ml/min/1.73 sqM); Potassium 3.9 mmol/L (3.5-5.1); Sodium 136 mmol/L (137-145); Total Protein 7.3 g/dL (6.3-8.2)
[2020-05-29 20:48] VITALS: BP 151/90; PULSE 84
== END 2020-05-29 21:06 | disposition home or self-care (01) ==
LOC: EC 18:58
DX: R11.2 Nausea with vomiting, unspecified (principal); G40.909 Epilepsy, unspecified, not intractable, without status epilepticus; F17.200 Nicotine dependence, unspecified, uncomplicated; Z79.899 Other long term (current) drug therapy; Z91.013 Allergy to seafood
CPT/HCPCS: 36415; 80053; 83690; 85025; 99284; 96374; 96375; 96361; J1200; J2405

== ENCOUNTER 2020-05-30 14:51 | Emergency (ER) | payer BC ==
[2020-05-30 15:02] VITALS: BP 128/87; PULSE 101; RESP 18; TEMP 98.3
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
[2020-05-30 15:19] LABS: Basophils # (A) 0.1 k/uL (0-0.2); Basophils % (A) 1 %; Eosinophils # (A) 0.1 k/uL (0-0.7); Eosinophils % (A) 1 %; HCT 46.8 % (39.0-53.0); Lymphocytes # (A) 2.2 k/uL (1.0-4.8); Lymphocytes % (A) 26 %; MCHC 34.2 g/dL (31.0-37.0); MCV 93.5 fL (80.0-100.0); Mean Platelet Volume 8.8; Monocytes # (A) 0.6 k/uL (0-1.0); Monocytes % (A) 7 %; Neutrophils # (A) 5.3 k/uL (1.3-7.7); Neutrophils % (A) 63 %; Platelet Count 248 k/uL (150-450); RDW 12.5 % (11.5-15.5); WBC 8.4 k/uL (3.8-10.6)
[2020-05-30 15:30] LABS: AST 32 U/L (17-59); African American GFR (CKD) 89 (>60 ml/min/1.73 sqM); Albumin 4.6 g/dL (3.5-5.0); Alcohol <10 mg/dL; Alkaline Phosphatase 53 U/L (38-126); Anion Gap 20 mmol/L; Blood Urea Nitrogen 15 mg/dL (9-20); Calcium 9.8 mg/dL (8.4-10.2); Carbon Dioxide 16 mmol/L (22-30); Chloride 101 mmol/L (98-107); Glucose 113 mg/dL (74-99); Non-African American GFR(CKD) 77 (>60 ml/min/1.73 sqM); Potassium 3.9 mmol/L (3.5-5.1); Sodium 137 mmol/L (137-145); Total Bilirubin 1.1 mg/dL (0.2-1.3); Total Protein 7.7 g/dL (6.3-8.2)
[2020-05-30 15:36] LABS: ALT 35 U/L (4-49)
[2020-05-30 15:37] LABS: Partial Thromboplastin Time 22.1 sec (22.0-30.0); Prothrombin Time 10.8 sec (9.0-12.0)
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
--- NOTE | 2020-05-30 16:16 | XR ---
EXAMINATION TYPE: XR chest 2V DATE OF EXAM: 05/30/2020 COMPARISON: 03/03/2019 HISTORY: Pain. Trauma. TECHNIQUE: 2 views FINDINGS: Heart and mediastinum are normal. Lungs are clear. Diaphragm is normal. Bony thorax appears normal. IMPRESSION: Normal chest. No change.
--- NOTE | 2020-05-30 16:17 | XR ---
EXAMINATION TYPE: XR shoulder complete BILAT DATE OF EXAM: 05/30/2020 COMPARISON: NONE HISTORY: Shoulder pain TECHNIQUE: 6 views FINDINGS: The right and left shoulder joint spaces are fairly normal. There is spurring at the left s houlder joint. I see no fracture nor dislocation. AC joint spaces are normal. 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 No fracture seen. N ormal right shoulder joint.
--- NOTE | 2020-05-30 16:19 | XR ---
EXAMINATION TYPE: XR pelvis AP view DATE OF EXAM: 05/30/2020 COMPARISON: NONE HISTORY: Hip pain TECHNIQUE: Single view FINDINGS: Pelvic ring is intact. Proximal femurs and hip joints are intact. Sacroiliac joints are nor mal. Bladder distends smoothly. IMPRESSION: No acute abnormality of the pelvis.
[2020-05-30 16:48] LABS: Appearance,Urine Clear (Clear); Bilirubin,Urine Negative (Negative); Blood,Urine Negative (Negative); Color,Urine Yellow; Glucose,Urine (UA) Negative (Negative); Ketones,Urine Trace (Negative); Leukocyte Esterase,Urine Negative (Negative); Nitrite,Urine Negative (Negative); Protein,Urine Trace (Negative); Specific Gravity,Urine >1.050 (1.001-1.035)
[2020-05-30] MEDS ORDERED: levETIRAcetam IV 1,000 MG in SALINE 1 100ML.BAG IVPB STA (16:56)
== END 2020-05-30 17:36 | disposition home or self-care (01) ==
LOC: EC 14:51
DX: Z04.1 Encounter for examination and observation following transport accident (principal); G40.909 Epilepsy, unspecified, not intractable, without status epilepticus; E87.2 Acidosis; F17.200 Nicotine dependence, unspecified, uncomplicated; Z79.899 Other long term (current) drug therapy; Z91.013 Allergy to seafood
CPT/HCPCS: 36415; 93005; 80053; 85025; 85610; 85730; 81003; 80320; 73030; 72170; 71046; 72125; 70450; 71260; 74177; 99285; 96365; J1953; Q9967

== ENCOUNTER 2020-09-16 15:39 | Emergency (ER) | payer BC, OTHER ==
[2020-09-16] MEDS ORDERED: levETIRAcetam IV 1,000 MG in SALINE 1 100ML.BAG IVPB STA (15:43)
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
[2020-09-16 15:51] VITALS: RESP 16; TEMP 98
[2020-09-16 15:53] LABS: Basophils # (A) 0.1 k/uL (0-0.2); Basophils % (A) 1 %; Eosinophils # (A) 0.5 k/uL (0-0.7); Eosinophils % (A) 6 %; HGB 15.5 gm/dL (13.0-17.5); Lymphocytes # (A) 3.1 k/uL (1.0-4.8); Lymphocytes % (A) 36 %; MCH 31.4 pg (25.0-35.0); MCHC 33.6 g/dL (31.0-37.0); MCV 93.4 fL (80.0-100.0); Mean Platelet Volume 8.4; Monocytes # (A) 0.5 k/uL (0-1.0); Monocytes % (A) 6 %; Neutrophils # (A) 4.2 k/uL (1.3-7.7); Neutrophils % (A) 49 %; Platelet Count 307 k/uL (150-450); RBC 4.93 m/uL (4.30-5.90); RDW 12.9 % (11.5-15.5); WBC 8.6 k/uL (3.8-10.6)
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
[2020-09-16 16:08] LABS: AST 34 U/L (17-59); African American GFR (CKD) 68 (>60 ml/min/1.73 sqM); Albumin 4.3 g/dL (3.5-5.0); Alcohol <10 mg/dL; Alkaline Phosphatase 51 U/L (38-126); Anion Gap 24 mmol/L; Blood Urea Nitrogen 9 mg/dL (9-20); Calcium 9.3 mg/dL (8.4-10.2); Carbon Dioxide 10 mmol/L (22-30); Chloride 105 mmol/L (98-107); Glucose 118 mg/dL (74-99); Non-African American GFR(CKD) 59 (>60 ml/min/1.73 sqM); Potassium 4.3 mmol/L (3.5-5.1); Sodium 139 mmol/L (137-145); Total Bilirubin 0.5 mg/dL (0.2-1.3); Total Protein 7.4 g/dL (6.3-8.2)
[2020-09-16 16:13] LABS: Partial Thromboplastin Time 23.8 sec (22.0-30.0)
[2020-09-16 16:15] LABS: ALT 27 U/L (4-49)
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
[2020-09-16 16:29] LABS: Glucose,Whole Blood 120 mg/dL (75-99)
[2020-09-16] MEDS ORDERED: SODIUM CHLORIDE 0.9% 1,000 ML IV ONE (16:35)
[2020-09-16] MEDS ORDERED: KETOROLAC 15 MG/ML 1 ML VIAL IVP STA (16:54)
[2020-09-16 17:44] LABS: Appearance,Urine Clear (Clear); Bilirubin,Urine Negative (Negative); Blood,Urine Trace (Negative); Color,Urine Colorless; Glucose,Urine (UA) Negative (Negative); Ketones,Urine Negative (Negative); Leukocyte Esterase,Urine Negative (Negative); Nitrite,Urine Negative (Negative); Protein,Urine Trace (Negative); RBC,Urine <1 /hpf (0-5); Urobilinogen,Urine <2.0 mg/dL (<2.0); WBC,Urine <1 /hpf (0-5)
[2020-09-16 17:50] LABS: Specific Gravity,Urine 1.049 (1.001-1.035)
[2020-09-16 17:54] LABS: Amphetamine Screen,Urine Not Detected (NotDetected); Barbiturate Screen,Urine Not Detected (NotDetected); Benzodiazepines Screen,Urine Not Detected (NotDetected); Cocaine Screen,Urine Not Detected (NotDetected); Methadone Screen, Urine Not Detected (NotDetected); Opiate Screen,Urine Not Detected (NotDetected); Oxycodone Screen, Urine Not Detected (NotDetected); Phencyclidine Screen,Urine Not Detected (NotDetected); Tricyclic Antidepressant,Urine Not Detected (NotDetected); Urn Cannabinoid Scrn Not Detected (NotDetected)
[2020-09-16] MEDS ORDERED: HYDROmorphone 0.5 MG/0.5 ML SYRINGE IVP STA (18:17)
[2020-09-16 18:35] VITALS: PULSE 88
[2020-09-16 19:14] VITALS: BP 130/81
== END 2020-09-16 18:43 | disposition home or self-care (01) ==
LOC: EC 15:39
DX: R56.9 Unspecified convulsions (principal); J45.909 Unspecified asthma, uncomplicated; F12.90 Cannabis use, unspecified, uncomplicated; F17.200 Nicotine dependence, unspecified, uncomplicated
CPT/HCPCS: 36415; 86900; 86901; 80053; 84484; 85025; 85610; 85730; 86850; 81001; 80306; 80320; 72170; 71045; 72125; 70450; 71260; 74177; 99285; 96374; 96375; 96361; J1885; J1953; J1170; 93005

== ENCOUNTER 2020-10-28 18:17 | Emergency (ER) | payer BC ==
[2020-10-28] MEDS ORDERED: levETIRAcetam IV 1,000 MG in SALINE 1 100ML.BAG IVPB STA (18:48)
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
[2020-10-28 19:06] LABS: Basophils # (A) 0.1 k/uL (0-0.2); Basophils % (A) 1 %; Eosinophils # (A) 0.4 k/uL (0-0.7); Eosinophils % (A) 7 %; HCT 48.3 % (39.0-53.0); HGB 15.7 gm/dL (13.0-17.5); Lymphocytes # (A) 1.5 k/uL (1.0-4.8); Lymphocytes % (A) 28 %; MCH 29.6 pg (25.0-35.0); MCHC 32.5 g/dL (31.0-37.0); MCV 91.2 fL (80.0-100.0); Monocytes # (A) 0.3 k/uL (0-1.0); Monocytes % (A) 6 %; Neutrophils # (A) 2.9 k/uL (1.3-7.7); Neutrophils % (A) 55 %; Platelet Count 279 k/uL (150-450); RBC 5.29 m/uL (4.30-5.90); RDW 13.5 % (11.5-15.5); WBC 5.2 k/uL (3.8-10.6)
[2020-10-28 19:16] LABS: Albumin 4.8 g/dL (3.5-5.0); Calcium 10.1 mg/dL (8.4-10.2); Magnesium 2.1 mg/dL (1.6-2.3); Potassium 4.5 mmol/L (3.5-5.1); Total Bilirubin 0.2 mg/dL (0.2-1.3); Total Protein 7.8 g/dL (6.3-8.2)
[2020-10-28] MEDS ORDERED: SODIUM CHLORIDE 0.9% 1,000 ML IV STA (19:24)
[2020-10-28 20:22] VITALS: BP 130/89; PULSE 68; RESP 16; TEMP 97.8
== END 2020-10-28 20:22 | disposition home or self-care (01) ==
LOC: EC 18:17
DX: G40.409 Other generalized epilepsy and epileptic syndromes, not intractable, without status epilepticus (principal); J45.909 Unspecified asthma, uncomplicated; F17.200 Nicotine dependence, unspecified, uncomplicated; F12.90 Cannabis use, unspecified, uncomplicated; Z79.1 Long term (current) use of non-steroidal anti-inflammatories (NSAID)
CPT/HCPCS: 36415; 93005; 80053; 82550; 83735; 85025; 99284; 96374; 96361; J1953

== ENCOUNTER 2021-11-23 19:34 | Emergency (ER) | payer BC ==
[2021-11-23 22:49] VITALS: RESP 18
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
--- NOTE | 2021-11-24 01:30 | XR ---
EXAM: XR Right Shoulder Complete, 2 or More Views CLINICAL HISTORY: ITS.REASON XR Reason: Pain TECHNIQUE: Two or more views of the right shoulder. COMPARISON: No relevant prior studies available. FINDINGS: Bones/joints: Unremarkable. No acute fracture. No dislocation. Soft tissues: Unremarkable. IMPRESSION: Normal right shoulder x-rays.
[2021-11-24] MEDS ORDERED: dexAMETHasone 2 MG TAB PO STA (01:45)
[2021-11-24 02:02] VITALS: BP 158/101; PULSE 86; TEMP 98.1
== END 2021-11-24 02:26 | disposition home or self-care (01) ==
LOC: EC 19:34
DX: M25.511 Pain in right shoulder (principal); R20.2 Paresthesia of skin; J45.909 Unspecified asthma, uncomplicated; F17.200 Nicotine dependence, unspecified, uncomplicated; Z91.013 Allergy to seafood
CPT/HCPCS: 73030; 99284; J8540

== ENCOUNTER 2023-01-10 11:11 | Emergency (ER) | payer BC ==
[2023-01-10 11:28] VITALS: TEMP 97.9
[2023-01-10] MEDS ORDERED: KETOROLAC 15 MG/ML 1 ML VIAL IM STA (11:41)
--- NOTE | 2023-01-10 11:46 | ED ---
Male Urogenital HPI - General Chief complaint: Urogenital Stated complaint: male , hip pain, fever Time Seen by Provider: 01/10/23 11:32 Source: patient, RN notes reviewed, old records reviewed Mode of arrival: ambulatory Limitations: no limitations - History of Present Illness Initial comments: Well-appearing 42-year-old male presents ambulatory with complaints of right testicular pain since Monday. Denies any trauma. Patient states pain radiates up into his right groin. He did have a fever of 102 on Monday but not since. Denies any penile discharge. No dysuria. No abdominal pain. Does have history of torsion as a kid does not remember which side. Also history of asthma and seizure disorder. MD Complaint: testicle pain (right) -: days(s) (3) Location: right testicle, right inguinal region Severity scale (1-10): 8 Consistency: constant Improves with: none Reports: fever (monday 102) - Related Data Sexually active: Yes Home Medications Medication Instructions Recorded Confirmed levETIRAcetam [Keppra] 500 mg PO TID 05/29/20 05/29/20 Previous Rx's Medication Instructions Recorded Ondansetron Odt [Zofran Odt] 4 mg PO Q8HR PRN #10 tab 05/29/20 HYDROcodone/APAP 5-325MG [[place] 1 tab PO Q6HR PRN #12 tab 09/16/20 5-325] Ibuprofen [Motrin] 600 mg PO Q8HR PRN #24 tab 09/16/20 Levofloxacin [Levaquin] 500 mg PO DAILY 10 Days #10 tab 01/10/23 Allergies Allergy/AdvReac Type Severity Reaction Status Date / Time Fish Containing Products AdvReac Nausea Verified 11/23/21 22:49 [Fish] Review of Systems ROS Statement: Those systems with pertinent positive or pertinent negative responses have been documented in the HPI. ROS Other: All systems not noted in ROS Statement are negative. 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 Past Anesthesia/Blood Transfusion Reactions: No Reported Reaction Past Psychological History: No Psychological Hx Reported Smoking Status: Current some day smoker Past Alcohol Use History: None Reported Past Drug Use History: Marijuana - Past Family History Father Family Medical History: CVA/TIA Additional Family Medical History / Comment(s): Father had a CVA. He is Mother Family Medical History: Cancer Additional Family Medical History / Comment(s): Mother of ovarian cancer. General Exam Limitations: no limitations General appearance: alert, in no apparent distress Head exam: Present: atraumatic, normocephalic Eye exam: Present: normal appearance. Absent: scleral icterus, conjunctival injection, periorbital swelling Neck exam: Present: full ROM. Absent: tenderness, meningismus Respiratory exam: Absent: respiratory distress, accessory muscle use Cardiovascular Exam: Present: regular rate GI/Abdominal exam: Present: soft Expanded Male exam: Absent: penile swelling, lesions, erythema, priapism exam: Testicular Tenderness: Right Extremities exam: Present: full ROM, normal capillary refill. Absent: pedal edema Neurological exam: Present: alert, oriented X3, normal gait Psychiatric exam: Present: normal affect, normal mood Skin exam: Present: warm, dry, normal color. Absent: cyanosis, diaphoretic, pallor Course Vital Signs 01/10/23 01/10/23 11:24 14:49 Temperature 97.9 F Pulse Rate 90 75 Respiratory 18 16 Rate Blood Pressure 142/89 138/96 O2 Sat by Pulse 99 100 Oximetry Medical Decision Making - Medical Decision Making Was pt. sent in by a medical professional or institution (, PA, BUSINESS UNIT CONTROLLER, urgent care, hospital, or long-term...) When possible be specific @ -No Did you speak to anyone other than the patient for history (EMS, parent, family, police, friend...)? What history was obtained from this source @ -No Did you review nursing and triage notes (agree or disagree)? Why? @ -I reviewed and agree with nursing and triage notes Were old charts reviewed (outside hosp., previous admission, EMS record, old EKG, old radiological studies, urgent care reports/EKG's, long-term records)? Report findings @ -No old charts were reviewed Differential Diagnosis (chest pain, altered mental status, abdominal pain women, abdominal pain men, vaginal bleeding, weakness, fever, dyspnea, syncope, headache, dizziness, GI bleed, back pain, seizure, CVA, palpatations, mental health, musculoskeletal)? @ -Epididymitis, scrotal cellulitis, hydrocele, hematochezia, torsion, orchitis, varicocele, this is not an all inclusive listn EKG interpreted by me (3pts min.). @ n/a X-rays interpreted by me (1pt min.). @ -None done CT interpreted by me (1pt min.). @ -None done U/S interpreted by me (1pt. min.). @ -no What testing was considered but not performed or refused? (CT, X-rays, U/S, labs)? Why? @ -None What meds were considered but not given or refused? Why? @ -None Did you discuss the management of the patient with other professionals (professionals i.e. , PA, BUSINESS UNIT CONTROLLER, lab, RT, psych nurse, social worker clinical, granite block paver, teacher, energy control officer, case making machine operator)? Give summary @ -No Was smoking cessation discussed for >3mins.? @ -No Was critical care preformed (if so, how long)? @ -No Were there social determinants of health that impacted care today? How? (Homelessness, low income, unemployed, alcoholism, drug addiction, transportation, low edu. Level, literacy, decrease access to med. care, alf, rehab)? @ -No Was there de-escalation of care discussed even if they declined (Discuss DNR or withdrawal of care, Hospice)? DNR status @ -No What co-morbidities impacted this encounter? (DM, HTN, Smoking, COPD, CAD, Cancer, CVA, ARF, Chemo, Hep., AIDS, mental health diagnosis, sleep apnea, morbid obesity)? @ -seizure, asthma Was patient admitted / discharged? Hospital course, mention meds given and route, prescriptions, significant lab abnormalities, going to OR and other pertinent info. @ -Discharged Well-appearing 42-year-old male presents ambulatory with complaints of right testicular pain since Monday. Denies any trauma. Patient states pain radiates up into his right groin. He did have a fever of 102 on Monday but not since. Denies any penile discharge. No dysuria. No abdominal pain. Does have history of torsion as a kid does not remember which side. Also history of asthma and seizure disorder. On physical exam right testicle is tender to touch. No erythema or swelling noted. No penile discharge. Patient denies any concern for sexual transmitted infection. Ultrasound of the scrotum reveals right-sided orchitis, epididymal cysts bilaterally, right-sided varicoceles. Urinalysis negative for blood, no signs of infection. Urine was sent for cultures. Due to the patient's recent fever and orchitis on ultrasound, a mumps titer was drawn. Pain improved with toradol. I recommended cold packs with scrotal elevation in addition to Tylenol and Motrin for pain. Case discussed with Dr. Arcos who recommended patient be treated for acute epididymitis and enteric organisms. Rocephin 500 mg IM plus levofloxacin for 10 days. Instructed to follow up with primary care doctor and urology this week. Patient is agreeable to this plan of care. Undiagnosed new problem with uncertain prognosis? @ -No Drug Therapy requiring intensive monitoring for toxicity (Heparin, Nitro, Insulin, Cardizem)? @ -No Were any procedures done? @ -No Diagnosis/symptom? @ -Orchitis, varicocele, epididymal cyst Acute, or Chronic, or Acute on Chronic? @ -Acute Uncomplicated (without systemic symptoms) or Complicated (systemic symptoms)? @ -Uncomplicated Side effects of treatment? @ -No Exacerbation, Progression, or Severe Exacerbation? @ -No Poses a threat to life or bodily function? How? (Chest pain, [place], [place], pneumonia, PE, COPD, DKA, ARF, appy, cholecystitis, CVA, Diverticulitis, Homicidal, Suicidal, threat to staff... and all critical care pts) @ -No - Lab Data Result diagrams: 01/10/23 13:24 Lab Results 01/10/23 01/10/23 Range/Units 13:23 13:24 WBC 8.4 (3.8-10.6) k/uL RBC 4.71 (4.30-5.90) m/uL Hgb 14.3 (13.0-17.5) gm/dL Hct 42.2 (39.0-53.0) % MCV 89.6 (80.0-100.0) fL MCH 30.5 (25.0-35.0) pg MCHC 34.0 (31.0-37.0) g/dL RDW 13.0 (11.5-15.5) % Plt Count 281 (150-450) k/uL MPV 9.3 Neutrophils % 69 % Lymphocytes % 21 % Monocytes % 6 % Eosinophils % 3 % Basophils % 0 % Neutrophils # 5.8 (1.3-7.7) k/uL Lymphocytes # 1.7 (1.0-4.8) k/uL Monocytes # 0.5 (0-1.0) k/uL Eosinophils # 0.3 (0-0.7) k/uL Basophils # 0.0 (0-0.2) k/uL Urine Color Yellow Urine Appearance Clear (Clear) Urine pH 5.5 (5.0-8.0) Ur Specific [place] 1.019 (1.001-1.035) Urine Protein Negative (Negative) Urine Glucose (UA) Negative (Negative) Urine Ketones Negative (Negative) Urine Blood Negative (Negative) Urine Nitrite Negative (Negative) Urine Bilirubin Negative (Negative) Urine Urobilinogen <2.0 (<2.0) mg/dL Ur Leukocyte Esterase Negative (Negative) Disposition Clinical Impression: Orchitis and epididymitis Disposition: HOME SELF-CARE Condition: Good Instructions (If sedation given, give patient instructions): Epididymo-Orchitis (ED) Additional Instructions: Increase your fluid intake. Take antibiotics as prescribed. Follow-up with urology or your primary care doctor next week. Return to the emergency room with any new or concerning symptoms. Prescriptions: Levofloxacin [Levaquin] 500 mg PO DAILY 10 Days #10 tab Is patient prescribed a controlled substance at d/c from ED?: No Referrals: Yobany Tapia Jr, DO [Primary Care Provider] - 1-2 days Vickey Greenberg MD [STAFF PHYSICIAN] - 1-2 days Time of Disposition: 14:29
--- NOTE | 2023-01-10 13:08 | US ---
EXAMINATION TYPE: US scrotum with doppler. Grayscale and color Doppler Duplex imaging performed of t regulo scrotum. DATE OF EXAM: 01/10/2023 COMPARISON: NONE CLINICAL INDICATION: Male, 42 years old with history of right testicle pain, fever monday; rt groin p ain x 3 days EXAM MEASUREMENTS: TESTICLES: Right Testicle: 4.1x3.0x3.2 cm Left Testicle: 4.6x2.4x2.6 cm EPIDIDYMIS HEAD: Right Epididymis: 1.5 cm Left Epididymis: 1.9 cm Doppler performed to assess for testicular vascularity; good bilateral color flow and waveforms are s een. There is no evidence of testicular torsion. There is mildly increased flow right testicle whic h could reflect orchitis. Correlate clinically. Presence of hydroceles: N Presence of varicoceles: Right epididymal cysts vs other seen bilaterally. Most prominent measured bilaterally Right: 2.5x1.3x1.7cm Left: 1.6x1.4x1.8cm Left testicle/epididymis difficult to assess to to patient anatomy. IMPRESSION: 1. correlate for right-sided orchitis. 2. Epididymal cysts noted bilaterally. 3. Right-sided varicoceles.
[2023-01-10 13:33] LABS: Appearance,Urine Clear (Clear); Bilirubin,Urine Negative (Negative); Blood,Urine Negative (Negative); Color,Urine Yellow; Glucose,Urine (UA) Negative (Negative); Ketones,Urine Negative (Negative); Leukocyte Esterase,Urine Negative (Negative); Nitrite,Urine Negative (Negative); PH, Urine 5.5 (5.0-8.0); Protein,Urine Negative (Negative); Specific Gravity,Urine 1.019 (1.001-1.035); Urobilinogen,Urine <2.0 mg/dL (<2.0)
[2023-01-10 13:38] LABS: Basophils % (A) 0 %; Eosinophils # (A) 0.3 k/uL (0-0.7); Eosinophils % (A) 3 %; HCT 42.2 % (39.0-53.0); HGB 14.3 gm/dL (13.0-17.5); Lymphocytes # (A) 1.7 k/uL (1.0-4.8); Lymphocytes % (A) 21 %; MCH 30.5 pg (25.0-35.0); MCV 89.6 fL (80.0-100.0); Mean Platelet Volume 9.3; Monocytes # (A) 0.5 k/uL (0-1.0); Monocytes % (A) 6 %; Neutrophils # (A) 5.8 k/uL (1.3-7.7); Neutrophils % (A) 69 %; Platelet Count 281 k/uL (150-450); RBC 4.71 m/uL (4.30-5.90); WBC 8.4 k/uL (3.8-10.6)
[2023-01-10] MEDS ORDERED: cefTRIAXone 250 MG VIAL IM STA (14:27)
[2023-01-10 14:50] VITALS: BP 138/96; PULSE 75; RESP 16
[2023-01-11 00:02] LABS: Mumps Virus IgG Ab Interp POSITIVE; Mumps Virus IgG Antibody 4.8 AI
== END 2023-01-10 14:50 | disposition home or self-care (01) ==
LOC: EC 11:11
DX: N45.3 Epididymo-orchitis (principal); N43.3 Hydrocele, unspecified; I86.1 Scrotal varices; J45.909 Unspecified asthma, uncomplicated; F12.90 Cannabis use, unspecified, uncomplicated; F17.200 Nicotine dependence, unspecified, uncomplicated; Z91.013 Allergy to seafood
CPT/HCPCS: 36415; 86735 ×2; 87491; 85025; 81003; 93975; 76870; 99284; 96372 ×2; J0696; J1885

== ENCOUNTER → 2023-08-15 | Outpatient (CLI) | payer BC ==
--- NOTE | 2023-08-15 13:41 | US ---
EXAMINATION TYPE: US abdomen comp/pelvis limited DATE OF EXAM: 08/15/2023 COMPARISON: None CLINICAL INDICATION: Male, 42 years old with history of R93.5 ABN FINDING R10.9 UNSPECIFIED ABDOMINAL PAIN; Reduced kidney function. Left intermittent pain x 6 months. EXAM MEASUREMENTS: Liver Length: 14.3 cm Gallbladder Wall: 0.21 cm CBD: Obscured Spleen: 10.9 cm Right Kidney: 10.5 x 6.2 x 5.5 cm Left Kidney: 9.4 x 5.3 x 5.4 cm Post Void Residual: 4.22 mL Elephant Keeper notes: Limited due to gas. Pancreas: Limited visibility. Duct upper limits of normal, measuring 3.2 mm. Liver: Slightly coarsened appearance may be undetectable basis due to patient body habitus and promi nent rim and bowel gas shadowing. Gallbladder: Appears anechoic. CBD: Obscured Spleen: Appears wnl Right Kidney: Limited due to gas and small rib spaces. No hydronephrosis or masses seen Left Kidney: No hydronephrosis or masses seen Upper IVC: Appears wnl Abd Aorta: Appears wnl, iliac arteries were obscured. Bladder: Appears wnl Bilateral Jets Seen Yes Normal Post Void Residual (normal less than 50ml) Yes IMPRESSION: 1. Limited detailed assessment of the liver due to extensive rib and bowel gas shadowing. 2. No gallstones. The bile duct was obscured by bowel gas and could not be assessed. 3. No hydronephrosis on either side. 4. No sonographic evidence for urinary retention. Postvoid bladder volume of 4 mL.
== END | disposition home or self-care (01) ==
LOC: RADUSWWP 08:28
PROVIDERS: ATTEND Psychiatry & Neurology Neurology
DX: R93.5 Abnormal findings on diagnostic imaging of other abdominal regions, including retroperitoneum (principal); R10.9 Unspecified abdominal pain
CPT/HCPCS: 76700; 76857

== ENCOUNTER → 2023-09-08 | Outpatient (CLI) | payer BC ==
--- NOTE | 2023-09-08 09:38 | CT ---
EXAMINATION TYPE: CT abdomen pelvis wo con DATE OF EXAM: 09/08/2023 COMPARISON: 09/16/2020 INDICATION: Lt flank pain DLP: 636.7 mGycm, Automated exposure control for dose reduction was used. CONTRAST: 0 mL of Isovue 300. Study performed without Oral Contrast TECHNIQUE: Axial images were obtained from above the diaphragm to the pubic rami in the axial plane a t 5 mm thick sections. Reconstructed images are reviewed on the computer in the coronal plane. FINDINGS: Limited CT sections are obtained the lung bases. The lung bases are clear. CT ABDOMEN: Liver: Normal Spleen: Normal Pancreas: Normal Adrenal glands: The adrenal glands are normal. Gallbladder: Normal Kidneys: No masses are evident. No hydronephrosis is present. No cysts are present. No renal stone s are identified. Aorta: Normal Inferior vena cava: Normal. CT PELVIS: Loops of bowel within the abdomen and pelvis are normal. The study is without oral contrast limit ing pathology evaluation. Appendix: Not identified. No dilated tubular structure or inflammatory changes evident. Urinary bladder: Decompressed Genitourinary structures: Prostate contains a punctate calcification Osseous structures: No suspicious lytic or sclerotic lesions. IMPRESSION: 1. No suspicious abnormalities to account for left flank pain.
== END | disposition home or self-care (01) ==
LOC: RADCTMAIN 08:59
PROVIDERS: ATTEND Internal Medicine
DX: R10.9 Unspecified abdominal pain (principal)
CPT/HCPCS: 74176

== ENCOUNTER → 2023-10-10 | Outpatient (CLI) | payer BC ==
[2023-10-10 09:29] LABS: Appearance,Urine Clear (Clear); Bilirubin,Urine Negative (Negative); Blood,Urine Negative (Negative); Color,Urine Colorless; Glucose,Urine (UA) Negative (Negative); Ketones,Urine Negative (Negative); Leukocyte Esterase,Urine Negative (Negative); Nitrite,Urine Negative (Negative); Protein,Urine Negative (Negative); Specific Gravity,Urine 1.022 (1.001-1.035); Urobilinogen,Urine <2.0 mg/dL (<2.0)
[2023-10-10 15:12] LABS: ALT 25 U/L (10-49); AST 16 U/L (14-35); Albumin 4.5 g/dL (3.8-4.9); Albumin/Globulin Ratio 1.45 Ratio (1.60-3.17); Alkaline Phosphatase 79 U/L (41-126); BUN/Creat Ratio 10.86 Ratio (12.00-20.00); Blood Urea Nitrogen 15.2 mg/dL (9.0-27.0); Calcium 9.8 mg/dL (8.7-10.3); Carbon Dioxide 26.1 mmol/L (21.6-31.8); Chloride 102 mmol/L (96-109); Chol/HDL Ratio 3.41 Ratio; Globulin 3.1 g/dL (1.6-3.3); Glucose 106 mg/dL (70-110); LDL Cholesterol,Calculated 122.5 mg/dL (0.0-131.0); Potassium 4.3 mmol/L (3.5-5.5); Sodium 140 mmol/L (135-145); Total Bilirubin 0.3 mg/dL (0.3-1.2); Total Protein 7.6 g/dL (6.2-8.2); VLDL Calculation 18.18 mg/dL (5.00-40.00)
[2023-10-10 15:18] LABS: Protein, Total 7.7 g/dL (6.2-8.2)
[2023-10-10 15:53] LABS: Basophils # (A) 0.05 X 10*3/uL (0.00-0.10); Basophils % (A) 0.9 %; Eosinophils # (A) 0.22 X 10*3/uL (0.04-0.35); HCT 43.4 % (39.6-50.0); HGB 14.3 g/dL (13.0-17.0); Hepatitis C IgG Antibody Nonreactive (Nonreactive); Lymphocytes # (A) 1.58 X 10*3/uL (0.90-5.00); MCH 30.1 pg (27.0-32.0); MCHC 32.9 g/dL (32.0-37.0); MCV 91.4 FL (80.0-97.0); Mean Platelet Volume 11.7 FL (9.5-12.2); Monocytes % (A) 9.2 %; NRBC Per 100 WBC 0 X 10*3/uL (0.00-0.01); Neutrophils # (A) 3.07 X 10*3/uL (1.80-7.70); Neutrophils % (A) 56.3 %; Platelet Count 283 X 10*3/uL (140-440); RBC 4.75 X 10*6/uL (4.40-5.60); RDW 13.3 % (11.5-14.5); WBC 5.45 X 10*3/uL (4.50-10.00)
[2023-10-10 16:03] LABS: Streptolysin O Ab(ASO) 1015 IntlUnit/L (0-200)
[2023-10-10 17:17] LABS: HIV 2 AB Non-Reactive (Non-Reactive); HIV AB P24 Non-Reactive (Non-Reactive); HIV P24 AG Non-Reactive (Non-Reactive)
[2023-10-11 12:08] LABS: C-ANCA <1:20 Titer (<1:20)
[2023-10-11 18:17] LABS: Albumin 4.34 g/dL (3.80-4.90); Gamma Globulin 1.56 g/dL (0.70-1.50)
== END | disposition home or self-care (01) ==
LOC: LABWHC1 08:03
PROVIDERS: ATTEND Internal Medicine
DX: Z00.00 Encounter for general adult medical examination without abnormal findings (principal); Z11.59 Encounter for screening for other viral diseases; N28.9 Disorder of kidney and ureter, unspecified
CPT/HCPCS: 36415; 80053; 80061; 81003; 84165; 85025; 86039; 86060; 86255; 86803; 87205; 87390

== ENCOUNTER → 2023-11-22 | Outpatient (CLI) | payer BC ==
--- NOTE | 2023-11-23 09:59 | CA ---
Transthoracic Echo Report Name: Nathaniel Ramon Age: 43 Gender: M : 1980 Exam Date: 11/22/2023 13:42 Exam Location: [facility] Ht (in): 69 Wt (lb): 205 Ordering Physician: Timbo Hackett DO Attending/Referring Phys: Timbo Hackett DO Laborer Tree Tapping Cristela Singh, [facility] Procedure CPT: Indications: R76.0 ANTI-STREPTOLYSIN TITER ABNORMAL Cardiac Hx: Technical Quality: Fair Contrast 1: Total Dose (mL): Contrast 2: Total Dose (mL): MEASUREMENTS (Male / Female) Normal Values 2D ECHO LV Diastolic Diameter PLAX 3.3 cm 4.2 - 5.9 / 3.9 - 5.3 cm LV Systolic Diameter PLAX 2.1 cm IVS Diastolic Thickness 1.7 cm 0.6 - 1.0 / 0.6 - 0.9 cm LVPW Diastolic Thickness 1.5 cm 0.6 - 1.0 / 0.6 - 0.9 cm LV Relative Wall Thickness 1.0 LA Volume 48.8 cm??? 18 - 58 / 22 - 52 cm??? LA Volume Index 22.7 cm???/m??? 16 - 28 cm???/m??? M-MODE Aortic Root Diameter MM 2.7 cm LA Systolic Diameter MM 4.3 cm LA Ao Ratio MM 1.6 AV Cusp Separation MM 1.9 cm DOPPLER AV Peak Velocity 115.0 cm/s AV Peak Gradient 5.3 mmHg AV Mean Velocity 79.2 cm/s AV Mean Gradient 2.7 mmHg AV Velocity Time Integral 22.0 cm LVOT Peak Velocity 94.1 cm/s LVOT Peak Gradient 3.5 mmHg LVOT Velocity Time Integral 16.3 cm MV Area PHT 3.5 cm??? Mitral E Point Velocity 108.9 cm/s Mitral A Point Velocity 66.2 cm/s Mitral E to A Ratio 1.6 MV Deceleration Time 218.2 ms MV E' Velocity 6.0 cm/s Mitral E to MV E' Ratio 18.3 TR Peak Velocity 196.3 cm/s TR Peak Gradient 15.4 mmHg Right Ventricular Systolic Press 19.7 mmHg FINDINGS Left Ventricle Moderately increased left ventricular wall thickness. Left ventricular cavity size normal. Normal left ventricular systolic function with no obvious regional wall motion abnormalities. Left ventricular ejection fraction is estimated at 55-60 %. Right Ventricle Normal right ventricular size and function. Right ventricular systolic pressure within normal limits. Right Atrium Normal right atrial size. Left Atrium Normal left atrial size. Left atrial size at the upper limits of normal. Mitral Valve Structurally normal mitral valve. No evidence for mitral valve prolapse. No mitral stenosis. Trace mitral regurgitation. An echodensity was identified on the posterior mitral leaflet Aortic Valve Trileaflet aortic valve. No aortic valve stenosis or regurgitation. Tricuspid Valve Structurally normal tricuspid valve. Trace to mild tricuspid regurgitation. Pulmonic Valve Structurally normal pulmonic valve. Pericardium No pericardial effusion. Aorta Normal size aortic root and proximal ascending aorta. CONCLUSIONS Normal LV systolic function Cannot rule out an echodensity attached to the upstream side of the posterior mitral leaflet was identified on parasternal long axis view Previewed by: Dr. Héctor Reed MD (Electronically Signed) Final Date: 23 November 2023 09:58
== END | disposition home or self-care (01) ==
LOC: RADECHMAIN 13:34
PROVIDERS: ATTEND Internal Medicine
DX: I36.1 Nonrheumatic tricuspid (valve) insufficiency (principal); I34.0 Nonrheumatic mitral (valve) insufficiency; R76.0 Raised antibody titer
CPT/HCPCS: 93306

== ENCOUNTER 2023-12-23 00:32 | Emergency (ER) | payer BC ==
[2023-12-23 00:35] VITALS: RESP 18; TEMP 97.8
--- NOTE | 2023-12-23 00:52 | ED ---
Chest Pain HPI - General Chief Complaint: Chest Pain Stated Complaint: CHEST PAIN, SOB Time Seen by Provider: 12/23/23 00:38 Source: patient Mode of arrival: ambulatory Limitations: no limitations - Related Data Home Medications Medication Instructions Recorded Confirmed levETIRAcetam [Keppra] 500 mg PO TID 05/29/20 05/29/20 Previous Rx's Medication Instructions Recorded Ondansetron Odt [Zofran Odt] 4 mg PO Q8HR PRN #10 tab 05/29/20 HYDROcodone/APAP 5-325MG [[place] 1 tab PO Q6HR PRN #12 tab 09/16/20 5-325] Ibuprofen [Motrin] 600 mg PO Q8HR PRN #24 tab 09/16/20 Levofloxacin [Levaquin] 500 mg PO DAILY 10 Days #10 tab 01/10/23 HYDROcodone/APAP 5-325MG [[place] 1 tab PO Q6HR PRN 3 Days #12 tab 12/23/23 5-325] Ketorolac [Toradol] 10 mg PO Q6HR PRN #16 tab 12/23/23 Allergies Allergy/AdvReac Type Severity Reaction Status Date / Time Fish Containing Products AdvReac Nausea Verified 12/23/23 00:36 [Fish] Review of Systems ROS Statement: Those systems with pertinent positive or pertinent negative responses have been documented in the HPI. ROS Other: All systems not noted in ROS Statement are negative. EKG Findings - EKG Results: EKG: interpreted by PETER, sinus rhythm (Rate 88 bpm), normal axis, normal QRS - Blocks, Mccool, Hypertrophy, ST Abn: Repolarization changes or abnormalities: nonspecific abnormality, ST segment, and/or T wave Past Medical History Past Medical History: Asthma, Seizure Disorder Additional Past Medical History / Comment(s): Pt seen in ER 05/24/18 possible seizure/head injury History of Any Multi-Drug Resistant Organisms: None Reported Past Surgical History: No Surgical Hx Reported Additional Past Surgical History / Comment(s): 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 Past Anesthesia/Blood Transfusion Reactions: No Reported Reaction Past Psychological History: No Psychological Hx Reported Smoking Status: Former smoker Past Alcohol Use History: None Reported Past Drug Use History: Marijuana - Past Family History Father Family Medical History: CVA/TIA Additional Family Medical History / Comment(s): Father had a CVA. He is Mother Family Medical History: Cancer Additional Family Medical History / Comment(s): Mother of ovarian cancer. General Exam Limitations: no limitations Course Vital Signs 12/23/23 00:34 Temperature 97.8 F Pulse Rate 94 Respiratory 18 Rate Blood Pressure 170/91 O2 Sat by Pulse 96 Oximetry Disposition Clinical Impression: Chest pain Disposition: HOME SELF-CARE Condition: Good Instructions (If sedation given, give patient instructions): Chest Pain (ED) Prescriptions: HYDROcodone/APAP 5-325MG [[place] 5-325] 1 tab PO Q6HR PRN 3 Days #12 tab PRN Reason: Pain Ketorolac [Toradol] 10 mg PO Q6HR PRN #16 tab PRN Reason: Pain Is patient prescribed a controlled substance at d/c from ED?: No Referrals: Yobany Tapia Jr, DO [Primary Care Provider] - 1-2 days Héctor Reed MD [STAFF PHYSICIAN] - 1-2 days
[2023-12-23 01:24] LABS: Basophils % (A) 1 %; Eosinophils # (A) 0.4 k/uL (0-0.7); Eosinophils % (A) 7 %; HCT 40.3 % (39.0-53.0); Lymphocytes # (A) 1.7 k/uL (1.0-4.8); Lymphocytes % (A) 31 %; MCH 32.4 pg (25.0-35.0); MCHC 34.7 g/dL (31.0-37.0); MCV 93.4 fL (80.0-100.0); Mean Platelet Volume 8.6; Monocytes # (A) 0.3 k/uL (0-1.0); Monocytes % (A) 5 %; Neutrophils % (A) 54 %; Platelet Count 277 k/uL (150-450); RBC 4.31 m/uL (4.30-5.90); RDW 13.7 % (11.5-15.5); WBC 5.5 k/uL (3.8-10.6)
[2023-12-23 01:36] LABS: INR 0.9 (<1.2); Partial Thromboplastin Time 26.8 sec (22.0-30.0); Prothrombin Time 10.3 sec (10.0-12.5)
--- NOTE | 2023-12-23 02:50 | XR ---
EXAM: XR Chest, 2 Views CLINICAL HISTORY: ITS.REASON XR Reason: Chest Pain TECHNIQUE: Frontal and lateral views of the chest. COMPARISON: No relevant prior studies available. FINDINGS: Lungs: No consolidation or mass. Pleural space: No effusion. Heart: Mild cardiomegaly. Bones/joints: No acute findings. IMPRESSION: No acute cardiopulmonary process.
[2023-12-23 03:01] LABS: ALT 27 U/L (4-49); AST 27 U/L (17-59); African American GFR (CKD) 87 (>60 ml/min/1.73 sqM); Albumin 4.3 g/dL (3.5-5.0); Alkaline Phosphatase 82 U/L (38-126); Anion Gap 8 mmol/L; Blood Urea Nitrogen 12 mg/dL (9-20); Calcium 9.4 mg/dL (8.4-10.2); Carbon Dioxide 23 mmol/L (22-30); Chloride 106 mmol/L (98-107); Glucose 166 mg/dL (74-99); Magnesium 1.8 mg/dL (1.6-2.3); Non-African American GFR(CKD) 75 (>60 ml/min/1.73 sqM); Potassium 4.1 mmol/L (3.5-5.1); Sodium 137 mmol/L (137-145); Total Bilirubin 0.4 mg/dL (0.2-1.3); Total Protein 7.2 g/dL (6.3-8.2)
[2023-12-23 04:12] VITALS: BP 129/84; PULSE 68
== END 2023-12-23 04:23 | disposition home or self-care (01) ==
LOC: EC 00:32
DX: R07.9 Chest pain, unspecified (principal); R06.02 Shortness of breath; Z87.891 Personal history of nicotine dependence; Z91.013 Allergy to seafood
CPT/HCPCS: 36415; 71046; 80053; 83735; 84484; 85025; 85610; 85730; 93005; 99285

== ENCOUNTER → 2024-05-24 | Outpatient (CLI) | payer BC ==
--- NOTE | 2024-05-24 11:40 | US ---
EXAMINATION TYPE: US abdomen limited DATE OF EXAM: 05/24/2024 COMPARISON: NONE CLINICAL INDICATION: Male, 43 years old with history of R10.9 ABD PAIN K82.8 GALLBLADDER DISEASE K85. 90 PA; Att Gallbladder and Pancreas TECHNIQUE: Grayscale and color Doppler imaging of the right upper quadrant. FINDINGS: EXAM MEASUREMENTS: Liver Length: 13.6 cm Gallbladder Wall: 0.2 cm CBD: obscured by bowel gas Right Kidney: 8.6x5.3x5.4 cm EVENT STAFF NOTES: Pancreas: Tail obscured by overlying bowel gas Liver: wnl Gallbladder: wnl Evidence for sonographic Escoto's sign: No CBD: Obscured by overlying bowel gas Right Kidney: wnl exam limited by bowel and habitus IMPRESSION: 1. No evidence for acute process. 2. Hepatic steatosis. [facility], , 05/24/2024 11:38 AM
== END | disposition home or self-care (01) ==
LOC: RADUSWWP 08:47
PROVIDERS: ATTEND Psychiatry & Neurology Neurology
DX: K82.8 Other specified diseases of gallbladder (principal); K85.90 Acute pancreatitis without necrosis or infection, unspecified; K76.0 Fatty (change of) liver, not elsewhere classified
CPT/HCPCS: 76705

== ENCOUNTER 2024-08-04 12:20 | Emergency (ER) | payer BC ==
--- NOTE | 2024-08-04 12:31 | ED ---
Seizure HPI - General Stated Complaint: Seizure Time Seen by Provider: 08/04/24 12:25 - History of Present Illness Initial Comments: Nathaniel is a 43-year-old male with a history of seizure disorder on Lamictal and Trileptal last seizure 2 years ago. Patient was in anabaptist this morning he had not taken his medications prior to anabaptist and during anabaptist he developed a tonic-clonic seizure reports seizure lasted maybe 2 to 3 minutes and EMS was called. Upon their arrival the patient was postictal but hemodynamically stable with a blood glucose of 101. Patient was brought to the ER for evaluation. Notes he has been suffering from a sore throat for about 4 to 5 weeks this started after using his CPAP, he was concerned that maybe the CPAP was not clean and he had mold exposure he has been seen by his primary care and ENT he has been treated with oral antibiotics steroids a Bicillin injection and reports he still has a sore throat. He states that ENT told him he may need to have his tonsils out. - Related Data Home Medications Medication Instructions Recorded Confirmed Lacosamide 1 tab PO BID 07/11/24 07/11/24 OXcarbazepine [Trileptal] 1 tab PO BID 07/11/24 07/11/24 Previous Rx's Medication Instructions Recorded Azithromycin [Zithromax Z Pack] 1 tab PO DIRECTED #6 tab 08/04/24 Allergies Allergy/AdvReac Type Severity Reaction Status Date / Time No Known Allergies Allergy Verified 07/11/24 09:40 Review of Systems ROS Statement: Those systems with pertinent positive or pertinent negative responses have been documented in the HPI. ROS Other: All systems not noted in ROS Statement are negative. 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 Past Anesthesia/Blood Transfusion Reactions: No Reported Reaction Smoking Status: Never smoker - Past Family History Father Family Medical History: CVA/TIA Additional Family Medical History / Comment(s): Father had a CVA. He is Mother Family Medical History: Cancer Additional Family Medical History / Comment(s): Mother of ovarian cancer. General Exam - General Exam Comments Initial Comments: Physical Exam GENERAL: Patient is well-developed and well-nourished. Patient is nontoxic and well-hydrated and is in no distress. HENT: Normocephalic, Atraumatic. Posterior oropharynx erythematous without any petechia or exudate uvula is midline EYES: PERRL, EOMI PULMONARY: Unlabored respirations. CARDIOVASCULAR: RRR Warm and well perfused extremities ABDOMEN: Non-distended SKIN: No rashes or bruising : Deferred NEUROLOGIC: Alert and oriented Normal speech Normal gait MUSCULOSKELETAL: Moving all extremities with no apparent injury PSYCHIATRIC: No SI/HI Course Vital Signs 08/04/24 12:21 Temperature 98.2 F Pulse Rate 97 Respiratory 18 Rate Blood Pressure 145/93 O2 Sat by Pulse 97 Oximetry Medical Decision Making - Medical Decision Making Was pt. sent in by a medical professional or institution ([facility], FLOORING HELPER, urgent care, hospital, or [facility]...) When possible be specific @ -No Did you speak to anyone other than the patient for history (EMS, parent, family, police, friend...)? What history was obtained from this source @ -EMS, patient's Did you review nursing and triage notes (agree or disagree)? Why? @ -I reviewed and agree with nursing and triage notes Were old charts reviewed (outside hosp., previous admission, EMS record, old EKG, old radiological studies, urgent care reports/EKG's, [facility] records)? Report findings @ -Previous labs were reviewed, previous med record was reviewed Differential Diagnosis (chest pain, altered mental status, abdominal pain women, abdominal pain men, vaginal bleeding, weakness, fever, dyspnea, syncope, headache, dizziness, GI bleed, back pain, seizure, CVA, palpatations, mental health)? @ -Differential Seizure: Recurrent seizure disorder, febrile seizure, alcohol withdrawal, stimulants, meningitis, encephalitis, intercranial hemorrhage, intracranial tumor, stroke, eclampsia, thyrotoxicosis, hypocalcemia, hyponatremia, hypernatremia, hypomagnesemia, psychogenic, this is not meant to be an all-inclusive list. EKG interpreted by me (3pts min.). @ -As above X-rays interpreted by me (1pt min.). @ -None done CT interpreted by me (1pt min.). @ -None done U/S interpreted by me (1pt. min.). @ -None done What testing was considered but not performed or refused? (CT, X-rays, U/S, labs)? Why? @ -Imaging was considered but given the patient's history of seizure disorder no imaging indicated for breakthrough seizure What meds were considered but not given or refused? Why? @ -Ativan was considered but patient had no active seizing therefore was not given Did you discuss the management of the patient with other professionals (professionals i.e. , PA, FLOORING HELPER, lab, RT, psych nurse, certified social workers in health care, harness brusher, teacher, credit officer, pillowcase sewer)? Give summary @ -No Was smoking cessation discussed for >3mins.? @ -No Was critical care preformed (if so, how long)? @ -No Were there social determinants of health that impacted care today? How? (Homelessness, low income, unemployed, alcoholism, drug addiction, transportation, low edu. Level, literacy, decrease access to med. care, halfway, rehab)? @ -No Was there de-escalation of care discussed even if they declined (Discuss DNR or withdrawal of care, Hospice)? DNR status @ -No What co-morbidities impacted this encounter? (DM, HTN, Smoking, COPD, CAD, Cancer, CVA, ARF, Chemo, Hep., AIDS, mental health diagnosis, sleep apnea, morbid obesity)? @ -None Was patient admitted / discharged? Hospital course, mention meds given and route, prescriptions, significant lab abnormalities, going to OR and other pertinent info. @ -Discharged Was seen and evaluated, history obtained from EMS and the patient and . Patient has a history of seizure disorder and had a breakthrough seizure today. He did miss his morning medication but reports that it is not atypical for him to take his medications after anabaptist labs here revealed mildly elevated BUN and creatinine and a low CO2 consistent with a seizure activity. No other acute abnormalities were noted. Patient received his home medications here while in the ER, he returned to his baseline neurostatus and was alert oriented and stable for discharge home with outpatient follow-up with his neurologist. Once the patient's postictal state had resolved he did report a sore throat sound like this is becoming a chronic problem for him he is following with ENT he did request a dose of antibiotics which will be prescribed at discharge. Undiagnosed new problem with uncertain prognosis? @ -No Drug Therapy requiring intensive monitoring for toxicity (Heparin, Nitro, Insulin, Cardizem)? @ -No Were any procedures done? @ -No Diagnosis/symptom? @ -Breakthrough seizure Acute, or Chronic, or Acute on Chronic? @ -Acute Uncomplicated (without systemic symptoms) or Complicated (systemic symptoms)? @ -Default Side effects of treatment? @ -No Exacerbation, Progression, or Severe Exacerbation? @ -No Poses a threat to life or bodily function? How? (Chest pain, USA, SD, pneumonia, PE, COPD, DKA, ARF, appy, cholecystitis, CVA, Diverticulitis, Homicidal, Suicidal, threat to staff... and all critical care pts) @ -Unlikely - Lab Data Result diagrams: 08/04/24 12:31 08/04/24 12:31 Lab Results 08/04/24 08/04/24 Range/Units 12:31 12:31 WBC 7.8 (3.8-10.6) k/uL RBC 5.07 (4.30-5.90) m/uL Hgb 15.2 (13.0-17.5) gm/dL Hct 46.6 (39.0-53.0) % MCV 92.0 (80.0-100.0) fL MCH 30.1 (25.0-35.0) pg MCHC 32.7 (31.0-37.0) g/dL RDW 13.7 (11.5-15.5) % Plt Count 342 (150-450) k/uL MPV 8.4 Neutrophils % 57 % Lymphocytes % 32 % Monocytes % 7 % Eosinophils % 2 % Basophils % 1 % Neutrophils # 4.4 (1.3-7.7) k/uL Lymphocytes # 2.5 (1.0-4.8) k/uL Monocytes # 0.5 (0-1.0) k/uL Eosinophils # 0.1 (0-0.7) k/uL Basophils # 0.1 (0-0.2) k/uL Sodium 138 (137-145) mmol/L Potassium 3.9 (3.5-5.1) mmol/L Chloride 102 (98-107) mmol/L Carbon Dioxide 20 L (22-30) mmol/L Anion Gap 16 mmol/L BUN 15 (9-20) mg/dL Creatinine 1.36 H (0.66-1.25) mg/dL Est GFR (CKD-EPI)AfAm 74 (>60 ml/min/1.73 sqM) Est GFR (CKD-EPI)NonAf 64 (>60 ml/min/1.73 sqM) Glucose 102 H (74-99) mg/dL Calcium 9.9 (8.4-10.2) mg/dL Magnesium 1.8 (1.6-2.3) mg/dL Total Bilirubin 0.5 (0.2-1.3) mg/dL AST 18 (17-59) U/L ALT 22 (4-49) U/L Alkaline Phosphatase 70 (38-126) U/L Total Protein 7.9 (6.3-8.2) g/dL Albumin 4.8 (3.5-5.0) g/dL Disposition Clinical Impression: Breakthrough seizure, Sore throat Disposition: HOME SELF-CARE Condition: Stable Instructions (If sedation given, give patient instructions): Seizure/Epilepsy Discharge Instructions & Follow-Up Prescriptions: Azithromycin [Zithromax Z Pack] 1 tab PO DIRECTED #6 tab Is patient prescribed a controlled substance at d/c from ED?: No Referrals: Timbo Hackett DO [Primary Care Provider] - 1-2 days
[2024-08-04 12:46] LABS: Basophils # (A) 0.1 k/uL (0-0.2); Basophils % (A) 1 %; Eosinophils # (A) 0.1 k/uL (0-0.7); Eosinophils % (A) 2 %; HCT 46.6 % (39.0-53.0); HGB 15.2 gm/dL (13.0-17.5); Lymphocytes # (A) 2.5 k/uL (1.0-4.8); Lymphocytes % (A) 32 %; MCH 30.1 pg (25.0-35.0); MCHC 32.7 g/dL (31.0-37.0); Mean Platelet Volume 8.4; Monocytes # (A) 0.5 k/uL (0-1.0); Monocytes % (A) 7 %; Neutrophils # (A) 4.4 k/uL (1.3-7.7); Neutrophils % (A) 57 %; Platelet Count 342 k/uL (150-450); RBC 5.07 m/uL (4.30-5.90); RDW 13.7 % (11.5-15.5); WBC 7.8 k/uL (3.8-10.6)
[2024-08-04] MEDS: LACOSAMIDE 50 MG TABLET PO SCH (12:53)
[2024-08-04 12:55] LABS: ALT 22 U/L (4-49); AST 18 U/L (17-59); African American GFR (CKD) 74 (>60 ml/min/1.73 sqM); Albumin 4.8 g/dL (3.5-5.0); Alkaline Phosphatase 70 U/L (38-126); Anion Gap 16 mmol/L; Blood Urea Nitrogen 15 mg/dL (9-20); Calcium 9.9 mg/dL (8.4-10.2); Carbon Dioxide 20 mmol/L (22-30); Chloride 102 mmol/L (98-107); Glucose 102 mg/dL (74-99); Magnesium 1.8 mg/dL (1.6-2.3); Non-African American GFR(CKD) 64 (>60 ml/min/1.73 sqM); Potassium 3.9 mmol/L (3.5-5.1); Sodium 138 mmol/L (137-145); Total Bilirubin 0.5 mg/dL (0.2-1.3); Total Protein 7.9 g/dL (6.3-8.2)
[2024-08-04] MEDS: SODIUM CHLORIDE 0.9% 1,000 ML IV STA (12:55)
[2024-08-04] MEDS: OXcarbazepine 300 MG TAB PO SCH (14:08)
[2024-08-04 14:14] VITALS: BP 140/94; PULSE 69; RESP 16; TEMP 98.6
== END 2024-08-04 14:30 | disposition home or self-care (01) ==
LOC: EC 12:20
DX: G40.909 Epilepsy, unspecified, not intractable, without status epilepticus (principal); J02.9 Acute pharyngitis, unspecified; R79.89 Other specified abnormal findings of blood chemistry; Z79.899 Other long term (current) drug therapy
CPT/HCPCS: 36415; 80053; 83735; 85025; 93005; 96360; 99285